=== PATIENT | male | born 1945 | race Caucasian/White ===

== ENCOUNTER 2020-11-24 08:05 | Outpatient (REF) | payer MEDICARE, SELFPAY ==
[2020-11-24 09:01] LABS: MANUAL DIFF FLAG NO
[2020-11-24 09:10] LABS: Basophils Percent Auto 0.7 % (0-2); Eosinophils Absolute Auto 0.1 X10*3/uL (0.0-0.4); Eosinophils Percent Auto 2.6 % (0-4); Hematocrit 44.5 % (42-52); Hemoglobin 14.6 g/dl (14.0-18.0); Imm Gran Abs Auto 0.02 X10*3/uL (0.00-0.03); Imm Gran Pct Auto 0.4 % (0.0-0.4); Lymphocytes Absolute Auto 1.3 X10*3/uL (1.2-4.9); Lymphocytes Percent Auto 23.6 % (20-40); Mean Corpuscular HGB Conc 32.8 g/dl (31.0-36.0); Mean Corpuscular Hemoglobin 29.5 pg (27.0-33.0); Mean Corpuscular Volume 89.9 fL (80-98); Mean Platelet Volume 9.8 fL (9.4-12.4); Monocytes Absolute Auto 0.5 X10*3/uL (0.1-1.2); Monocytes Percent Auto 9.2 % (2-11); Neutrophils Absolute Auto 3.4 X10*3/uL (2.0-8.3); Neutrophils Percent Auto 63.5 % (45-73); Platelet Count 169 X10*3/uL (160-400); Red Blood Count 4.95 X10*6/uL (4.60-5.80); Red Cell Distribution Width 12.5 % (11.0-16.0); White Blood Count 5.4 X10*3/uL (4.8-10.8)
[2020-11-24 09:41] LABS: Alanine Aminotransferase 14 U/L (0-40); Albumin Level 4.2 g/dL (3.5-5.0); Alkaline Phosphatase 84 U/L (39-117); Anion Gap 13 (12-20); Aspartate Amino Transferase 13 U/L (5-37); Bilirubin Total 0.7 mg/dL (0.0-1.0); Blood Urea Nitrogen 18 mg/dL (9-16); Calcium 9.4 mg/dL (8.4-10.2); Carbon Dioxide 27 mmol/L (22-29); Chloride 109 mmol/L (96-108); Cholesterol 159 mg/dL; Estimated Glomerular Filt Rate > 60; Glucose Random 94 mg/dL (60-115); HDL Cholesterol 33 mg/dL; LDL Cholesterol Calculated 94 mg/dl; Potassium 4.1 mmol/L (3.3-5.1); Sodium 145 mmol/L (135-145); Total Protein 7.1 g/dL (6.5-8.0); Triglycerides 160 mg/dL
[2020-11-24 09:42] LABS: Free T4 (Free Thyroxine) 0.97 ng/dL (0.71-1.85); Thyroid Stimulating Hormone 1.87 uIU/mL (0.32-4.0)
[2020-11-24 09:59] LABS: Folate 8.9 ng/mL (> or = 4.0); Vitamin B12 480 pg/mL (200-900)
== END 2020-11-24 08:06 | disposition home or self-care (01) ==
LOC: HO.LAB 08:05
PROVIDERS: PCP Internal Medicine; Visit Provider Internal Medicine
DX: I10 Essential (primary) hypertension (principal); E78.00 Pure hypercholesterolemia, unspecified
CPT/HCPCS: 36415; 80053; 80061; 82607; 82746; 84439; 84443; 85025

== ENCOUNTER 2021-10-03 12:47 | Emergency (ER) | payer OTHER, MEDICARE, SELFPAY ==
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
[2021-10-03 12:57] VITALS: BP 155/76; PULSE 62; RESP 18; TEMP 36; O2SAT 94; BMI 32.8
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
[2021-10-03] MEDS: Cyclobenzaprine HCl 5 MG TABLET PO (13:26)
[2021-10-03 15:39] VITALS: BP 160/80; PULSE 89; RESP 20; TEMP 36.6; O2SAT 98
== END 2021-10-03 15:51 | disposition home or self-care (01) ==
PROVIDERS: Emergency Provider Emergency Medicine Emergency Medical Services; PCP Internal Medicine
DX: S89.92XA Unspecified injury of left lower leg, initial encounter (principal); S49.92XA Unspecified injury of left shoulder and upper arm, initial encounter; S16.1XXA Strain of muscle, fascia and tendon at neck level, initial encounter; M25.512 Pain in left shoulder; M54.2 Cervicalgia; M79.605 Pain in left leg; G44.309 Post-traumatic headache, unspecified, not intractable; Y99.9 Unspecified external cause status; V43.52XA Car driver injured in collision with other type car in traffic accident, initial encounter; Y93.9 Activity, unspecified; Y92.410 Unspecified street and highway as the place of occurrence of the external cause; Z79.899 Other long term (current) drug therapy
CPT/HCPCS: 70450; 72125; 73030; 73552; 99283; 99284

== ENCOUNTER 2022-02-23 12:07 | Emergency (ER) | payer MEDICARE, SELFPAY ==
--- NOTE | ~2022-02-23 | XR_ITS ---
EXAMINATION: XR CHEST CLINICAL INFORMATION: Chest pain COMPARISON: None TECHNIQUE: Frontal view of the chest was obtained. FINDINGS: The lungs are well-expanded and clear of acute pneumonic process. The heart size and pulmonary vascularity is normal. Soft tissue density in the lower mediastinum may represent small hiatal hernia. No gross bony abnormality seen. XR/XR chest 1V IMPRESSION: Unremarkable chest exam.
[2022-02-23 12:15] VITALS: BP 180/70; PULSE 52
[2022-02-23 13:07] VITALS: BP 133/80; PULSE 48; RESP 20; TEMP 36.7; O2SAT 96; BMI 32.1
--- NOTE | 2022-02-23 13:10 | ECG_ITS ---
Test Reason : CP Blood Pressure : / mmHG Vent. Rate : 047 BPM Atrial Rate : 047 BPM P-R Int : 206 ms QRS Dur : 084 ms QT Int : 484 ms P-R-T Axes : -03 013 016 degrees QTc Int : 428 ms Sinus bradycardia Nonspecific ST abnormality Abnormal ECG No previous ECGs available Referred By: Elis Velasquez Electronically Signed By:NICKY GRIGSBY MD
--- NOTE | 2022-02-23 13:11 | ED_ITS ---
HPI - General Adult General Chief complaint: General Medical <Elis Velasquez MD - Last Filed: 02/23/22 13:12> Stated complaint: HIGH BLOOD PRESSURE PER EMS <Elis Velasquez MD - Last Filed: 02/23/22 13:12> Time Seen by Provider: 02/23/22 16:16 <Elis Velasquez MD - Last Filed: 02/23/22 13:12> Source: patient and EMS <NICK Morel - Last Filed: 02/23/22 16:59> Mode of arrival: EMS <NICK Morel - Last Filed: 02/23/22 16:59> Limitations: no limitations <NICK Morel - Last Filed: 02/23/22 16:59> History of Present Illness HPI narrative: 76 yo male history of anxiety, hypertension on lisinopril and atenolol, ventral hernia on a, COPD, PVD, obesity, osteoarthritis, carpal tunnel who presents to the ER for evaluation of elevated blood pressure. He reports taking his blood pressure this morning with his wrist monitor at home and initial reading was 180. He repeated in the other arm and it was 200. He had his brother's home nurse repeat his blood pressure and the readings were similar. She instructed him to come to the ER. At the time he was feeling ?slightly off. ? He had felt short of breath and anxious when EMS arrived. He was given nitro and aspirin by EMS. He reports taking both of his atenolol and lisinopril around 10 30 this morning and he took his blood pressure around noon time. He states his blood pressure is usually in the 130s systolic. He has been compliant. He denies any excessive waking her salt intake. No headache or chest pain at this time. <NICK Morel - Last Filed: 02/23/22 16:59> MD complaint: Elevated blood pressure <NICK Morel - Last Filed: 02/23/22 16:59> Onset (ago): hour(s) <NICK Morel Last Filed: 02/23/22 16:59> Location: head and chest <NICK Morel Last Filed: 02/23/22 16:59> Radiation: non-radiation <NICK Morel - Last Filed: 02/23/22 16:59> Severity: mild <NICK Morel - Last Filed: 02/23/22 16:59> Pain Consistency: now resolved <NICK Morel - Last Filed: 02/23/22 16:59> Relieving factors: none <NICK Morel - Last Filed: 02/23/22 16:59> Exacerbating factors: none <NICK Morel - Last Filed: 02/23/22 16:59> Associated symptoms: denies other symptoms <NICK Morel - Last Filed: 02/23/22 16:59> Treatments prior to arrival: none <NICK Morel - Last Filed: 02/23/22 16:59> Related Data Home medications: Home Medications Medication Instructions Recorded Confirmed cholecalciferol (vitamin D3) 25 25 mcg PO DAILY 02/28/20 12/08/21 mcg (1,000 unit) capsule cyanocobalamin (vitamin B-12) 500 500 mcg PO DAILY 02/28/20 12/08/21 mcg lozenges (Vitamin B-12) Previous Rx's Medication Instructions Recorded fluticasone propionate 50 2 spray intranasal DAILY #16 grams 03/13/21 mcg/actuation nasal spray,suspension (Allergy Relief (fluticasone)) atenolol 100 mg tablet 100 mg PO DAILY #90 tabs 06/04/21 lisinopril 40 mg tablet 40 mg PO DAILY 90 days #90 tabs 06/04/21 sertraline 50 mg tablet 50 mg PO DAILY #90 tabs 06/04/21 celecoxib 100 mg capsule 100 mg PO DAILY #90 caps 09/18/21 cyclobenzaprine 10 mg tablet 5 mg PO TID PRN muscle pain 7 days 10/03/21 #21 tabs nirmatrelvir 300 mg (150 mg See Rx Instructions PO .COMPLEX 01/07/22 x2)-ritonavir 100 mg tablet,dose #30 ea pack(EUA) (Paxlovid) oxycodone-acetaminophen 5 mg-325 1 tab PO Q6H PRN pain #112 tabs 02/12/22 mg tablet (Percocet) <Elis Velasquez MD - Last Filed: 02/23/22 13:12> Allergies/adverse reactions: Allergies Allergy/AdvReac Type Severity Reaction Status Date / Time No Known Allergies Allergy Verified 12/08/21 10:26 <Elis Velasquez MD - Last Filed: 02/23/22 13:12> Review of Systems Review of Systems: Constitutional: No Fever, No Chills ENT/Mouth: No sore throat, No Rhinorrhea Eyes: No Eye Pain, No Swelling, No Redness Cardiovascular: + Chest Pain, + SOB, No Orthopnea, No Edema Respiratory: No Cough, No Sputum, No Wheezing, No dyspnea Gastrointestinal: No Nausea, No Vomiting, No Diarrhea, No abdominal Pain Genitourinary: No Dysuria, No Urinary Frequency, No Hematuria Musculoskeletal: No joint pain, No Myalgias Skin: No Skin Lesions, No rash Neuro: No Weakness, No Numbness, No Dizziness, + Headache Psych: + Anxiety/Panic, No Depression Heme/Lymph: No Bruising, No Lymphadenopathy <NICK Morel - Last Filed: 02/23/22 16:59> [facility] Past Medical History Medical History: Medical History (Updated 02/23/22 @ 16:29 by NICK Morel) Anxiety Carpal tunnel syndrome COPD (chronic obstructive pulmonary disease) COVID-19 virus infection Diverticular disease Erectile dysfunction Fatty liver Hemorrhoids Hepatitis C Hypertension Obesity (BMI 30-39.9) Osteoarthritis Peripheral vascular disease Pernicious anemia <Elis Velasquez MD - Last Filed: 02/23/22 13:12> Surgical History: Surgical History History of arthroscopy of right knee History of carpal tunnel release History of knee replacement procedure of left knee History of knee replacement procedure of right knee History of nasal surgery History of removal of cyst History of tonsillectomy History of umbilical hernia repair <Elis Velasquez MD - Last Filed: 02/23/22 13:12> Family History Family History: Family History Father No problems noted. Mother Colon cancer Hypertension Brother Colon cancer Sister Colon cancer <Elis Velasquez MD - Last Filed: 02/23/22 13:12> Social History Social History: Social History (Updated 12/08/21 @ 10:47 by Janel Pitts MD) Housing: House Alcohol intake: former Patient Tobacco Use Status: Former Tobacco user Years Smoked: quit 1995 e-Cigarette/Vaping Use: Never Used Second Hand Smoke Exposure: No Advance Directives: No Advance Directives Information Provided: No Current occupational status: retired Cognitive needs: No Hearing needs: No Vision needs: Yes <Elis Velasquez MD - Last Filed: 02/23/22 13:12> Physical Exam ED Vital Signs: Vital Signs - 24 hr 02/23/22 13:07 02/23/22 15:25 02/23/22 15:33 Temperature 98.0 F 97.8 F Pulse Rate 48 L 48 L 50 Respiratory Rate 20 15 16 Blood Pressure 133/80 156/75 H 150/77 H Pulse Oximetry 96 98 99 Oxygen Delivery Method Room Air Room Air Room Air 02/23/22 16:40 Temperature 97.6 F Pulse Rate 50 Respiratory Rate 13 Blood Pressure 134/92 H Pulse Oximetry 99 Oxygen Delivery Method Room Air BMI result Body Mass Index 32.1 <Elis Velasquez MD - Last Filed: 02/23/22 13:12> Vital Signs - 24 hr 02/23/22 13:07 02/23/22 15:25 02/23/22 15:33 Temperature 98.0 F 97.8 F Pulse Rate 48 L 48 L 50 Respiratory Rate 20 15 16 Blood Pressure 133/80 156/75 H 150/77 H Pulse Oximetry 96 98 99 Oxygen Delivery Method Room Air Room Air Room Air 02/23/22 16:40 Temperature 97.6 F Pulse Rate 50 Respiratory Rate 13 Blood Pressure 134/92 H Pulse Oximetry 99 Oxygen Delivery Method Room Air BMI result Body Mass Index 32.1 <NICK Morel - Last Filed: 02/23/22 16:59> Appearance: Alert. Oriented X3. No acute distress. Eyes: Pupils equal, round and reactive to light. ENT: Pharynx normal. Neck: Normal inspection. Neck supple. CVS: Normal heart rate and rhythm. Pulses normal. Respiratory: No respiratory distress. Breath sounds normal. Abdomen: Soft and nontender. +BS x4 Skin: Skin warm and dry. Normal skin color. Normal skin turgor. No rashes. Extremities: No lower extremity edema. Neuro: Oriented X 3. No motor deficit. No sensory deficit. <NICK Morel - Last Filed: 02/23/22 16:59> Course Course Course Narrative: 76-year-old male with history of hypertension on lisinopril and atenolol who presents to the ER for evaluation of elevated blood pressure readings at home, reportedly 180-200 systolic. On arrival to the ER his blood pressure is 150 systolic. He was reporting short of breath but no chest pain or headache. No vision changes. Triage initiated lab workup and EKG. Troponin is negative. Labs unremarkable. Chest x-ray is clear. Renal function is normal and only trace protein in his urine. Repeat blood pressure in the 140 systolic. He appears well on exam is unremarkable. At this time no acute intervention to his antihypertensive regimen is required. He will follow-up with Dr. Pitts his outpatient PCP. He was advised to decrease his salt intake and increase his aerobic exercise. Return precautions were discussed. Stable for DC home. Patient agrees with plan. <NICK Morel - Last Filed: 02/23/22 16:59> Reevaluation(s) Reevaluation #1: 76-year-old male with history of hypertension controlled with lisinopril and atenolol, patient is was complaining of slight headache, mild chest pain and difficulty breathing his blood pressure this morning was checked by a nurse systolic was above 200 and was told to come to the hospital for further evaluation, patient in the ED had initial medical screening exam was unremarkable. Labs and EKG was ordered from triage. <Elis Velasquez MD - Last Filed: 02/23/22 13:12> Time: 13:11 <Elis Velasquez MD - Last Filed: 02/23/22 13:12> Medications Administered Discontinued Medications Generic Name Dose Route Start Last Admin Trade Name Freq PRN Reason Stop Dose Admin Sodium Chloride 1,000 mls @ 999 mls/hr 02/23/22 13:10 02/23/22 16:29 Ns IV 02/23/22 14:10 Infused .Q1H1M ONE Infusion <lEis Velasquez MD - Last Filed: 02/23/22 13:12> Medications Administered Discontinued Medications Generic Name Dose Route Start Last Admin Trade Name Freq PRN Reason Stop Dose Admin Sodium Chloride 1,000 mls @ 999 mls/hr 02/23/22 13:10 02/23/22 16:29 Ns IV 02/23/22 14:10 Infused .Q1H1M ONE Infusion <NICK Morel - Last Filed: 02/23/22 16:59> Medical Decision Making Lab Data Result diagrams: : 02/23/22 13:17 02/23/22 13:17 <Elis Velasquez MD - Last Filed: 02/23/22 13:12> Labs: Lab Results 02/23/22 02/23/22 02/23/22 Range/Units 13:17 13:17 13:17 WBC 5.9 (4.8-10.8) X10*3/uL RBC 4.70 (4.60-5.80) X10*6/uL Hgb 13.8 L (14.0-18.0) g/dl Hct 41.4 L (42.0-52.0) % MCV 88.1 (80.0-98.0) fL MCH 29.4 (27.0-33.0) pg MCHC 33.3 (31.0-36.0) g/dl RDW 12.6 (11.0-16.0) % Plt Count 187 (160-400) X10*3/uL MPV 9.4 (9.4-12.4) fL Immature Gran % (Auto) 0.2 (0.0-0.4) % Neut % (Auto) 66.5 (45-73) % Lymph % (Auto) 20.1 (20-40) % [place]on % (Auto) 10.4 (2-11) % Eos % (Auto) 1.9 (0-4) % Baso % (Auto) 0.9 (0-2) % Lymph # (Auto) 1.2 (1.2-4.9) X10*3/uL [place]on # (Auto) 0.6 (0.1-1.2) X10*3/uL Eos # (Auto) 0.1 (0.0-0.4) X10*3/uL Baso # (Auto) 0.1 (0.0-0.2) X10*3/uL Abs Immat Gran (auto) 0.01 (0.00-0.03) X10*3/uL Absolute Neuts (auto) 3.9 (2.0-8.3) x10*3/uL Absolute Nucleated RBC 0.000 (0.0-0.012) X10*3/uL Nucleated RBC % (auto) 0.0 (0.0-0.2) /100WBC Sodium 142 (135-145) mmol/L Potassium 4.5 (3.3-5.1) mmol/L Chloride 108 (96-108) mmol/L Carbon Dioxide 25 (22-29) mmol/L Anion Gap 14 (12-20) BUN 16 (9-16) mg/dL Creatinine 1.06 (0.5-1.4) mg/dL Estim Creat Clear Calc 75.1 Estimated GFR > 60 Random Glucose 77 (60-115) mg/dL Calcium 9.4 (8.4-10.2) mg/dL Total Bilirubin 0.5 (0.0-1.0) mg/dL Direct Bilirubin 0.2 (0.0-0.5) mg/dL AST 15 (5-37) U/L ALT 15 (0-40) U/L Alkaline Phosphatase 76 (39-117) U/L Troponin I High Sens < 3.5 (<3.5-35.0) ng/L Total Protein 7.1 (6.5-8.0) g/dL Albumin 4.2 (3.5-5.0) g/dL Lipase 36 (8-78) U/L Urine Color Urine Appearance Urine pH (5.0-9.0) Ur Specific [place] (1.005-1.025) Urine Protein (Neg-Trace) mg/dL Urine Glucose (UA) (Negative) mg/dL Urine Ketones (Negative) mg/dL Urine Blood (Negative) Urine Nitrite (Negative) Ur Leukocyte Esterase (Negative) 02/23/22 Range/Units 15:46 WBC (4.8-10.8) X10*3/uL RBC (4.60-5.80) X10*6/uL Hgb (14.0-18.0) g/dl Hct (42.0-52.0) % MCV (80.0-98.0) fL MCH (27.0-33.0) pg MCHC (31.0-36.0) g/dl RDW (11.0-16.0) % Plt Count (160-400) X10*3/uL MPV (9.4-12.4) fL Immature Gran % (Auto) (0.0-0.4) % Neut % (Auto) (45-73) % Lymph % (Auto) (20-40) % Weston % (Auto) (2-11) % Eos % (Auto) (0-4) % Baso % (Auto) (0-2) % Lymph # (Auto) (1.2-4.9) X10*3/uL Weston # (Auto) (0.1-1.2) X10*3/uL Eos # (Auto) (0.0-0.4) X10*3/uL Baso # (Auto) (0.0-0.2) X10*3/uL Abs Immat Gran (auto) (0.00-0.03) X10*3/uL Absolute Neuts (auto) (2.0-8.3) x10*3/uL Absolute Nucleated RBC (0.0-0.012) X10*3/uL Nucleated RBC % (auto) (0.0-0.2) /100WBC Sodium (135-145) mmol/L Potassium (3.3-5.1) mmol/L Chloride (96-108) mmol/L Carbon Dioxide (22-29) mmol/L Anion Gap (12-20) BUN (9-16) mg/dL Creatinine (0.5-1.4) mg/dL Estim Creat Clear Calc Estimated GFR Random Glucose (60-115) mg/dL Calcium (8.4-10.2) mg/dL Total Bilirubin (0.0-1.0) mg/dL Direct Bilirubin (0.0-0.5) mg/dL AST (5-37) U/L ALT (0-40) U/L Alkaline Phosphatase (39-117) U/L Troponin I High Sens (<3.5-35.0) ng/L Total Protein (6.5-8.0) g/dL Albumin (3.5-5.0) g/dL Lipase (8-78) U/L Urine Color Yellow Urine Appearance Clear Urine pH 5.5 (5.0-9.0) Ur Specific [place] >= 1.030 H (1.005-1.025) Urine Protein Trace (Neg-Trace) mg/dL Urine Glucose (UA) Negative (Negative) mg/dL Urine Ketones Negative (Negative) mg/dL Urine Blood Negative (Negative) Urine Nitrite Negative (Negative) Ur Leukocyte Esterase Negative (Negative) <Elis Velasquez MD - Last Filed: 02/23/22 13:12> Lab Results 02/23/22 02/23/22 02/23/22 Range/Units 13:17 13:17 13:17 WBC 5.9 (4.8-10.8) X10*3/uL RBC 4.70 (4.60-5.80) X10*6/uL Hgb 13.8 L (14.0-18.0) g/dl Hct 41.4 L (42.0-52.0) % MCV 88.1 (80.0-98.0) fL MCH 29.4 (27.0-33.0) pg MCHC 33.3 (31.0-36.0) g/dl RDW 12.6 (11.0-16.0) % Plt Count 187 (160-400) X10*3/uL MPV 9.4 (9.4-12.4) fL Immature Gran % (Auto) 0.2 (0.0-0.4) % Neut % (Auto) 66.5 (45-73) % Lymph % (Auto) 20.1 (20-40) % Weston % (Auto) 10.4 (2-11) % Eos % (Auto) 1.9 (0-4) % Baso % (Auto) 0.9 (0-2) % Lymph # (Auto) 1.2 (1.2-4.9) X10*3/uL Weston # (Auto) 0.6 (0.1-1.2) X10*3/uL Eos # (Auto) 0.1 (0.0-0.4) X10*3/uL Baso # (Auto) 0.1 (0.0-0.2) X10*3/uL Abs Immat Gran (auto) 0.01 (0.00-0.03) X10*3/uL Absolute Neuts (auto) 3.9 (2.0-8.3) x10*3/uL Absolute Nucleated RBC 0.000 (0.0-0.012) X10*3/uL Nucleated RBC % (auto) 0.0 (0.0-0.2) /100WBC Sodium 142 (135-145) mmol/L Potassium 4.5 (3.3-5.1) mmol/L Chloride 108 (96-108) mmol/L Carbon Dioxide 25 (22-29) mmol/L Anion Gap 14 (12-20) BUN 16 (9-16) mg/dL Creatinine 1.06 (0.5-1.4) mg/dL Estim Creat Clear Calc 75.1 Estimated GFR > 60 Random Glucose 77 (60-115) mg/dL Calcium 9.4 (8.4-10.2) mg/dL Total Bilirubin 0.5 (0.0-1.0) mg/dL Direct Bilirubin 0.2 (0.0-0.5) mg/dL AST 15 (5-37) U/L ALT 15 (0-40) U/L Alkaline Phosphatase 76 (39-117) U/L Troponin I High Sens < 3.5 (<3.5-35.0) ng/L Total Protein 7.1 (6.5-8.0) g/dL Albumin 4.2 (3.5-5.0) g/dL Lipase 36 (8-78) U/L Urine Color Urine Appearance Urine pH (5.0-9.0) Ur Specific [place] (1.005-1.025) Urine Protein (Neg-Trace) mg/dL Urine Glucose (UA) (Negative) mg/dL Urine Ketones (Negative) mg/dL Urine Blood (Negative) Urine Nitrite (Negative) Ur Leukocyte Esterase (Negative) 02/23/22 Range/Units 15:46 WBC (4.8-10.8) X10*3/uL RBC (4.60-5.80) X10*6/uL Hgb (14.0-18.0) g/dl Hct (42.0-52.0) % MCV (80.0-98.0) fL MCH (27.0-33.0) pg MCHC (31.0-36.0) g/dl RDW (11.0-16.0) % Plt Count (160-400) X10*3/uL MPV (9.4-12.4) fL Immature Gran % (Auto) (0.0-0.4) % Neut % (Auto) (45-73) % Lymph % (Auto) (20-40) % Weston % (Auto) (2-11) % Eos % (Auto) (0-4) % Baso % (Auto) (0-2) % Lymph # (Auto) (1.2-4.9) X10*3/uL [place]on # (Auto) (0.1-1.2) X10*3/uL Eos # (Auto) (0.0-0.4) X10*3/uL Baso # (Auto) (0.0-0.2) X10*3/uL Abs Immat Gran (auto) (0.00-0.03) X10*3/uL Absolute Neuts (auto) (2.0-8.3) x10*3/uL Absolute Nucleated RBC (0.0-0.012) X10*3/uL Nucleated RBC % (auto) (0.0-0.2) /100WBC Sodium (135-145) mmol/L Potassium (3.3-5.1) mmol/L Chloride (96-108) mmol/L Carbon Dioxide (22-29) mmol/L Anion Gap (12-20) BUN (9-16) mg/dL Creatinine (0.5-1.4) mg/dL Estim Creat Clear Calc Estimated GFR Random Glucose (60-115) mg/dL Calcium (8.4-10.2) mg/dL Total Bilirubin (0.0-1.0) mg/dL Direct Bilirubin (0.0-0.5) mg/dL AST (5-37) U/L ALT (0-40) U/L Alkaline Phosphatase (39-117) U/L Troponin I High Sens (<3.5-35.0) ng/L Total Protein (6.5-8.0) g/dL Albumin (3.5-5.0) g/dL Lipase (8-78) U/L Urine Color Yellow Urine Appearance Clear Urine pH 5.5 (5.0-9.0) Ur Specific [place] >= 1.030 H (1.005-1.025) Urine Protein Trace (Neg-Trace) mg/dL Urine Glucose (UA) Negative (Negative) mg/dL Urine Ketones Negative (Negative) mg/dL Urine Blood Negative (Negative) Urine Nitrite Negative (Negative) Ur Leukocyte Esterase Negative (Negative) <NICK Morel - Last Filed: 02/23/22 16:59> ECG Data Attestation: I personally reviewed and interpreted this ECG as follows: <NICK Godfrey - Last Filed: 02/23/22 16:59> Prior ECG tracings: not available for review <NICK Morel - Last Filed: 02/23/22 16:59> Interpretation: Sinus bradycardia, heart rate 47 beats per minute, AK interval prolonged slightly 206 MS, normal QTC, no ST segment elevations or depressions. <NICK Morel - Last Filed: 02/23/22 16:59> Critical Care Time Critical Care Time Critical Care Time: No <NICK Morel - Last Filed: 02/23/22 16:59> Discharge Plan Discharge Clinical Impression: Hypertension, Ventral hernia <Elis Velasquez MD - Last Filed: 02/23/22 13:12> Patient Disposition: Home, Self-Care <Elis Velasquez MD - Last Filed: 02/23/22 13:12> Instructions: DASH Eating Plan (ED), Hypertension (ED) <Elis Velasquez MD - Last Filed: 02/23/22 13:12> Additional Instructions: Lab workup today was normal. Chest x-ray was normal. Your heart enzyme was negative. Your blood pressure was 140-150s/70-80's while in the ER Recommend continuing your current BP medications Decrease your salt intake, increase aerobic exercise Follow up with your PCP If you develop new or worsening symptoms call 911 or come back to the ER for further evaluation. <Elis Velasquez MD - Last Filed: 02/23/22 13:12> Prescriptions: No Action atenolol 100 mg tablet 100 mg PO DAILY Qty: 90 3RF lisinopril 40 mg tablet 40 mg PO DAILY 90 Days Qty: 90 2RF sertraline 50 mg tablet 50 mg PO DAILY Qty: 90 3RF celecoxib 100 mg capsule 100 mg PO DAILY Qty: 90 2RF Paxlovid (EUA) 300 mg (150 mg x 2)-100 mg tablets,dose pack See Rx Instructions PO .COMPLEX Qty: 30 0RF Rx Instructions: take TWO 150 mg tablets of nirmatrelvir with ONE 100 mg tablet of ritonavir twice daily for 5 days PO oxycodone-acetaminophen [Percocet] 5-325 mg tablet 1 tab PO Q6H PRN (Reason: pain) Qty: 112 0RF cyclobenzaprine 10 mg tablet 5 mg PO TID PRN (Reason: muscle pain) 7 Days Qty: 21 0RF cholecalciferol (vitamin D3) 25 mcg (1,000 unit) capsule 25 mcg PO DAILY cyanocobalamin (vitamin B-12) [Vitamin B-12] 500 mcg lozenge 500 mcg PO DAILY fluticasone propionate [Allergy Relief (fluticasone)] 50 mcg/actuation spray,suspension 2 spray intranasal DAILY Qty: 16 4RF Rx Instructions: administer into each nostril <Elis Velasquze MD - Last Filed: 02/23/22 13:12>
[2022-02-23 13:22] LABS: MANUAL DIFF FLAG NO
[2022-02-23 13:25] LABS: Basophils Absolute Auto 0.1 X10*3/uL (0.0-0.2); Basophils Percent Auto 0.9 % (0-2); Eosinophils Absolute Auto 0.1 X10*3/uL (0.0-0.4); Eosinophils Percent Auto 1.9 % (0-4); Hematocrit 41.4 % (42.0-52.0); Hemoglobin 13.8 g/dl (14.0-18.0); Imm Gran Abs Auto 0.01 X10*3/uL (0.00-0.03); Imm Gran Pct Auto 0.2 % (0.0-0.4); Lymphocytes Absolute Auto 1.2 X10*3/uL (1.2-4.9); Lymphocytes Percent Auto 20.1 % (20-40); Mean Corpuscular HGB Conc 33.3 g/dl (31.0-36.0); Mean Corpuscular Hemoglobin 29.4 pg (27.0-33.0); Mean Corpuscular Volume 88.1 fL (80.0-98.0); Mean Platelet Volume 9.4 fL (9.4-12.4); Monocytes Absolute Auto 0.6 X10*3/uL (0.1-1.2); Monocytes Percent Auto 10.4 % (2-11); Neutrophils Absolute Auto 3.9 x10*3/uL (2.0-8.3); Neutrophils Percent Auto 66.5 % (45-73); Platelet Count 187 X10*3/uL (160-400); Red Cell Distribution Width 12.6 % (11.0-16.0); White Blood Count 5.9 X10*3/uL (4.8-10.8)
[2022-02-23 13:48] LABS: Troponin-I High Sensitivity < 3.5 ng/L (<3.5-35.0)
[2022-02-23 15:11] LABS: Alanine Aminotransferase 15 U/L (0-40); Albumin Level 4.2 g/dL (3.5-5.0); Alkaline Phosphatase 76 U/L (39-117); Anion Gap 14 (12-20); Aspartate Amino Transferase 15 U/L (5-37); Bilirubin Direct 0.2 mg/dL (0.0-0.5); Bilirubin Total 0.5 mg/dL (0.0-1.0); Blood Urea Nitrogen 16 mg/dL (9-16); Calcium 9.4 mg/dL (8.4-10.2); Carbon Dioxide 25 mmol/L (22-29); Chloride 108 mmol/L (96-108); Creatinine Clr Calc Pharmacy 75.1; Estimated Glomerular Filt Rate > 60; Glucose Random 77 mg/dL (60-115); Lipase 36 U/L (8-78); Potassium 4.5 mmol/L (3.3-5.1); Sodium 142 mmol/L (135-145); Total Protein 7.1 g/dL (6.5-8.0)
[2022-02-23] MEDS: 0.9 % Sodium Chloride 1,000 ML 999 ML IV (15:24)
[2022-02-23 15:25] VITALS: BP 156/75; PULSE 48; RESP 15; O2SAT 98
[2022-02-23 15:33] VITALS: BP 150/77; PULSE 50; RESP 16; TEMP 36.6; O2SAT 99
[2022-02-23 15:57] LABS: Appearance Urine Clear; Color Urine Yellow; Glucose Urine UA Negative (Negative); Leukocyte Esterase Urine Negative (Negative); Nitrite Urine Negative (Negative); PH 5.5 (5.0-9.0); Specific Gravity - Urine >= 1.030 (1.005-1.025); Urine Blood Negative (Negative); Urine Ketones Negative (Negative); Urine Protein Trace mg/dL (Neg-Trace)
[2022-02-23 16:40] VITALS: BP 134/92; PULSE 50; RESP 13; TEMP 36.4; O2SAT 99
== END 2022-02-23 17:06 | disposition home or self-care (01) ==
PROVIDERS: Emergency Medicine; Emergency Provider Internal Medicine
DX: K43.9 Ventral hernia without obstruction or gangrene (principal); R07.89 Other chest pain; I10 Essential (primary) hypertension; Z79.899 Other long term (current) drug therapy; Z87.891 Personal history of nicotine dependence
CPT/HCPCS: 36415; 71045; 80048; 80076; 81003; 83690; 84484; 85025; 93005; 96360; 99284

== ENCOUNTER 2022-03-02 07:12 | Outpatient (REF) | payer MEDICARE, SELFPAY ==
[2022-03-02 11:38] LABS: MANUAL DIFF FLAG NO
[2022-03-02 12:17] LABS: Basophils Percent Auto 0.7 % (0-2); Eosinophils Absolute Auto 0.2 X10*3/uL (0.0-0.4); Eosinophils Percent Auto 2.9 % (0-4); Hematocrit 44.7 % (42.0-52.0); Hemoglobin 14.6 g/dl (14.0-18.0); Imm Gran Abs Auto 0.01 X10*3/uL (0.00-0.03); Imm Gran Pct Auto 0.2 % (0.0-0.4); Lymphocytes Absolute Auto 1.3 X10*3/uL (1.2-4.9); Lymphocytes Percent Auto 22.2 % (20-40); Mean Corpuscular HGB Conc 32.7 g/dl (31.0-36.0); Mean Corpuscular Hemoglobin 29.6 pg (27.0-33.0); Mean Corpuscular Volume 90.5 fL (80.0-98.0); Mean Platelet Volume 9.9 fL (9.4-12.4); Monocytes Absolute Auto 0.6 X10*3/uL (0.1-1.2); Monocytes Percent Auto 9.5 % (2-11); Neutrophils Absolute Auto 3.7 x10*3/uL (2.0-8.3); Neutrophils Percent Auto 64.5 % (45-73); Platelet Count 183 X10*3/uL (160-400); Red Blood Count 4.94 X10*6/uL (4.60-5.80); Red Cell Distribution Width 13.1 % (11.0-16.0); White Blood Count 5.8 X10*3/uL (4.8-10.8)
[2022-03-02 13:01] LABS: Folate 6.3 ng/mL (> or = 4.0); Vitamin B12 522 pg/mL (200-900)
[2022-03-02 13:05] LABS: Alanine Aminotransferase 11 U/L (0-40); Alkaline Phosphatase 74 U/L (39-117); Anion Gap 12 (12-20); Aspartate Amino Transferase 14 U/L (5-37); Bilirubin Total 0.7 mg/dL (0.0-1.0); Blood Urea Nitrogen 21 mg/dL (9-16); Calcium 9.2 mg/dL (8.4-10.2); Carbon Dioxide 27 mmol/L (22-29); Chloride 108 mmol/L (96-108); Cholesterol 151 mg/dL; Estimated Glomerular Filt Rate > 60; Free T4 (Free Thyroxine) 0.83 ng/dL (0.71-1.85); Glucose Random 99 mg/dL (60-115); HDL Cholesterol 37 mg/dL; LDL Cholesterol Calculated 86 mg/dl; Sodium 143 mmol/L (135-145); Thyroid Stimulating Hormone 2.44 uIU/mL (0.32-4.0); Triglycerides 143 mg/dL
== END 2022-03-02 07:13 | disposition home or self-care (01) ==
LOC: HO.HMGCLDS 07:12
PROVIDERS: PCP Internal Medicine; Visit Provider Internal Medicine
DX: I10 Essential (primary) hypertension (principal); E78.00 Pure hypercholesterolemia, unspecified
CPT/HCPCS: 36415; 80053; 80061; 82607; 82746; 84439; 84443; 85025

== ENCOUNTER 2022-12-15 09:55 | Outpatient (AMB) | payer MEDICARE, SELFPAY ==
[2022-12-15 10:04] VITALS: BP 138/70; PULSE 56; O2SAT 97; BMI 31.5
--- NOTE | 2022-12-15 10:04 | A.OFFVIS_ITS ---
Intake Vital Signs 12/15/22 10:04 Height 5 ft 11 in Weight 226 lb BMI 31.5 BP 138/70 Blood Pressure Location Lt brachial Position Sitting Pulse 56 Pulse Source Pulse Oximeter Pulse Oximetry (%) 97 Oxygen Delivery Method Room Air Intake Visit Reasons: SWV G0439 Allergies No Known Allergies Allergy (Verified 12/15/22 10:06) Medication List - Last Reconciled 12/15/22 by Janel Pitts MD atenolol 100 mg PO DAILY celecoxib 100 mg PO DAILY cholecalciferol (vitamin D3) 25 mcg PO DAILY cyanocobalamin (vitamin B-12) (Vitamin B-12) 500 mcg PO DAILY cyclobenzaprine 5 mg (1/2 x 10 mg) PO TID PRN 7 days fluticasone propionate 50 mcg/actuation (Allergy Relief (fluticasone)) 2 sprays intranasal DAILY lisinopril 40 mg PO DAILY 90 days oxycodone-acetaminophen 5-325 mg (Percocet) 1 tab PO Q6H PRN sertraline 100 mg PO DAILY 90 days HPI SWV G0439 HPI Details 77-year-old obese male with hypertension generalized anxiety disorder COPD hypertension and osteoarthritis knee and hip coming in for well visit. Last seen in September 2022. Colonoscopy is up-to-date April 2027 with tubular adenoma 5 years problematic about son PFSH Medical History Anxiety Carpal tunnel syndrome COPD (chronic obstructive pulmonary disease) COVID-19 virus infection Diverticular disease Erectile dysfunction Fatty liver Hemorrhoids Hepatitis C Hypertension Obesity (BMI 30-39.9) Osteoarthritis Peripheral vascular disease Pernicious anemia Surgical History History of arthroscopy of right knee History of carpal tunnel release History of knee replacement procedure of left knee History of knee replacement procedure of right knee History of nasal surgery History of removal of cyst History of tonsillectomy History of umbilical hernia repair Family History (Updated 10/04/22 @ 09:37 by Monica James CMA) Father No problems noted. Mother Colon cancer Hypertension Brother Colon cancer Sister Colon cancer Social History Housing: House Alcohol intake: former Patient Tobacco Use Status: Former Tobacco user Tobacco use type: Cigarette Years Smoked: quit 1995 e-Cigarette/Vaping Use: Never Used Second Hand Smoke Exposure: No Current occupational status: retired Cognitive needs: No Hearing needs: No Vision needs: Yes Questionnaire Medicare Wellness Checkup [age] What gender do you identify with?: male During the past 4 weeks, how much have you been bothered by emotional problems such as feeling anxious, depressed, irritable, sad or downhearted, and blue?: quite a bit During the past 4 weeks, has your physical & emotional health limited your social activities with family, friends, neighbors, or groups?: slightly During the past 4 weeks, how much bodily pain have you generally had?: moderate pain During the past 4 weeks, was someone available to help you if you needed & wanted help?: yes, as much as I wanted During the past 4 weeks, what was the hardest physical activity you could do for at least 2 minutes?: moderate Can you get to places out of walking distance without help? (For eg., can you travel alone on buses, taxis or drive your car?): Yes Can you go shopping for groceries or clothes without someone's help?: Yes Can you prepare your own meals?: Yes Can you do your housework without help?: Yes Because of any health problems, do you need the help of another person with your personal care needs such as eating, bathing, dressing or getting around the house?: No Can you handle your own money without help?: Yes During the past 4 weeks, how would you rate your health in general?: good During the past 4 weeks how have things been going for you?: good & bad parts about equal Are you having difficulties driving your car?: sometimes Do you always fasten your seat belt when you are in a car?: yes, usually During past 4 weeks, have you been bothered by the following: never: Teeth or denture problems? and Problems using the telephone?, seldom: Falling or dizzy when standing up, sometimes: Trouble eating well? and Tiredness or fatigue? and always: Sexual problems? Have you fallen 2 or more times in the past year?: No Are you afraid of falling?: No Are you a smoker?: no During the past 4 weeks, how many drinks of wine, beer, or other alcoholic beverages did you have?: no alcohol at all Do you exercise for about 20 minutes 3 or more times a week?: yes, some of the time Have you been given information to help with the following?: yes: Hazards in your house that might hurt you? and yes: Keeping track of your medications? How often do you have trouble taking medicines the way you have been told to take them?: I always take medicine as prescribed How confident are you that you can control & manage most of your health problems?: somewhat confident What is your race?: White PHQ-9 Over the last 2 weeks, how often have you been bothered by any of the following problems? 1. Little interest or pleasure in doing things: several days 2. Feeling down, depressed, or hopeless: more than half the days 3. Trouble falling or staying asleep, or sleeping too much: more than half the days 4. Feeling tired or having little energy: more than half the days 5. Poor appetite or overeating: not at all 6. Feeling bad about yourself - or that you are a failure or have let yourself or your family down: more than half the days 7. Trouble concentrating on things, such as reading the newspaper or watching television: several days 8. Moving or speaking so slowly that other people could have noticed. Or the opposite - being so fidgety or restless that you have been moving around a lot more than usual: not at all 9. Thoughts that you would be better off or of hurting yourself in some way: not at all Total score: 10 Depression Screening Interpretation: Positive Source: Developed by Drs. Regino Moran, Natacha Vallejo, Ash Wolf and colleagues, with an educational jose luis from [employer]. Thrive Questionnaire Date Thrive assessed: 10/04/22 DEVON-7 AMB Questionnaire DEVON-7 Date DEVON - 7 assessed: 10/04/22 Source: Developed by Drs. Regino Moran, Natacha Vallejo, Ash Wolf and colleagues, with an educational jose luis from [employer]. Review of Systems Const Denies poor appetite and Denies weakness Eyes Denies no additional complaints ENT Reports Normal hearing present, Denies dizziness, Denies nasal congestion, Denies tinnitus and Denies sore throat Card Denies chest pain, Denies syncope, Denies rapid heart rate and Denies dyspnea Resp Denies cough and Denies dyspnea GI Denies change in stool character, Reports constipation, Denies diarrhea, Denies nausea and Denies vomiting Denies dysuria and Denies urinary frequency Neuro Reports Normal hearing present, Denies confusion, Denies dizziness, Denies syncope and Denies weakness Psych Denies confusion Physical Exam Vital Signs: Last Vital Signs Pulse 56 12/15/22 10:04 BP 138/70 12/15/22 10:04 Pulse Ox 97 12/15/22 10:04 Oxygen Delivery Method Room Air 12/15/22 10:04 BMI result Body Mass Index 31.5 Const General: No confusion Orientation/consciousness: No confusion HEENT Head: Yes normocephalic Ears: external ears normal and TM's normal bilaterally Face and sinus: Yes normal facial exam Mouth: moist mucous membranes Throat: Yes tonsils normal Eyes Conjunctivae: conjunctivae normal Pupils: Equal, round and reactive pupils present and Pupil accommodation reflex normal Direct Ophthalmoscopy: normal light reflex Neck Neck: No lymphadenopathy Thyroid: Thyroid normal Chest Chest palpation & inspection: normal inspection of the chest Resp Effort & Inspection: normal respiratory effort and no audible wheezes Auscultation: clear to auscultation bilaterally, no crackles, no wheezes and lung sounds not diminished Cardio Rate: regular rate Rhythm: regular rhythm Peripheral pulses: radial pulses present and dorsalis pedis present GI Other: guaiac negative prostate N Palpation (GI): no masses Auscultation: normal bowel sounds and normoactive bowel sounds Other: diastasis recti Male General Exam: Yes normal external exam Skin General skin exam: no rashes or lesions noted Rashes: no rashes Neuro General: No confusion Cranial nerves: Yes Equal, round and reactive pupils present and Yes Normal hearing present Cognition (Neuro): normal cognition Gait exam (Neuro): Normal gait present Motor exam (neuro): 5/5 motor strength present throughout Deep tendon reflexes (DTR's): Right brachioradialis reflex intensity grade: 2+, Left brachioradialis reflex intensity grade: 2+, Right patellar reflex intensity grade: 2+ and Left patellar reflex intensity grade: 2+ Extrem General: No edema Assessment & Plan Assessment & Plan (1) Encounter for subsequent annual wellness visit (AWV) in Medicare patient: Code(s): Z00.00 - Encounter for general adult medical examination without abnormal findings (2) Hypertension: Code(s): I10 - Essential (primary) hypertension Qualifiers: Hypertension type: essential hypertension Qualified Code(s): I10 - Essential (primary) hypertension Plan: Continue with blood pressure medication. Decrease salt intake and exercise patient is taking atenolol 100 mg once a day (3) Obesity (BMI 30-39.9): Code(s): E66.9 - Obesity, unspecified Plan: Diet and exercise (4) Osteoarthritis: Code(s): M19.90 - Unspecified osteoarthritis, unspecified site Qualifiers: Osteoarthritis location: multiple joints Osteoarthritis type: primary Qualified Code(s): M89.49 - Other hypertrophic osteoarthropathy, multiple sites Plan: Narcotic pain meds: Is being prescribed with the understanding that these m edications are potentially addictive and should be used only when absolutely necessary and must always be secured. Any remaining pills should be safely disposed off appropriately. Patient is advised that narcotics can impaired judgment and one should not drive or operate heavy machinery while taking these medications. Never share these medications with anybody and do not leave them unattended. They will not be replaced under any circumstances. (5) COPD (chronic obstructive pulmonary disease): Code(s): J44.9 - Chronic obstructive pulmonary disease, unspecified Qualifiers: COPD type: emphysema Emphysema type: panlobular Qualified Code(s): J43.1 - Panlobular emphysema Plan: Stable (6) Generalized anxiety disorder: Comment: Decline referral counseling( 11/2021) Code(s): F41.1 - Generalized anxiety disorder Plan: Continue with medication . Orders: Orders Vitamin B12 and Folate Today I10 - Essential (primary) hypertension Comprehensive Met. Panel Today I10 - Essential (primary) hypertension Lipid Panel Today E78.00 - Pure hypercholesterolemia, unspecified, I10 - Essential (primary) hypertension Free T4 (Free Thyroxine) Today I10 - Essential (primary) hypertension Thyroid Stimulating Hormone Today I10 - Essential (primary) hypertension Complete Blood Count Auto Diff Today I10 - Essential (primary) hypertension Quality Reporting (2019) Depression/Bipolar (159/160/161/177) PHQ-9: Total score: 10 Coding Level of Care Code Medicare Subsequent (G0439) Diagnoses Encounter for subsequent annual wellness visit (AWV) in Medicare patient Z00.00 Hypertension I10 Hypertension type: essential hypertension Obesity (BMI 30-39.9) E66.9 Osteoarthritis M89.49 Osteoarthritis location: multiple joints Osteoarthritis type: primary COPD (chronic obstructive pulmonary disease) J43.1 COPD type: emphysema Emphysema type: panlobular Generalized anxiety disorder F41.1
== END 2022-12-15 11:36 | disposition home or self-care (01) ==
PROVIDERS: PCP Internal Medicine; Visit Provider Internal Medicine
DX: Z00.00 Encounter for general adult medical examination without abnormal findings (principal); I10 Essential (primary) hypertension; E66.9 Obesity, unspecified; Z68.31 Body mass index [BMI] 31.0-31.9, adult; J43.1 Panlobular emphysema; M89.49 Other hypertrophic osteoarthropathy, multiple sites; F41.1 Generalized anxiety disorder
CPT/HCPCS: G0439

== ENCOUNTER 2023-03-24 09:17 | Outpatient (REF) | payer MEDICARE, SELFPAY ==
[2023-03-24 12:03] LABS: Basophils Percent Auto 0.1 % (0-2); Hematocrit 45.6 % (42.0-52.0); Hemoglobin 15.3 g/dl (14.0-18.0); Imm Gran Abs Auto 0.05 X10*3/uL (0.00-0.03); Imm Gran Pct Auto 0.4 % (0.0-0.4); Lymphocytes Absolute Auto 0.8 X10*3/uL (1.2-4.9); Lymphocytes Percent Auto 6.5 % (20-40); MANUAL DIFF FLAG SCAN; Mean Corpuscular HGB Conc 33.6 g/dl (31.0-36.0); Mean Corpuscular Hemoglobin 29.9 pg (27.0-33.0); Mean Corpuscular Volume 89.1 fL (80.0-98.0); Mean Platelet Volume 10.2 fL (9.4-12.4); Monocytes Absolute Auto 0.3 X10*3/uL (0.1-1.2); Monocytes Percent Auto 2.3 % (2-11); Neutrophils Absolute Auto 10.5 x10*3/uL (2.0-8.3); Neutrophils Percent Auto 90.7 % (45-73); Platelet Count 216 X10*3/uL (160-400); Red Blood Count 5.12 X10*6/uL (4.60-5.80); Red Cell Distribution Width 12.9 % (11.0-16.0); SCAN SMEAR FLAG 1; White Blood Count 11.5 X10*3/uL (4.8-10.8)
[2023-03-24 12:30] LABS: SLIDE REVIEW VERIFIED
[2023-03-24 12:38] LABS: Alanine Aminotransferase 10 U/L (0-40); Albumin Level 4.3 g/dL (3.5-5.0); Alkaline Phosphatase 77 U/L (39-117); Anion Gap 13 (12-20); Aspartate Amino Transferase 13 U/L (5-37); Bilirubin Total 0.7 mg/dL (0.0-1.0); Blood Urea Nitrogen 17 mg/dL (9-16); Calcium 9.9 mg/dL (8.4-10.2); Carbon Dioxide 27 mmol/L (22-29); Chloride 104 mmol/L (96-108); Cholesterol 183 mg/dL (<200); Estimated Glomerular Filt Rate > 60; Glucose Random 138 mg/dL (60-115); HDL Cholesterol 45 mg/dL (>40); LDL Cholesterol Calculated 122 mg/dL (<100); Potassium 3.9 mmol/L (3.3-5.1); Sodium 140 mmol/L (135-145); Total Protein 7.8 g/dL (6.5-8.0); Triglycerides 84 mg/dL (<150)
[2023-03-24 12:39] LABS: Thyroid Stimulating Hormone 0.94 uIU/mL (0.32-4.0)
[2023-03-24 12:58] LABS: Folate 4.8 ng/mL (> or = 4.0); Vitamin B12 794 pg/mL (200-900)
== END 2023-03-24 09:18 | disposition home or self-care (01) ==
LOC: HO.HMGCLDS 09:17
PROVIDERS: PCP Internal Medicine; Visit Provider Internal Medicine
DX: I10 Essential (primary) hypertension (principal); E78.00 Pure hypercholesterolemia, unspecified
CPT/HCPCS: 36415; 80053; 80061; 82607; 82746; 84439; 84443; 85025

== ENCOUNTER 2023-03-29 10:38 | Outpatient (AMB) | payer MEDICARE, OTHER, SELFPAY ==
[2023-03-29 10:40] VITALS: BP 150/86; PULSE 61; O2SAT 96; BMI 31.6
--- NOTE | 2023-03-29 10:40 | MHC.PC.OV ---
Vital Signs 03/29/23 10:40 03/29/23 11:13 Height 5 ft 11 in Weight 226 lb 6 oz BMI 31.6 BP 150/86 H 120/70 Blood Pressure Location Lt brachial Lt brachial Position Sitting Sitting Pulse 61 Pulse Source Pulse Oximeter Pulse Oximetry (%) 96 Oxygen Delivery Method Room Air Intake Visit Reasons: DEVON Implementation Lead Required: No Accompanied by: Self / Same As Patient Allergies No Known Allergies Allergy (Verified 03/29/23 10:40) Tobacco use date assessed: 07/01/22 Fall risk assessment: No Falls in past year Last assessed Fall Risk: 03/29/23 Dental Screening Dental Screen Date: 03/29/23 Did you have a dental visit in the last 12 months?: Yes Did you have a dental problem in the last 6 months where you did not have access to dental care?: No Was dental information given to patient?: Patient has dentist HPI DEVON HPI Details 77-year-old obese male with hypertension osteoarthritis of the knee and lower back COPD generalized anxiety disorder last seen for an annual wellness in December 2022. Patient's colonoscopy is up-to-date April 2019. last week had a shot on he L shoulder hence the increase the BS. L shoulder pain - seeing ortho. PFS Medical History (Reviewed 07/01/22 @ 10:09 by Adalberto Wilson [facility]) Anxiety Carpal tunnel syndrome COPD (chronic obstructive pulmonary disease) COVID-19 virus infection Diverticular disease Erectile dysfunction Fatty liver Hemorrhoids Hepatitis C Hypertension Obesity (BMI 30-39.9) Osteoarthritis Peripheral vascular disease Pernicious anemia Surgical History History of nasal surgery History of knee replacement procedure of left knee History of knee replacement procedure of right knee History of arthroscopy of right knee History of removal of cyst History of carpal tunnel release History of tonsillectomy History of umbilical hernia repair Family History Father No problems noted. Mother Colon cancer Hypertension Brother Colon cancer Sister Colon cancer Social History Housing: House Alcohol intake: former Patient Tobacco Use Status: Former Tobacco user Tobacco use type: Cigarette Years Smoked: quit 1995 e-Cigarette/Vaping Use: Never Used Second Hand Smoke Exposure: No service: Yes Current occupational status: retired Cognitive needs: No Hearing needs: No Vision needs: Yes Questionnaire Thrive Questionnaire Date Thrive assessed: 10/04/22 DEVON-7 AMB Questionnaire DEVON-7 Date DEVON - 7 assessed: 03/29/23 Feeling nervous, anxious, or on edge: 0 = Not at all Not being able to stop or control worryin = Not at all Worrying too much about different things: 0 = Not at all Trouble relaxin = Not at all Being so restless that it is hard to sit still: 0 = Not at all Becoming easily annoyed or irritable: 0 = Not at all Feeling afraid as if something awful might happen: 0 = Not at all Total DEVON-7 score (0-4 normal; 5-9 mild; 10-14 moderate; 15-21 severe): 0 Source: Developed by Drs. Regino Moran, Natacha Vallejo, Ash Wolf and colleagues, with an educational jose luis from [employer]. DEVON-7 Assessment Billing DEVON-7 Assessment Tool: DEVON-7 Assessment 35126 Physical exam (Primary Care) Vital Signs: Last Vital Signs Pulse 61 03/29/23 10:40 BP 150/86 H 03/29/23 10:40 Pulse Ox 96 03/29/23 10:40 Oxygen Delivery Method Room Air 03/29/23 10:40 BMI result Body Mass Index 31.6 Tobacco/Smoking Status: Tobacco use Status Tobacco use date assessed 07/01/22 03/29/23 10:45 Patient Tobacco Use Status Former Tobacco user 03/29/23 10:45 Tobacco use type Cigarette 03/29/23 10:45 e-Cigarette/Vaping Use Never Used 03/29/23 10:45 Thrive Assessment: Date of Thrive Assessment Date Thrive assessed 10/04/22 03/29/23 10:45 Const General: alert; No acute distress Eyes Conjunctivae: conjunctivae normal Resp Auscultation: clear to auscultation bilaterally Cardio Rate: regular rate Rhythm: regular rhythm GI Inspection: Yes normal to inspection Extrem General: Yes normal to inspection and No edema Results AMB Hemoglobin A1c AMB Hemoglobin A1c 5.8 % Last Edit by PAULA Rock on 03/29/23 11:13 Assessment and Plan Assessment & Plan (1) Elevated blood sugar: Code(s): R73.9 - Hyperglycemia, unspecified Plan: Decrease the amount of carbohydrate intake, pasta, bread, rice and potatoes are all sugar and that is aside from all the sweet stuff, remember that fruits are good but they are Sweet also. (2) COPD (chronic obstructive pulmonary disease): Code(s): J44.9 - Chronic obstructive pulmonary disease, unspecified Qualifiers: COPD type: emphysema Emphysema type: panlobular Qualified Code(s): J43.1 - Panlobular emphysema Plan: Stable (3) Obesity (BMI 30-39.9): Code(s): E66.9 - Obesity, unspecified Plan: Diet and exercise (4) Hypertension: Code(s): I10 - Essential (primary) hypertension Qualifiers: Hypertension type: essential hypertension Qualified Code(s): I10 - Essential (primary) hypertension Plan: Continue with blood pressure medication. Decrease salt intake and exercise presently on lisinopril 40 mg once a day (5) Osteoarthritis: Code(s): M19.90 - Unspecified osteoarthritis, unspecified site Qualifiers: Osteoarthritis location: multiple joints Osteoarthritis type: primary Qualified Code(s): M89.49 - Other hypertrophic osteoarthropathy, multiple sites Plan: Lose the weight keep active. Narcotic plan (6) Impaired fasting blood sugar: Code(s): R73.01 - Impaired fasting glucose Orders: Orders AMB Hemoglobin A1c Today R73.9 - Hyperglycemia, unspecified Coding Level of Care Code Est Pt Level 4 (44351) Diagnoses Elevated blood sugar R73.9 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 type: panlobular Obesity (BMI 30-39.9) E66.9 Essential hypertension I10 Hypertension type: essential hypertension 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 Osteoarthritis location: multiple joints Osteoarthritis type: primary Impaired fasting blood sugar R73.01 Additional Codes DEVON-7 Assessment Billing - DEVON-7 Assessment Tool: DEVON-7 Assessment [id number] ([id number])
[2023-03-29 11:13] VITALS: BP 120/70
== END 2023-03-29 11:25 | disposition home or self-care (01) ==
PROVIDERS: PCP Internal Medicine; Visit Provider Internal Medicine
DX: R73.9 Hyperglycemia, unspecified (principal); J43.1 Panlobular emphysema; E66.9 Obesity, unspecified; Z68.31 Body mass index [BMI] 31.0-31.9, adult; R73.01 Impaired fasting glucose; I10 Essential (primary) hypertension; M89.49 Other hypertrophic osteoarthropathy, multiple sites
CPT/HCPCS: 83036; 99214

== ENCOUNTER 2023-07-08 09:48 | Outpatient (AMB) | payer MEDICARE, SELFPAY ==
[2023-07-08 09:50] VITALS: BP 162/90; PULSE 55; O2SAT 97; BMI 31.2
--- NOTE | 2023-07-08 09:50 | A.OFFPC_ITS ---
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 Captain Required: No Allergies No Known Allergies Allergy (Verified 07/08/23 09:50) Medication List - Last Reconciled 07/08/23 by Janel Pitts MD atenolol 100 mg PO DAILY celecoxib 100 mg PO DAILY cholecalciferol (vitamin D3) 25 mcg PO DAILY cyanocobalamin (vitamin B-12) (Vitamin B-12) 500 mcg PO DAILY fluticasone propionate 50 mcg/actuation (Allergy Relief (fluticasone)) 2 sprays intranasal DAILY lisinopril 40 mg PO DAILY 90 days oxycodone-acetaminophen 5-325 mg (Percocet) 1 tab PO Q6H PRN sertraline 100 mg PO DAILY 90 days Tobacco use date assessed: 07/08/23 Fall risk assessment: No Falls in past year Last assessed Fall Risk: 07/08/23 Dental Screening Dental Screen Date: 07/08/23 Did you have a dental visit in the last 12 months?: Yes Did you have a dental problem in the last 6 months where you did not have access to dental care?: No Was dental information given to patient?: Patient has dentist HPI IGT, osteoarthritis HPI Details 77-year-old obese male with a history of COPD hypertension impaired glucose tolerance last seen in March 2023. Patient's colonoscopy is up-to-date April 2019. Last blood work was March 2023. L primo injection done DELMI. BP high here but does check at home [facility] Medical History (Updated 07/08/23 @ 10:03 by Janel Pitts MD) Elevated blood sugar COVID-19 virus infection Fatty liver Hemorrhoids Diverticular disease Hepatitis C COPD (chronic obstructive pulmonary disease) Peripheral vascular disease Obesity (BMI 30-39.9) Osteoarthritis Pernicious anemia Anxiety Erectile dysfunction Carpal tunnel syndrome Hypertension Surgical History History of nasal surgery History of knee replacement procedure of left knee History of knee replacement procedure of right knee History of arthroscopy of right knee History of removal of cyst History of carpal tunnel release History of tonsillectomy History of umbilical hernia repair Family History Father No problems noted. Mother Colon cancer Hypertension Brother Colon cancer Sister Colon cancer Social History Housing: House Alcohol intake: former Patient Tobacco Use Status: Former Tobacco user Tobacco use type: Cigarette Years Smoked: quit 1995 e-Cigarette/Vaping Use: Never Used Second Hand Smoke Exposure: No service: Yes Current occupational status: retired Cognitive needs: No Hearing needs: No Vision needs: Yes Questionnaire PHQ-9 Over the last 2 weeks, how often have you been bothered by any of the following problems? 1. Little interest or pleasure in doing things: not at all 2. Feeling down, depressed, or hopeless: not at all 3. Trouble falling or staying asleep, or sleeping too much: not at all 4. Feeling tired or having little energy: not at all 5. Poor appetite or overeating: not at all 6. Feeling bad about yourself - or that you are a failure or have let yourself or your family down: not at all 7. Trouble concentrating on things, such as reading the newspaper or watching television: not at all 8. Moving or speaking so slowly that other people could have noticed. Or the opposite - being so fidgety or restless that you have been moving around a lot more than usual: not at all 9. Thoughts that you would be better off or of hurting yourself in some way: not at all Total score: 0 Depression Screening Interpretation: Negative Depression Screening Done: Yes 10778 - PHQ-9 Billing: Yes Source: Developed by Drs. Regino Moran, Natacha Vallejo, Ash oWlf and colleagues, with an educational jose luis from [employer]. Thrive Questionnaire Date Thrive assessed: 07/08/23 I am a: Patient What is your living situation today?: I have a steady place to live Within the past 12 months, did the food you bought not last and you didn't have the money to get more?: Never true Within the past 12 months, did you worry whether your food would run out before you got money to buy more?: Never true Do you have trouble paying for medicines?: No Do you have trouble getting transportation to medical appointments?: No Do you have trouble paying your heating and electricity bill?: No Do you have trouble taking care of your child, family member or friend?: No Do you have trouble with day-to-day activities such as bathing, preparing meals, shopping, managing finances, etc.?: No Are you currently unemployed and looking for a job?: No Are you interested in more education?: No Please select the resources that you would like help with: None Currently or been in a relationship where the following occur: no concerns reported THRIVE Score: 0 AUDIT C Alcohol Use Questionnaire (AUDIT-C) 1. How often do you have a drink containing alcohol?: Never 2. How many drinks containing alcohol do you have on a typical day when you are drinking?: 1 or 2 (0) 3. How often do you have six or more drinks on one occasion?: Never Total Score: 0 DEVON-7 AMB Questionnaire DEVON-7 Date DEVON - 7 assessed: 07/08/23 Feeling nervous, anxious, or on edge: 0 = Not at all Not being able to stop or control worryin = Not at all Worrying too much about different things: 0 = Not at all Trouble relaxin = Not at all Being so restless that it is hard to sit still: 0 = Not at all Becoming easily annoyed or irritable: 0 = Not at all Feeling afraid as if something awful might happen: 0 = Not at all Total DEVON-7 score (0-4 normal; 5-9 mild; 10-14 moderate; 15-21 severe): 0 Source: Developed by Drs. Regino Moran, Natacha Vallejo, Ash Wolf and colleagues, with an educational jose luis from [employer]. DEVON-7 Assessment Billing DEVON-7 Assessment Tool: DEVON-7 Assessment 97604 Physical exam (Primary Care) Vital Signs: Oxygen Delivery Method Room Air 07/08/23 09:50 Tobacco/Smoking Status: Tobacco use Status Tobacco use date assessed 07/01/22 03/29/23 10:45 Patient Tobacco Use Status Former Tobacco user 03/29/23 10:45 Tobacco use type Cigarette 03/29/23 10:45 e-Cigarette/Vaping Use Never Used 03/29/23 10:45 Depression Screening Interpretation: Negative Thrive Assessment: Date of Thrive Assessment Date Thrive assessed 10/04/22 03/29/23 10:45 Currently or been in a relationship where the following occur: no concerns reported Const General: alert; No acute distress Eyes Conjunctivae: conjunctivae normal Resp Auscultation: clear to auscultation bilaterally Cardio Rate: regular rate Rhythm: regular rhythm GI Inspection: Yes normal to inspection Extrem General: Yes normal to inspection and No edema Assessment and Plan Assessment & Plan (1) Obesity (BMI 30-39.9): Code(s): E66.9 - Obesity, unspecified Plan: Diet and exercise (2) Hypertension: Code(s): I10 - Essential (primary) hypertension Qualifiers: Hypertension type: essential hypertension Qualified Code(s): I10 - Essential (primary) hypertension Plan: Continue with blood pressure medication. Decrease salt intake and exercise patient takes atenolol 100 mg once a day and lisinopril 40 mg once a day (3) COPD (chronic obstructive pulmonary disease): Code(s): J44.9 - Chronic obstructive pulmonary disease, unspecified Qualifiers: COPD type: emphysema Emphysema type: panlobular Qualified Code(s): J43.1 - Panlobular emphysema Plan: Stable and declined any prescription for inhalers (4) Generalized anxiety disorder: Comment: Decline referral counseling( 11/2021) Code(s): F41.1 - Generalized anxiety disorder Plan: Continue with sertraline. (5) Impaired fasting blood sugar: Code(s): R73.01 - Impaired fasting glucose Plan: Decrease the amount of carbohydrate intake, pasta, bread, rice and potatoes are all sugar and that is aside from all the sweet stuff, remember that fruits are good but they are Sweet also. (6) Osteoarthritis: Comment: Knees and back Code(s): M19.90 - Unspecified osteoarthritis, unspecified site Qualifiers: Osteoarthritis location: multiple joints Osteoarthritis type: primary Qualified Code(s): M89.49 - Other hypertrophic osteoarthropathy, multiple sites Plan: Narcotic pain meds: Is being prescribed with the understanding that these medications are potentially addictive and should be used only when absolutely necessary and must always be secured. Any remaining pills should be safely disposed off appropriately. Patient is advised that narcotics can impaired judgment and one should not drive or operate heavy machinery while taking these medications. Never share these medications with anybody and do not leave them unattended. They will not be replaced under any circumstances. 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
== END 2023-07-08 10:07 | disposition home or self-care (01) ==
PROVIDERS: PCP Internal Medicine; Visit Provider Internal Medicine
DX: I10 Essential (primary) hypertension (principal); J43.1 Panlobular emphysema; E66.9 Obesity, unspecified; Z68.31 Body mass index [BMI] 31.0-31.9, adult; F41.1 Generalized anxiety disorder; R73.01 Impaired fasting glucose; M89.49 Other hypertrophic osteoarthropathy, multiple sites; M25.511 Pain in right shoulder
CPT/HCPCS: 99214

== ENCOUNTER 2023-10-17 09:40 | Outpatient (AMB) | payer MEDICARE, SELFPAY ==
[2023-10-17 10:06] VITALS: BP 128/70; PULSE 81; O2SAT 98; BMI 31.2
--- NOTE | 2023-10-17 10:06 | A.OFFPC_ITS ---
Vital Signs 10/17/23 10:06 Height 5 ft 11 in Weight 224 lb BMI 31.2 BP 128/70 Blood Pressure Location Lt brachial Position Sitting Pulse 81 Pulse Source Pulse Oximeter Pulse Oximetry (%) 98 Oxygen Delivery Method Room Air Intake Visit Reasons: 3 MONTH FOLLOW UP Allergies No Known Allergies Allergy (Verified 10/17/23 10:06) Tobacco use date assessed: 07/08/23 Fall risk assessment: No Falls in past year Last assessed Fall Risk: 10/17/23 Dental Screening Dental Screen Date: 07/08/23 HPI 3 MONTH FOLLOW UP HPI Details 78-year-old obese male with hypertension COPD generalized anxiety disorder impaired glucose tolerance osteoarthritis of the knees coming in for follow-up. Patient is seen every 3 months on narcotic pain medication. Patient's last colonoscopy was done in 04/30/2019. Had tubular adenoma. 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 hx of drinking problem and suicidal ideation. presently no S I - does have flashback [facility] Medical History (Updated 10/17/23 @ 10:38 by Janel Pitts MD) Elevated blood sugar COVID-19 virus infection Fatty liver Hemorrhoids Diverticular disease Hepatitis C COPD (chronic obstructive pulmonary disease) Peripheral vascular disease Obesity (BMI 30-39.9) Osteoarthritis Pernicious anemia Anxiety Erectile dysfunction Carpal tunnel syndrome Hypertension Surgical History History of nasal surgery History of knee replacement procedure of left knee History of knee replacement procedure of right knee History of arthroscopy of right knee History of removal of cyst History of carpal tunnel release History of tonsillectomy History of umbilical hernia repair Family History Father No problems noted. Mother Colon cancer Hypertension Brother Colon cancer Sister Colon cancer Social History Housing: House Alcohol intake: former Patient Tobacco Use Status: Former Tobacco user Tobacco use type: Cigarette Years Smoked: quit 1995 e-Cigarette/Vaping Use: Never Used Second Hand Smoke Exposure: No service: Yes Current occupational status: retired Cognitive needs: No Hearing needs: No Vision needs: Yes Questionnaire PHQ-9 Over the last 2 weeks, how often have you been bothered by any of the following problems? 1. Little interest or pleasure in doing things: not at all 2. Feeling down, depressed, or hopeless: not at all 3. Trouble falling or staying asleep, or sleeping too much: not at all 4. Feeling tired or having little energy: not at all 5. Poor appetite or overeating: not at all 6. Feeling bad about yourself - or that you are a failure or have let yourself or your family down: not at all 7. Trouble concentrating on things, such as reading the newspaper or watching television: not at all 8. Moving or speaking so slowly that other people could have noticed. Or the opposite - being so fidgety or restless that you have been moving around a lot more than usual: not at all 9. Thoughts that you would be better off or of hurting yourself in some way: not at all Total score: 0 Depression Screening Interpretation: Negative Depression Screening Done: Yes 06501 - PHQ-9 Billing: Yes Source: Developed by Drs. Regino Moran, Natacha Vallejo, Ash Wolf and colleagues, with an educational jose luis from [employer]. Thrive Questionnaire Date Thrive assessed: 07/08/23 AUDIT C Alcohol Use Questionnaire (AUDIT-C) 1. How often do you have a drink containing alcohol?: Never 2. How many drinks containing alcohol do you have on a typical day when you are drinking?: 1 or 2 (0) 3. How often do you have six or more drinks on one occasion?: Never Total Score: 0 DEVON-7 AMB Questionnaire DEVON-7 Date DEVON - 7 assessed: 07/08/23 Source: Developed by Drs. Regino Moran, Natacha Vallejo, Ash Wolf and colleagues, with an educational jose luis from [employer]. Physical exam (Primary Care) Vital Signs: Last Vital Signs Pulse 81 10/17/23 10:06 BP 128/70 10/17/23 10:06 Pulse Ox 98 10/17/23 10:06 Oxygen Delivery Method Room Air 10/17/23 10:06 BMI result Body Mass Index 31.2 Tobacco/Smoking Status: Tobacco use Status Tobacco use date assessed 07/08/23 10/17/23 10:10 Patient Tobacco Use Status Former Tobacco user 10/17/23 10:10 Tobacco use type Cigarette 10/17/23 10:10 e-Cigarette/Vaping Use Never Used 10/17/23 10:10 PHQ-9: PHQ-9 Score PHQ-9: Total score 0 10/17/23 10:10 Depression Screening Interpretation: Negative Thrive Assessment: Date of Thrive Assessment Date Thrive assessed 07/08/23 10/17/23 10:10 Const General: alert; No acute distress Eyes Conjunctivae: conjunctivae normal Resp Auscultation: clear to auscultation bilaterally Cardio Rate: regular rate Rhythm: regular rhythm GI Inspection: Yes normal to inspection Extrem General: Yes normal to inspection and No edema Assessment and Plan Assessment & Plan (1) Impaired fasting blood sugar: Code(s): R73.01 - Impaired fasting glucose Plan: Decrease the amount of carbohydrate intake, pasta, bread, rice and potatoes are all sugar and that is aside from all the sweet stuff, remember that fruits are good but they are Sweet also. (2) Hypertension: Code(s): I10 - Essential (primary) hypertension Qualifiers: Hypertension type: essential hypertension Qualified Code(s): I10 - Essential (primary) hypertension Plan: Continue with blood pressure medication. Decrease salt intake and exercise on lisinopril 40 mg once a day and atenolol 100 mg once a day (3) Obesity (BMI 30-39.9): Code(s): E66.9 - Obesity, unspecified Plan: Diet and exercise (4) Peripheral vascular disease: Comment: October 2023 pedal pulses normal Code(s): I73.9 - Peripheral vascular disease, unspecified Plan: When sitting down elevate the legs, exercise, and support stockings (5) Osteoarthritis: Comment: Knees and back Code(s): M19.90 - Unspecified osteoarthritis, unspecified site Qualifiers: Osteoarthritis location: multiple joints Osteoarthritis type: primary Qualified Code(s): M89.49 - Other hypertrophic osteoarthropathy, multiple sites Plan: Narcotic pain meds: Is being prescribed with the understanding that these medications are potentially addictive and should be used only when absolutely necessary and must always be secured. Any remaining pills should be safely disposed off appropriately. Patient is advised that narcotics can impaired judgment and one should not drive or operate heavy machinery while taking these medications. Never share these medications with anybody and do not leave them unattended. They will not be replaced under any circumstances. (6) COPD (chronic obstructive pulmonary disease): Code(s): J44.9 - Chronic obstructive pulmonary disease, unspecified Qualifiers: COPD type: emphysema Emphysema type: panlobular Qualified Code(s): J43.1 - Panlobular emphysema Plan: Stable (7) Generalized anxiety disorder: Comment: Decline referral counseling( 11/2021) Code(s): F41.1 - Generalized anxiety disorder Plan: Continue with present therapy. PAtient was advised to get counselling. and will reach out to his list. 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
== END 2023-10-17 10:43 | disposition home or self-care (01) ==
PROVIDERS: PCP Internal Medicine; Visit Provider Internal Medicine
DX: R73.01 Impaired fasting glucose (principal); I10 Essential (primary) hypertension; I73.9 Peripheral vascular disease, unspecified; M89.49 Other hypertrophic osteoarthropathy, multiple sites; F41.1 Generalized anxiety disorder
CPT/HCPCS: 99214

== ENCOUNTER 2023-12-20 10:09 | Outpatient (AMB) | payer MEDICARE, SELFPAY ==
[2023-12-20 10:11] VITALS: BP 132/72; PULSE 71; O2SAT 98; BMI 31.4
--- NOTE | 2023-12-20 10:11 | A.OFFPC_ITS ---
Vital Signs 12/20/23 10:11 Height 5 ft 11 in Weight 225 lb BMI 31.4 BP 132/72 Blood Pressure Location Lt brachial Position Sitting Pulse 71 Pulse Source Pulse Oximeter Pulse Oximetry (%) 98 Oxygen Delivery Method Room Air Intake Visit Reasons: Annual Exam Allergies No Known Allergies Allergy (Verified 12/20/23 10:12) Medication List - Last Reconciled 12/20/23 by Janel Pitts MD atenolol 100 mg PO DAILY celecoxib 100 mg PO DAILY cholecalciferol (vitamin D3) 25 mcg PO DAILY cyanocobalamin (vitamin B-12) (Vitamin B-12) 500 mcg PO DAILY fluticasone propionate 50 mcg/actuation (Allergy Relief (fluticasone)) 2 sprays intranasal DAILY lisinopril 40 mg PO DAILY 90 days oxycodone-acetaminophen 5-325 mg (Percocet) 1 tab PO Q6H PRN sertraline 100 mg PO DAILY 90 days Tobacco use date assessed: 07/08/23 Fall risk assessment: No Falls in past year Last assessed Fall Risk: 12/20/23 Dental Screening Dental Screen Date: 07/08/23 HPI Annual Exam HPI Details 78-year-old obese male with impaired glu cose tolerance COPD hypertension peripheral vascular disease , osteoarthritis on narcotic pain medication and generalized anxiety disorder coming in for physical exam last seen in October 2023. Patient's colonoscopy is up-to-date had it done in April 2019 having tubular adenoma.. decrease in urinary caliber. [facility] Medical History (Updated 12/20/23 @ 10:33 by Janel Pitts MD) Elevated blood sugar COVID-19 virus infection Fatty liver Hemorrhoids Diverticular disease Hepatitis C COPD (chronic obstructive pulmonary disease) Peripheral vascular disease Obesity (BMI 30-39.9) Osteoarthritis Pernicious anemia Anxiety Erectile dysfunction Carpal tunnel syndrome Hypertension Surgical History History of nasal surgery History of knee replacement procedure of left knee History of knee replacement procedure of right knee History of arthroscopy of right knee History of removal of cyst History of carpal tunnel release History of tonsillectomy History of umbilical hernia repair Family History Father No problems noted. Mother Colon cancer Hypertension Brother Colon cancer Sister Colon cancer Social History Housing: House Alcohol intake: former Patient Tobacco Use Status: Former Tobacco user Tobacco use type: Cigarette Years Smoked: quit 1995 e-Cigarette/Vaping Use: Never Used Second Hand Smoke Exposure: No service: Yes Current occupational status: retired Cognitive needs: No Hearing needs: No Vision needs: Yes Questionnaire PHQ-9 Over the last 2 weeks, how often have you been bothered by any of the following problems? 1. Little interest or pleasure in doing things: several days 2. Feeling down, depressed, or hopeless: not at all 3. Trouble falling or staying asleep, or sleeping too much: not at all 4. Feeling tired or having little energy: not at all 5. Poor appetite or overeating: not at all 6. Feeling bad about yourself - or that you are a failure or have let yourself or your family down: not at all 7. Trouble concentrating on things, such as reading the newspaper or watching television: not at all 8. Moving or speaking so slowly that other people could have noticed. Or the opposite - being so fidgety or restless that you have been moving around a lot more than usual: not at all 9. Thoughts that you would be better off or of hurting yourself in some way: not at all Total score: 1 Depression Screening Interpretation: Negative Depression Screening Done: Yes 54284 - PHQ-9 Billing: Yes Source: Developed by Drs. Regino Moran, Ash Monteiro and colleagues, with an educational jose luis from [email or web address]. Thrive Questionnaire Date Thrive assessed: 07/08/23 AUDIT C Alcohol Use Questionnaire (AUDIT-C) 1. How often do you have a drink containing alcohol?: Never 2. How many drinks containing alcohol do you have on a typical day when you are drinking?: 1 or 2 (0) 3. How often do you have six or more drinks on one occasion?: Never Total Score: 0 DEOVN-7 AMB Questionnaire DEVON-7 Date DEVON - 7 assessed: 07/08/23 Source: Developed by Drs. Regino Moran, Ash Monteiro and colleagues, with an educational jose luis from [email or web address]. Review of Systems Const Denies poor appetite and Denies weakness Eyes Denies no additional complaints ENT Reports Normal hearing present, Denies dizziness, Denies nasal congestion, Denies tinnitus and Denies sore throat Card Denies chest pain, Denies syncope, Denies rapid heart rate and Denies dyspnea Resp Denies cough and Denies dyspnea GI Denies change in stool character, Reports constipation, Denies diarrhea, Denies nausea and Denies vomiting Denies dysuria and Denies urinary frequency Neuro Reports Normal hearing present, Denies confusion, Denies dizziness, Denies syncope and Denies weakness Psych Denies confusion Physical exam (Primary Care) Vital Signs: Last Vital Signs Pulse 71 12/20/23 10:11 BP 132/72 12/20/23 10:11 Pulse Ox 98 12/20/23 10:11 Oxygen Delivery Method Room Air 12/20/23 10:11 BMI result Body Mass Index 31.4 Tobacco/Smoking Status: Tobacco use Status Tobacco use date assessed 07/08/23 12/20/23 10:15 Patient Tobacco Use Status Former Tobacco user 12/20/23 10:15 Tobacco use type Cigarette 12/20/23 10:15 e-Cigarette/Vaping Use Never Used 12/20/23 10:15 PHQ-9: PHQ-9 Score PHQ-9: Total score 1 12/20/23 10:18 Depression Screening Interpretation: Negative Thrive Assessment: Date of Thrive Assessment Date Thrive assessed 07/08/23 12/20/23 10:15 Const General: No confusion Orientation/consciousness: No confusion HENMT Other: impacted cerumen bilateral Head: Yes normocephalic Ears: external ears normal Face and sinus: Yes normal facial exam Mouth: moist mucous membranes Throat: Yes tonsils normal Eyes Conjunctivae: conjunctivae normal Pupils: Equal, round and reactive pupils present and Pupil accommodation reflex normal Direct Ophthalmoscopy: normal light reflex Neck Neck: No lymphadenopathy Thyroid: Thyroid normal Chest Chest palpation & inspection: normal inspection of the chest Resp Effort & Inspection: normal respiratory effort and no audible wheezes Auscultation: clear to auscultation bilaterally, no crackles, no wheezes and lung sounds not diminished Cardio Rate: regular rate Rhythm: regular rhythm Peripheral pulses: radial pulses present and dorsalis pedis present GI Other: guiaic negative prostate mild enlarged Palpation (GI): no masses Auscultation: normal bowel sounds and normoactive bowel sounds Male General Exam: Yes normal external exam Skin General skin exam: no rashes or lesions noted Rashes: no rashes Neuro General: No confusion Cranial nerves: Yes Equal, round and reactive pupils present and Yes Normal hearing present Cognition (Neuro): normal cognition Gait exam (Neuro): Normal gait present Motor exam (neuro): 5/5 motor strength present throughout Deep tendon reflexes (DTR's): Right brachioradialis reflex intensity grade: 2+, Left brachioradialis reflex intensity grade: 2+, Right patellar reflex intensity grade: 2+ and Left patellar reflex intensity grade: 2+ Extrem General: No edema Assessment and Plan Assessment & Plan (1) Annual physical exam: Code(s): Z00.00 - Encounter for general adult medical examination without abnormal findings Plan: Patient is advised to eat healthy, keep well hydrated, keep active and have adequate sleep. (2) Impaired fasting blood sugar: Code(s): R73.01 - Impaired fasting glucose Plan: Decrease the amount of carbohydrate intake, pasta, bread, rice and potatoes are all sugar and that is aside from all the sweet stuff, remember that fruits are good but they are Sweet also. (3) Osteoarthritis: Comment: Knees and back Code(s): M19.90 - Unspecified osteoarthritis, unspecified site Qualifiers: Osteoarthritis location: multiple joints Osteoarthritis type: primary Qualified Code(s): M89.49 - Other hypertrophic osteoarthropathy, multiple sites Plan: Narcotic pain meds: Is being prescribed with the understanding that these medications are potentially addictive and should be used only when absolutely necessary and must always be secured. Any remaining pills should be safely disposed off appropriately. Patient is advised that narcotics can impaired judgment and one should not drive or operate heavy machinery while taking these medications. Never share these medications with anybody and do not leave them unattended. They will not be replaced under any circumstances. And on Celebrex (4) Hypertension: Code(s): I10 - Essential (primary) hypertension Qualifiers: Hypertension type: essential hypertension Qualified Code(s): I10 - Essential (primary) hypertension Plan: Continue with blood pressure medication. Decrease salt intake and exercise takes lisinopril 40 mg once a day and atenolol 100 mg once a day (5) Obesity (BMI 30-39.9): Code(s): E66.9 - Obesity, unspecified Plan: Diet and exercise (6) COPD (chronic obstructive pulmonary disease): Code(s): J44.9 - Chronic obstructive pulmonary disease, unspecified Qualifiers: COPD type: emphysema Emphysema type: panlobular Qualified Code(s): J43.1 - Panlobular emphysema Plan: Stable (7) Generalized anxiety disorder: Comment: Decline referral counseling( 11/2021) Code(s): F41.1 - Generalized anxiety disorder Plan: Continue with present medication. Declined counseling. (8) Impacted cerumen of both ears: Code(s): H61.23 - Impacted cerumen, bilateral Plan: ear flushing prn Orders: Orders Complete Blood Count Auto Diff Today I10 - Essential (primary) hypertension Free T4 (Free Thyroxine) Today I10 - Essential (primary) hypertension Vitamin B12 and Folate Today I10 - Essential (primary) hypertension Hemoglobin A1c Today I10 - Essential (primary) hypertension Comprehensive Met. 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
== END 2023-12-20 10:56 | disposition home or self-care (01) ==
PROVIDERS: PCP Internal Medicine; Visit Provider Internal Medicine
DX: Z00.00 Encounter for general adult medical examination without abnormal findings (principal); R73.01 Impaired fasting glucose; M89.49 Other hypertrophic osteoarthropathy, multiple sites; I10 Essential (primary) hypertension; E66.9 Obesity, unspecified; F41.1 Generalized anxiety disorder; H61.23 Impacted cerumen, bilateral
CPT/HCPCS: 99397

== ENCOUNTER 2024-03-07 08:36 | Outpatient (REF) | payer MEDICARE, SELFPAY ==
[2024-03-07 10:09] LABS: MANUAL DIFF FLAG NO
[2024-03-07 10:11] LABS: Basophils Absolute Auto 0.1 X10*3/uL (0.0-0.2); Basophils Percent Auto 0.8 % (0-2); Eosinophils Absolute Auto 0.1 X10*3/uL (0.0-0.4); Hematocrit 44.9 % (42.0-52.0); Hemoglobin 15.3 g/dl (14.0-18.0); Imm Gran Abs Auto 0.02 X10*3/uL (0.00-0.03); Imm Gran Pct Auto 0.3 % (0.0-0.4); Lymphocytes Absolute Auto 1.3 X10*3/uL (1.2-4.9); Lymphocytes Percent Auto 21.4 % (20-40); Mean Corpuscular HGB Conc 34.1 g/dl (31.0-36.0); Mean Corpuscular Hemoglobin 29.9 pg (27.0-33.0); Mean Corpuscular Volume 87.7 fL (80.0-98.0); Mean Platelet Volume 9.6 fL (9.4-12.4); Monocytes Absolute Auto 0.5 X10*3/uL (0.1-1.2); Monocytes Percent Auto 8.1 % (2-11); Neutrophils Absolute Auto 4.1 x10*3/uL (2.0-8.3); Neutrophils Percent Auto 67.4 % (45-73); Platelet Count 191 X10*3/uL (160-400); Red Blood Count 5.12 X10*6/uL (4.60-5.80); Red Cell Distribution Width 12.9 % (11.0-16.0); White Blood Count 6.1 X10*3/uL (4.8-10.8)
[2024-03-07 10:12] LABS: Estimated Average Glucose 111 mg/dL; Hemoglobin A1C 136.4721 umol/L; Hemoglobin A1c % 5.5 % (<6.0)
[2024-03-07 10:37] LABS: Alanine Aminotransferase 18 U/L (0-40); Albumin Level 4.2 g/dL (3.5-5.0); Anion Gap 14 (12-20); Aspartate Amino Transferase 30 U/L (5-37); Bilirubin Total 0.9 mg/dL (0.0-1.0); Blood Urea Nitrogen 17 mg/dL (9-16); Calcium 9.5 mg/dL (8.4-10.2); Carbon Dioxide 28 mmol/L (22-29); Chloride 108 mmol/L (96-108); Cholesterol 165 mg/dL (<200); Estimated Glomerular Filt Rate > 60; Glucose Random 101 mg/dL (60-115); HDL Cholesterol 38 mg/dL (>40); LDL Cholesterol Calculated 93 mg/dL (<100); Potassium 4.3 mmol/L (3.3-5.1); Sodium 146 mmol/L (135-145); Total Protein 7.4 g/dL (6.5-8.0); Triglycerides 172 mg/dL (<150)
[2024-03-07 10:51] LABS: Free T4 (Free Thyroxine) 0.92 ng/dL (0.71-1.85); Thyroid Stimulating Hormone 1.66 uIU/mL (0.32-4.0)
[2024-03-07 10:52] LABS: Folate 12.7 ng/mL (> or = 4.0); Vitamin B12 720 pg/mL (200-900)
[2024-03-07 10:57] LABS: Alkaline Phosphatase 85 U/L (39-117)
== END 2024-03-07 08:37 | disposition home or self-care (01) ==
LOC: HO.HMGCLDS 08:36
PROVIDERS: PCP Internal Medicine; Visit Provider Internal Medicine
DX: I10 Essential (primary) hypertension (principal); Z13.1 Encounter for screening for diabetes mellitus; E78.00 Pure hypercholesterolemia, unspecified
CPT/HCPCS: 36415; 80053; 80061; 82607; 82746; 83036; 84439; 84443; 85025

== ENCOUNTER 2024-03-12 09:45 | Outpatient (AMB) | payer MEDICARE, SELFPAY ==
[2024-03-12 09:49] VITALS: BP 156/84; PULSE 52; O2SAT 96; BMI 31.8
--- NOTE | 2024-03-12 09:49 | A.OFFPC_ITS ---
Vital Signs 03/12/24 09:49 03/12/24 10:00 Height 5 ft 11 in Weight 228 lb BMI 31.8 BP 156/84 H 150/80 H Blood Pressure Location Lt brachial Lt brachial Position Sitting Sitting Pulse 52 Pulse Source Pulse Oximeter Pulse Oximetry (%) 96 Oxygen Delivery Method Room Air Intake Visit Reasons: 3 Month F/U Intake Note: Patient here for a 3 month follow up [employer] Required: No Accompanied by: Self / Same As Patient Allergies No Known Allergies Allergy (Verified 03/12/24 09:55) Tobacco use date assessed: 07/08/23 Fall risk assessment: No Falls in past year Last assessed Fall Risk: 03/12/24 Dental Screening Dental Screen Date: 03/12/24 Did you have a dental visit in the last 12 months?: No Did you have a dental problem in the last 6 months where you did not have access to dental care?: No Was dental information given to patient?: Patient has dentist HPI 3 Month F/U HPI Details 78-year-old obese male with impaired glu cose tolerance hypertension COPD generalized anxiety disorder and osteoarthritis of lumbar and knee area. Patient is here for follow-up last seen in 12/30/2023. BP at home and is good and kn ows gained weight [facility] Medical History (Updated 12/20/23 @ 10:33 by Janel Pitts MD) Elevated blood sugar COVID-19 virus infection Fatty liver Hemorrhoids Diverticular disease Hepatitis C COPD (chronic obstructive pulmonary disease) Peripheral vascular disease Obesity (BMI 30-39.9) Osteoarthritis Pernicious anemia Anxiety Erectile dysfunction Carpal tunnel syndrome Hypertension Surgical History History of nasal surgery History of knee replacement procedure of left knee History of knee replacement procedure of right knee History of arthroscopy of right knee History of removal of cyst History of carpal tunnel release History of tonsillectomy History of umbilical hernia repair Family History Father No problems noted. Mother Colon cancer Hypertension Brother Colon cancer Sister Colon cancer Social History Housing: House Alcohol intake: former Patient Tobacco Use Status: Former Tobacco user Tobacco use type: Cigarette Years Smoked: quit 1995 e-Cigarette/Vaping Use: Never Used Second Hand Smoke Exposure: No service: Yes Current occupational status: retired Cognitive needs: No Hearing needs: No Vision needs: Yes Questionnaire PHQ-9 Over the last 2 weeks, how often have you been bothered by any of the following problems? 1. Little interest or pleasure in doing things: several days 2. Feeling down, depressed, or hopeless: not at all 3. Trouble falling or staying asleep, or sleeping too much: not at all 4. Feeling tired or having little energy: not at all 5. Poor appetite or overeating: not at all 6. Feeling bad about yourself - or that you are a failure or have let yourself or your family down: not at all 7. Trouble concentrating on things, such as reading the newspaper or watching television: not at all 8. Moving or speaking so slowly that other people could have noticed. Or the opposite - being so fidgety or restless that you have been moving around a lot more than usual: not at all 9. Thoughts that you would be better off or of hurting yourself in some way: not at all Total score: 1 Depression Screening Interpretation: Negative Depression Screening Done: Yes 79070 - PHQ-9 Billing: Yes Source: Developed by Drs. Regino Moran, Ash Monteiro and colleagues, with an educational jose luis from [employer]. Thrive Questionnaire Date Thrive assessed: 07/08/23 DEVON-7 AMB Questionnaire DEVON-7 Date DEVON - 7 assessed: 07/08/23 Source: Developed by Natacha Smith Kurt Kroenke and colleagues, with an educational jose luis from [employer]. Physical exam (Primary Care) Vital Signs: Last Vital Signs Pulse 52 03/12/24 09:49 BP 156/84 H 03/12/24 09:49 Pulse Ox 96 03/12/24 09:49 Oxygen Delivery Method Room Air 03/12/24 09:49 BMI result Body Mass Index 31.8 Tobacco/Smoking Status: Tobacco use Status Tobacco use date assessed 07/08/23 03/12/24 09:56 Patient Tobacco Use Status Former Tobacco user 03/12/24 09:56 Tobacco use type Cigarette 03/12/24 09:56 e-Cigarette/Vaping Use Never Used 03/12/24 09:56 PHQ-9: PHQ-9 Score PHQ-9: Total score 1 03/12/24 09:56 Depression Screening Interpretation: Negative Thrive Assessment: Date of Thrive Assessment Date Thrive assessed 07/08/23 03/12/24 09:56 Const General: alert; No acute distress Eyes Conjunctivae: conjunctivae normal Resp Auscultation: clear to auscultation bilaterally Cardio Rate: regular rate Rhythm: regular rhythm GI Inspection: Yes normal to inspection Extrem General: Yes normal to inspection and No edema Coding Level of Care Code Est Pt Level 4 (97519) Complex EM visit Add On G2211 Diagnoses Impaired fasting blood sugar R73.01 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 type: panlobular Obesity (BMI 30-39.9) E66.9 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 Osteoarthritis location: multiple joints Osteoarthritis type: primary Essential hypertension I10 Hypertension type: essential hypertension Generalized anxiety disorder F41.1 Additional Codes PHQ-9 - 99324 - PHQ-9 Billing: Yes ([id number]) Assessment & Plan Assessment & Plan (1) Impaired fasting blood sugar: Code(s): R73.01 - Impaired fasting glucose Category: Medical Plan: Decrease the amount of carbohydrate intake, pasta, bread, rice and potatoes are all sugar and that is aside from all the sweet stuff, remember that fruits are good but they are Sweet also. Continuing to monitor (2) COPD (chronic obstructive pulmonary disease): Code(s): J44.9 - Chronic obstructive pulmonary disease, unspecified Category: Medical Qualifiers: COPD type: emphysema Emphysema type: panlobular Qualified Code(s): J43.1 - Panlobular emphysema Plan: Stable no problems of shortness of breath (3) Obesity (BMI 30-39.9): Code(s): E66.9 - Obesity, unspecified Category: Medical Plan: Diet and exercise (4) Osteoarthritis: Comment: Knees and back Code(s): M19.90 - Unspecified osteoarthritis, unspecified site Category: Medical Qualifiers: Osteoarthritis location: multiple joints Osteoarthritis type: primary Qualified Code(s): M89.49 - Other hypertrophic osteoarthropathy, multiple sites Plan: Narcotic pain meds: Is being prescribed with the understanding that these medications are potentially addictive and should be used only when absolutely necessary and must always be secured. Any remaining pills should be safely disposed off appropriately. Patient is advised that narcotics can impaired judgment and one should not drive or operate heavy machinery while taking these medications. Never share these medications with anybody and do not leave them unattended. They will not be replaced under any circumstances. (5) Hypertension: Code(s): I10 - Essential (primary) hypertension Category: Medical Qualifiers: Hypertension type: essential hypertension Qualified Code(s): I10 - Essential (primary) hypertension Plan: Continue with blood pressure medication. Decrease salt intake and exercise presently on lisinopril 40 mg once a day atenolol 100 mg once a day (6) Generalized anxiety disorder: Comment: Decline referral counseling( 11/2021) Code(s): F41.1 - Generalized anxiety disorder Category: Medical Plan: Continue with sertraline 100 mg once a day Medications: Refilled oxycodone-acetaminophen 5-325 mg (Percocet) 1 tab PO Q6H PRN 112 tabs 0RF pain
[2024-03-12 10:00] VITALS: BP 150/80
== END 2024-03-12 10:08 | disposition home or self-care (01) ==
PROVIDERS: PCP Internal Medicine; Visit Provider Internal Medicine
DX: R73.01 Impaired fasting glucose (principal); J43.1 Panlobular emphysema; Z68.31 Body mass index [BMI] 31.0-31.9, adult; E66.9 Obesity, unspecified; M89.49 Other hypertrophic osteoarthropathy, multiple sites; I10 Essential (primary) hypertension; F41.1 Generalized anxiety disorder

== ENCOUNTER → 2024-03-12 09:45 | Outpatient (BNVA) | payer MEDICARE, SELFPAY | PROVIDERS: PCP Internal Medicine; Visit Provider Internal Medicine | DX: R73.01 Impaired fasting glucose (principal); J43.1 Panlobular emphysema; E66.9 Obesity, unspecified; M89.49 Other hypertrophic osteoarthropathy, multiple sites; I10 Essential (primary) hypertension; F41.1 Generalized anxiety disorder | CPT/HCPCS: 96127; 99212 ==

== ENCOUNTER 2024-06-28 10:50 | Outpatient (AMB) | payer MEDICARE, SELFPAY ==
[2024-06-28 11:08] VITALS: BP 138/68; PULSE 56; O2SAT 96; BMI 31.8
--- NOTE | 2024-06-28 11:08 | MHC.PC.OV ---
Vital Signs 06/28/24 11:08 Height 5 ft 11 in Weight 228 lb BMI 31.8 BP 138/68 Blood Pressure Location Lt brachial Position Sitting Pulse 56 Pulse Source Pulse Oximeter Pulse Oximetry (%) 96 Oxygen Delivery Method Room Air Intake Visit Reasons: 3 MONTH F/U Allergies No Known Allergies Allergy (Verified 06/28/24 11:09) Tobacco use date assessed: 06/28/24 Fall risk assessment: No Falls in past year Last assessed Fall Risk: 06/28/24 Dental Screening Dental Screen Date: 06/28/24 Did you have a dental visit in the last 12 months?: Yes Did you have a dental problem in the last 6 months where you did not have access to dental care?: No Was dental information given to patient?: Patient has dentist [facility] Medical History (Updated 06/28/24 @ 11:40 by Janel Pitts MD) Elevated blood sugar COVID-19 virus infection Fatty liver Hemorrhoids Diverticular disease Hepatitis C COPD (chronic obstructive pulmonary disease) Peripheral vascular disease Obesity (BMI 30-39.9) Osteoarthritis Pernicious anemia Anxiety Erectile dysfunction Carpal tunnel syndrome Hypertension Surgical History History of nasal surgery History of knee replacement procedure of left knee History of knee replacement procedure of right knee History of arthroscopy of right knee History of removal of cyst History of carpal tunnel release History of tonsillectomy History of umbilical hernia repair Family History Father No problems noted. Mother Colon cancer Hypertension Brother Colon cancer Sister Colon cancer Social History Housing: House Alcohol intake: former Patient Tobacco Use Status: Former Tobacco user Tobacco use type: Cigarette Years Smoked: quit 1995 e-Cigarette/Vaping Use: Never Used Second Hand Smoke Exposure: No service: Yes Current occupational status: retired Cognitive needs: No Hearing needs: No Vision needs: Yes Questionnaire PHQ-9 Over the last 2 weeks, how often have you been bothered by any of the following problems? 1. Little interest or pleasure in doing things: several days 2. Feeling down, depressed, or hopeless: not at all 3. Trouble falling or staying asleep, or sleeping too much: not at all 4. Feeling tired or having little energy: not at all 5. Poor appetite or overeating: not at all 6. Feeling bad about yourself - or that you are a failure or have let yourself or your family down: not at all 7. Trouble concentrating on things, such as reading the newspaper or watching television: not at all 8. Moving or speaking so slowly that other people could have noticed. Or the opposite - being so fidgety or restless that you have been moving around a lot more than usual: not at all 9. Thoughts that you would be better off or of hurting yourself in some way: not at all Total score: 1 Depression Screening Interpretation: Negative Depression Screening Done: Yes 62112 - PHQ-9 Billing: Yes Source: Developed by Drs. Regino Moran, Natacha Vallejo, Ash Wolf and colleagues, with an educational jose luis from [employer]. Thrive Questionnaire Date Thrive assessed: 06/28/24 I am a: Patient What is your living situation today?: I have a steady place to live Within the past 12 months, did the food you bought not last and you didn't have the money to get more?: Never true Within the past 12 months, did you worry whether your food would run out before you got money to buy more?: Never true Do you have trouble paying for medicines?: No Do you have trouble getting transportation to medical appointments?: No Do you have trouble paying your heating and electricity bill?: No Do you have trouble taking care of your child, family member or friend?: No Do you have trouble with day-to-day activities such as bathing, preparing meals, shopping, managing finances, etc.?: No Are you currently unemployed and looking for a job?: No Are you interested in more education?: No Currently or been in a relationship where the following occur: No concerns reported THRIVE Score: 0 AUDIT C Alcohol Use Questionnaire (AUDIT-C) 1. How often do you have a drink containing alcohol?: Never 2. How many drinks containing alcohol do you have on a typical day when you are drinking?: 1 or 2 (0) 3. How often do you have six or more drinks on one occasion?: Never Total Score: 0 DEVON-7 AMB Questionnaire DEVON-7 Date DEVON - 7 assessed: 06/28/24 Feeling nervous, anxious, or on edge: 0 = Not at all Not being able to stop or control worryin = Not at all Worrying too much about different things: 0 = Not at all Trouble relaxin = Not at all Being so restless that it is hard to sit still: 0 = Not at all Becoming easily annoyed or irritable: 0 = Not at all Feeling afraid as if something awful might happen: 0 = Not at all Total DEVON-7 score (0-4 normal; 5-9 mild; 10-14 moderate; 15-21 severe): 0 Source: Developed by Drs. Regino Moran, Natacha Vallejo, Ash Wolf and colleagues, with an educational jose luis from [employer]. Physical exam (Primary Care) Vital Signs: Last Vital Signs Pulse 56 06/28/24 11:08 BP 138/68 06/28/24 11:08 Pulse Ox 96 06/28/24 11:08 Oxygen Delivery Method Room Air 06/28/24 11:08 BMI result Body Mass Index 31.8 Tobacco/Smoking Status: Tobacco use Status Tobacco use date assessed 06/28/24 06/28/24 11:12 Patient Tobacco Use Status Former Tobacco user 06/28/24 11:12 Tobacco use type Cigarette 06/28/24 11:12 e-Cigarette/Vaping Use Never Used 06/28/24 11:12 PHQ-9: PHQ-9 Score PHQ-9: Total score 1 06/28/24 11:39 Depression Screening Interpretation: Negative Thrive Assessment: Date of Thrive Assessment Date Thrive assessed 06/28/24 06/28/24 11:12 Currently or been in a relationship where the following occur: No concerns reported Const General: alert; No acute distress Eyes Conjunctivae: conjunctivae normal Resp Auscultation: clear to auscultation bilaterally Cardio Rate: regular rate Rhythm: regular rhythm GI Inspection: Yes normal to inspection Extrem General: Yes normal to inspection and No edema Coding Level of Care Code Est Pt Level 4 (62743) Complex EM visit Add On G2211 Diagnoses Impaired fasting blood sugar R73.01 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 type: panlobular Obesity (BMI 30-39.9) E66.9 Essential hypertension I10 Hypertension type: essential hypertension Generalized anxiety disorder F41.1 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 Osteoarthritis location: multiple joints Osteoarthritis type: primary Tubular adenoma of colon D12.6 Impacted cerumen of both ears H61.23 Additional Codes PHQ-9 - 75900 - PHQ-9 Billing: Yes ([id number]) Assessment & Plan Assessment & Plan (1) Impaired fasting blood sugar: Code(s): R73.01 - Impaired fasting glucose Category: Medical Plan: Decrease the amount of carbohydrate intake, pasta, bread, rice and potatoes are all sugar and that is aside from all the sweet stuff, remember that fruits are good but they are Sweet also. Hemoglobin A1c in February is better at 5.5 (2) COPD (chronic obstructive pulmonary disease): Code(s): J44.9 - Chronic obstructive pulmonary disease, unspecified Category: Medical Qualifiers: COPD type: emphysema Emphysema type: panlobular Qualified Code(s): J43.1 - Panlobular emphysema Plan: Stable has not been using any inhaler (3) Obesity (BMI 30-39.9): Code(s): E66.9 - Obesity, unspecified Category: Medical Plan: Diet and exercise (4) Hypertension: Code(s): I10 - Essential (primary) hypertension Category: Medical Qualifiers: Hypertension type: essential hypertension Qualified Code(s): I10 - Essential (primary) hypertension Plan: Continue with blood pressure medication. Decrease salt intake and exercise on lisinopril 40 mg once a day atenolol 100 mg once a day continue (5) Generalized anxiety disorder: Comment: Decline referral counseling( 11/2021) Code(s): F41.1 - Generalized anxiety disorder Category: Medical Plan: With present medication continue (6) Osteoarthritis: Comment: Knees and back Code(s): M19.90 - Unspecified osteoarthritis, unspecified site Category: Medical Qualifiers: Osteoarthritis location: multiple joints Osteoarthritis type: primary Qualified Code(s): M89.49 - Other hypertrophic osteoarthropathy, multiple sites Plan: Narcotic pain meds: Is being prescribed with the understanding that these medications are potentially addictive and should be used only when absolutely necessary and must always be secured. Any remaining pills should be safely disposed off appropriately. Patient is advised that narcotics can impaired judgment and one should not drive or operate heavy machinery while taking these medications. Never share these medications with anybody and do not leave them unattended. They will not be replaced under any circumstances. (7) Tubular adenoma of colon: Code(s): D12.6 - Benign neoplasm of colon, unspecified Category: Medical (8) Impacted cerumen of both ears: Code(s): H61.23 - Impacted cerumen, bilateral Category: Medical Plan: will try to do cleaning by himself but if not better- will schedule for cleaning. Plan History of Present Illness The patient is a 78-year-old male presenting with a follow-up for chronic conditions. During the visit, he discussed ongoing knee osteoarthritis resulting in chronic pain, currently being managed with prescribed narcotic pain medications. His recent physical activity level has been low due to the winter season, although it is expected to improve with outdoor activities as the weather changes. The patient occasionally consumes chocolate raisins against prior dietary recommendations and has elevated weight levels with no active weight management measures currently in place. Additionally, the patient has been experiencing hearing difficulties related to significant earwax buildup that affects communication. In previous consultations, the patient was noted to have hypertension, managed with lisinopril and atenolol, and COPD, which no longer necessitates regular inhaler use. His blood work, completed in February 2024, is largely normal, with a hemoglobin A1c at 5.5%, reflecting improved diabetes management compared to past levels. The patient previously underwent a colonoscopy in 2019, reports stable eye conditions, with current issues in night driving but no existing cataracts as per recent examinations in a [place] [facility] facility. Health Maintenance - Blood work performed in February 2024 showed normal results with a hemoglobin A1c of 5.5%, indicating stable diabetes management. - Colonoscopy last performed in 2019. - Weight remains elevated; discussion on the importance of diet and exercise for weight management. - Eye examination discussed, with noted difficulty in night driving but no reported cataracts. Social History - Exercises primarily through outdoor activities, which increase in frequency with warmer seasons. - Reports occasional consumption of chocolate raisins as part of diet. - Stability in weight, no current structured weight management efforts. - Issues with night driving have been identified regarding vision. Review of Systems - Ears: Reports significant earwax buildup affecting hearing. - Eyes: Reports difficulty in night driving. - Musculoskeletal: Reports chronic knee pain due to osteoarthritis. Physical Exam - Ears- Noted significant earwax accumulation obstructing hearing. Results - Labs (February 2024): Hemoglobin A1c 5.5%, better controlled than previously recorded at 5.8%; normal blood count; hypernatremia; normal renal and liver function; LDL at 93; normal B12, folic acid, and thyroid function. Plan 1. 5%. The patient will continue with current pain management for knee osteoarthritis and be encouraged to increase physical activity smartly. Earwax accumulation will be addressed with home cleaning; professional intervention is available if necessary. Vision concerns regarding night driving will warrant further evaluation from an eye care provider. Lifestyle modifications for weight and dietary choices, specifically chocolate raisin consumption, were discussed.: Patient was informed and verbally consented to the use of an ambient scribe for clinic note documentation during this visit. Discussion Notes During the visit, I explained the importance of maintaining current management for hypertension and diabetes given the recent normal results. I discussed potential interventions for knee osteoarthritis, emphasizing moderation in physical activity alongside continued pain medication. The patient was advised on techniques for addressing earwax obstruction at home, with further intervention if needed. We discussed vision difficulties related to night driving, reiterating the need for follow-up with the eye aged or disabled care worker. I shared lifestyle recommendations, especially around weight management and dietary choices, underlining their impact on overall health outcomes. The patient expressed understanding and agreement with the outlined management plan, and I advised follow-up appointments as necessary to monitor these conditions. Patient Instructions - Continue taking lisinopril and atenolol as prescribed for high blood pressure. - Maintain regular physical activity to aid in the management of knee osteoarthritis and weight control. - Use ear cleaning solutions at home to manage earwax buildup. - Schedule an appointment with an eye aged or disabled care worker for vision concerns, especially night driving difficulties. - Moderate consumption of chocolate raisins and work on improved dietary habits for weight management. - Follow up as instructed if any changes in symptoms occur or if pain management needs adjustment. Orders: Referrals Gastroenterology Referral D12.6 - Benign neoplasm of colon, unspecified
== END 2024-06-28 11:51 | disposition home or self-care (01) ==
LOC: HO.HMCH 10:51
PROVIDERS: PCP Internal Medicine; Visit Provider Internal Medicine
DX: J43.1 Panlobular emphysema (principal); R73.01 Impaired fasting glucose; E66.9 Obesity, unspecified; Z68.31 Body mass index [BMI] 31.0-31.9, adult; I10 Essential (primary) hypertension; H61.23 Impacted cerumen, bilateral; F41.1 Generalized anxiety disorder; M89.49 Other hypertrophic osteoarthropathy, multiple sites; D12.6 Benign neoplasm of colon, unspecified

== ENCOUNTER → 2024-06-28 10:50 | Outpatient (BNVA) | payer MEDICARE, SELFPAY | PROVIDERS: PCP Internal Medicine; Visit Provider Internal Medicine | DX: R73.01 Impaired fasting glucose (principal); J43.1 Panlobular emphysema; E66.9 Obesity, unspecified; I10 Essential (primary) hypertension; F41.1 Generalized anxiety disorder; M89.49 Other hypertrophic osteoarthropathy, multiple sites; D12.6 Benign neoplasm of colon, unspecified; H61.23 Impacted cerumen, bilateral | CPT/HCPCS: 96127; 99212 ==

== ENCOUNTER 2024-09-27 10:23 | Outpatient (REF) | payer MEDICARE, SELFPAY ==
--- NOTE | ~2024-09-27 | US_ITS ---
EXAMINATION: US COMPLETE ABDOMEN WITH LIVER ELASTOGRAPHY CLINICAL INFORMATION: History of hepatitis C. COMPARISON: 02/14/2019. No prior elastography. TECHNIQUE: Real-time imaging of the abdominal viscera. Noninvasive ultrasound liver fibrosis assessment is performed using Raymond ElastPQ point quantification shear wave elastography (pSWE) with a C5-2 MHz transducer. Multiple elastography samples are obtained. FINDINGS: PANCREAS: The visualized pancreatic head and body are normal in appearance. The remainder of the pancreas is obscured from visualization by the overlying bowel gas. ABDOMINAL AORTA: No aortic aneurysm is seen. Distal aspect is obscured by gas. INFERIOR VENA CAVA: Visualized portions are normal. LIVER: Liver is mildly enlarged, and demonstrates diffusely increased echogenicity. Focal fatty sparing abutting the gallbladder fossa. Normal contour. There is an echogenic oval lesion in the right hepatic lobe measuring 5.3 x 4.9 x 4.4 cm, not previously seen nor described. No additional lesions. No intra or extrahepatic biliary dilatation. The right lobe measures 19.6 cm in length. The left lobe measures 7.9 cm in length. Portal flow is towards the liver (hepatopetal). Shear wave liver elastography median stiffness is 1.66 m/s (reference: normal median stiffness is 1.3 m/s or less). IQR/median stiffness to assess sampling precision is 0.08 (reference: good quality data set is IQR/median stiffness of 0.15 or less). GALLBLADDER: The gallbladder is physiologically distended without evidence of stones, sludge, polyps, wall thickening or pericholecystic fluid. COMMON BILE DUCT: Normal in caliber measuring 0.6 cm in diameter. RIGHT KIDNEY: No hydronephrosis. No renal calculi or focal parenchymal lesions. The kidney measures 13.2 cm in maximum dimension. LEFT KIDNEY: No hydronephrosis. No renal calculi or focal parenchymal lesions. The kidney measures 13.1 cm in maximum dimension. SPLEEN: Unremarkable. The spleen measures 12.2 cm in maximum dimension. There are calcified granulomata. FREE FLUID: None seen. US/US abdomen comp w elastography IMPRESSION: 1. Mild hepatomegaly with diffusely increased hepatic echogenicity, likely steatosis. Focal fatty sparing abutting the gallbladder fossa. There is an oval echogenic right hepatic lobe lesion measuring 5.3 x 4.9 x 4.4 cm, indeterminate, but suggestive of a hemangioma. This was not previously seen or described. Liver protocol MRI recommended for further evaluation. 2. Liver elastography: In the absence of other known clinical signs, measurements rule out compensated advanced chronic liver disease. If there are known clinical signs, further testing may be needed for confirmation. 3. Normal gallbladder and bile ducts. 4. Remainder of the exam is normal. REFERENCE: Society of Radiologists in Ultrasound Liver Stiffness Thresholds (2019): LIVER STIFFNESS THRESHOLDS: *Liver Stiffness equal or less than 1.3 m/s: High probability of being normal. *Liver Stiffness less than 1.7 m/s: In the absence of other known clinical signs, rules out compensated advanced chronic liver disease. *Liver Stiffness 1.7-2.1 m/s: Suggestive of compensated advanced chronic liver disease but need further test for confirmation. *Liver Stiffness over 2.1 m/s: Rules in compensated advanced chronic liver disease. *Liver Stiffness over 2.4 m/s: Suggestive of clinically significant portal hypertension. QUALITY OF DATA SET: *IQR/Median value equal or less than 0.15 implies a quality data set. *IQR/Median value over 0.15 implies a poor quality data set. SIGNIFICANT CHANGE FROM PRIOR EXAM: Significant change if liver stiffness measurement is 10% or greater from prior exam. OTHER CONSIDERATIONS: The stage of liver fibrosis may be overestimated in the setting of acute hepatitis, liver inflammation, elevated liver function tests, hepatic vascular congestion, obstructive cholestasis, non-fasting state, and infiltrative diseases such as amyloidosis and lymphoma. In some patients with NAFLD, the liver stiffness thresholds for compensated advanced chronic liver disease may be lower. In causes other than viral hepatitis and NAFLD, liver stiffness thresholds are not well established. Electronically signed by: Fabian Fry MD 09/27/2024 11:38 AM EDT
[2024-09-27 11:37] LABS: MANUAL DIFF FLAG NO
--- OUTSIDE RECORDS SUMMARY | 2024-09-27 11:45 | XMS_ITS | Data Portability ---
Author Organization [facility], [facility] Address [address] [place] [address] Care Team Providers Care Neighborhood Aide Name Role Phone CEPATTI Primary Care Provider Assessment Encounter Date Assessment Date Assessment LastModified by Organization Details LastModified Time 06/27/2023 06/27/2023 ASSESSMENT Chronic rotator cuff distribution pain in a 77-year-old male. Rotator cuff tear left shoulder. PLAN The patient has done well with conservative management in regards to the shoulder. Continued conservative management recommended. Moderating activities with the upper extremity recommended also. Ater meticulous sterile preparation a total of 40mg of Kenalog and 4 cc of 1/4% Marcaine was injected into the subacromial space of the left shoulder. Patient tolerated the injection well. Moderating activities with the upper extremity recommended. The patient will follow up as symptoms require going forward. brianne Not available 06/27/2023 11:03:07 Plan of Treatment Reminders Order Date Submit Date Provider Last Modified By Organization Details Last Modified Time Details Appointments None record ed. Lab None record ed. Referral None record ed. Procedures None record ed. Surgeries None record ed. Imaging None record ed. Medication Orders None record ed. Patient TargetsNo targets recorded. Patient InstructionsNo instructions recorded. Reason for Referral None Reported. Problems Name Problem SNOMED Code Status Onset Date Resolution Date Notes Provider Name and Address Organization Details Recorded Time Nontrauma tic complete rupture of rotator cuff of left shoulder [id number] 9102 Active 2024 Lai Frias PA-C [address], [place], [address] , [facility] 07:41:48 Idiopathi c osteoarth ritis [id number] Active 2015 Problem Code: M17.12; Problem Code Type: ICD-10; Status: 'A'; Not Available [facility] 11:43:45 Problem Notes None recorded. Procedures Surgical History Date Name Laterality Status Provider Name and Address Organization Details Recorded Time 5 Sports Shoulder completed Lai Frias PA-C [address], [place], [address], [facility] 09/06/2024 07:41:22 4 Sports Shoulder completed Lai Frias PA-C [address], [place], [address], [facility] 06/27/2023 11:04:48 Imaging Results None recorded. Procedure Notes None recorded. Medical Equipment None Reported. Allergies No known drug allergies Medications Name Sig Start Date Stop Date Status Note LastModified by Organization Details LastModified Time atenolol 100 mg tablet TAKE 1 TABLET DAILY active Not Available Not Available No t Available sertraline 100 mg tablet TAKE 1 TABLET BY MOUTH EVERY DAY active Not Available Not Available No t Available oxycodone-a cetaminophe n 5 mg-325 mg tablet TAKE 1 TABLET BY MOUTH EVERY 6 HOURS NEEDED FOR PAIN active Not Available Not Available No t Available pseudoephed rine-guaife nesin ER 80-700 mg tablet,exte nded release Percocet 5-325MG Tablet 1 every 4 - 6 hours as needed 12/22 completed Statu s: 'Disc ontin ued'; Not Available Not Available Not Available celecoxib 100 mg capsule TAKE 1 CAPSULE DAILY active Not Available Not Available No t Available lisinopril 40 mg tablet TAKE 1 TABLET DAILY active Not Available Not Available No t Available fluticasone propionate 50 mcg/actuati on nasal spray,suspe nsion SPRAY 2 SPRAYS INTO EACH NOSTRIL EVERY DAY active Not Available Not Available No t Available oxycodone HCl-oxycodo ne-ASA as directed 1 TABLET Q 4 HOURS PRN PAIN DO NOT DIRVE WHILE ON THIS MED 12/22 completed Statu s: 'Disc ontin ued'; Not Available Not Available Not Available Vitals Date Recorded Body height Body mass index (BMI) Body weight Provider Name and Address Organization Details Last Updated DateTime 06/27/2023 180.34 cm 31.8 kg/m2 382465.06 g RAZIA ROMANO [facility] 06/27/2023 10:41:11 Date Recorded Body height Body mass index (BMI) Body weight Provider Name and Address Organization Details Last Updated DateTime 09/05/2024 180.34 cm 31.8 kg/m2 891037.06 g Florence Macias [facility] 09/05/2024 14:08:21 Social History None recorded. Functional Status None recorded. Mental Status None recorded. Family History Nothing Reported. Medical History No medical history recorded. Past Encounters Encounter ID Performer Location Encounter Start Date Encounter Closed Date Diagnosis/Indication Diagnosis SNOMED-CT Code Diagnosis ICD10 Code Diagnosis Note [id number] [facility]RA[facility] [address] [place] [address] 06/27/2023 10:16:04 06/27/2023 11:29:42 Full thickness rotator cuff tear [id number] M75.078 [id number] Lai Frias PA-C [facility] [address] [place] [address] 09/05/2024 13:50:47 09/14/2024 13:36:17 Nontraumatic complete rupture of rotator cuff of left shoulder [id number] 011389 M75.122 Health Concerns Section Related Observation LastModified by Organization Detai ls LastModified Time None Recorded Concern Status LastModified by Organization Details LastModified Time None Recorded Advance Directives Directive None Recorded Payers Insurance Date Sequence Insurance Name Policy Number Policy Hart Covered Member ID Hart Member ID Guarantor Name 09/14/2024 1 [facility] [id number] Regino Noel [id number] Regino Noel Notes Date Note Type Note Provider Name and Address Organization Details Recorded Time 06/27/2023 text/html I am seeing the patient today under the supervision of Dr. Rodriguez who was available but who did not see the patient.REASON FOR VISITPatient comes to the office with known history of rotator cuff disease left shoulder. Was doing very well after previous injection until he did some yard work and lifted a heavy bag of fertilizer and felt sharp pain. Here today requesting a repeat injection. The patient has done well with conservative management for their shoulder pain. Recently reports increasing discomfort over the past several weeks without injury. Pain is generalized about the shoulder and discomfort is noted at night.PAST MEDICAL/SURGICAL HISTORYCurrent medications and surgeries were reviewed per intake sheet. Lai Frias PA-C [address], [place], [address], [facility] 06/27/2023 11:05:43 09/05/2024 text/html I am seeing the patient today under the supervision of Dr. Cui who was available but who did not see the patient. REASON FOR VISIT Patient comes to the office with known left shoulder rotator cuff tear. Patient previously seen over a year ago in June 2023. At that visit left shoulder injection provided excellent long-lasting relief of symptoms. Patient reaggravated the shoulder several months ago when he was reaching behind his head and trying to pull a pillow out from behind himself and felt sharp pain and tearing sensation. The patient has done well with conservative management for their shoulder pain. Recently reports increasing discomfort over the past several weeks without injury. Pain is generalized about the shoulder and discomfort is noted at night. PAST MEDICAL/SURGICAL HISTORY Current medications and surgeries were reviewed per intake sheet. PHYSICAL FINDINGS The patient is well appearing, in no apparent distress, alert and oriented to person, place and time. Gait is symmetric. No significant swelling, warmth or erythema about either shoulder. Left shoulder exam : ROM near normal active and passive range of motion, there is mild tenderness to palpation about the shoulder, moderate pain through mid range manipulations. 3+/5 strength of the shoulder with resisted external rotation and elevation. Well-preserved internal rotation strength. Overall good stability of the shoulder. Peripheral, vascular, lymphatic examination, skin, neurologic coordination, reflexes, sensation are within normal limits. ASSESSMENT Left shoulder rotator cuff tear. PLAN The patient has done well with conservative management with regards to the shoulder. Continued conservative management recommended. Moderating activities with the upper extremity recommended also. Patient consents to repeating corticosteroid injection which was performed. Patient tolerated the injection well. Moderating activities with the upper extremity Next 48 hours recommended. The patient will follow up as symptoms require going forward. Lai Frias PA-C [address], [place], [address], [facility] 09/06/2024 07:42:38
[2024-09-27 11:49] LABS: Basophils Percent Auto 0.6 % (0-2); Eosinophils Absolute Auto 0.1 X10*3/uL (0.0-0.4); Eosinophils Percent Auto 1.4 % (0-4); Hematocrit 46.8 % (42.0-52.0); Hemoglobin 15.3 g/dl (14.0-18.0); Imm Gran Abs Auto 0.02 X10*3/uL (0.00-0.03); Imm Gran Pct Auto 0.3 % (0.0-0.4); Lymphocytes Absolute Auto 0.9 X10*3/uL (1.2-4.9); Mean Corpuscular HGB Conc 32.7 g/dl (31.0-36.0); Mean Corpuscular Hemoglobin 29.4 pg (27.0-33.0); Mean Platelet Volume 9.9 fL (9.4-12.4); Monocytes Absolute Auto 0.5 X10*3/uL (0.1-1.2); Monocytes Percent Auto 7.9 % (2-11); Neutrophils Absolute Auto 4.9 x10*3/uL (2.0-8.3); Neutrophils Percent Auto 75.8 % (45-73); Platelet Count 165 X10*3/uL (160-400); White Blood Count 6.4 X10*3/uL (4.8-10.8)
[2024-09-27 11:51] LABS: Prothrombin Time 11.5 SEC (10.9-12.4)
[2024-09-27 12:08] LABS: Alanine Aminotransferase 23 U/L (0-40); Albumin Level 4.4 g/dL (3.5-5.0); Alkaline Phosphatase 88 U/L (39-117); Aspartate Amino Transferase 23 U/L (5-37); Bilirubin Direct 0.3 mg/dL (0.0-0.5); Bilirubin Total 0.9 mg/dL (0.0-1.0); Total Protein 7.4 g/dL (6.5-8.0)
[2024-10-01 13:18] LABS: Alpha Fetoprotein 1.6 ng/mL (<6.1)
[2024-10-09 01:23] LABS: FIB-ALT 16 U/L (9-46); FIB-Alpha-2-Macroglobulin 288 mg/dL (106-279); FIB-Apolipoprotein A1 149 mg/dL (94-176); FIB-GGT 52 U/L (3-70); FIB-Haptoglobin 83 mg/dL (43-212); FIB-Total Bilirubin 0.6 mg/dL (0.2-1.2); Liver Fibrosis Stage F3; Nec Inflam Act Grade A0
== END 2024-09-27 10:24 | disposition home or self-care (01) ==
LOC: HO.US 10:23
PROVIDERS: PCP Internal Medicine; Visit Provider Internal Medicine
DX: Z86.19 Personal history of other infectious and parasitic diseases (principal)
CPT/HCPCS: 36415; 76700; 76981; 80076; 81596; 82105; 85025; 85610

== ENCOUNTER → 2024-09-27 10:39 | Outpatient (BNV) | payer MEDICARE, SELFPAY | PROVIDERS: PCP Internal Medicine; Visit Provider Radiology Diagnostic Radiology | DX: R93.2 Abnormal findings on diagnostic imaging of liver and biliary tract (principal) | CPT/HCPCS: 76700 ==

== ENCOUNTER 2024-10-03 10:06 | Outpatient (AMB) | payer MEDICARE, SELFPAY ==
[2024-10-03 10:07] VITALS: BP 126/84; PULSE 57; O2SAT 96; BMI 31.1
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
--- OUTSIDE RECORDS SUMMARY | 2024-10-03 11:37 | XMS_ITS | Data Portability ---
Author Organization [facility], [facility] Address [address] [place] [address] Care Team Providers Care Cooker Syrup Name Role Phone CEPATTI Primary Care Provider [...] rupture of rotator cuff of left shoulder [id number] Active 2024 Lai Frias PA-C [address], [facility] [place], [address] , [facility] 07:41:48 Idiopathi c osteoarth ritis [id number] Active 2015 Problem Code: M17.12; Problem Code Type: ICD-10; Status: 'A'; Not Available [facility] 4 11:43:45 Problem Notes None recorded. Procedures Surgical History Date Name Laterality Status Provider Name and Address Organization Details Recorded Time 5 Sports Shoulder completed Lai Frias PA-C [address], [place], [address], [facility] 09/06/2024 07:41:22 4 Sports Shoulder completed Lai Frias PA-C [address], [place], [address], [facility] 06/27/2023 11:04:48 Imaging Results None recorded. Procedure [...] Updated DateTime 06/27/2023 180.34 cm 31.8 kg/m2 680232.06 g RAZIA ROMANO [facility] 06/27/2023 10:41:11 Date Recorded Body height Body mass index (BMI) Body weight Provider Name and Address Organization Details Last Updated DateTime 09/05/2024 180.34 cm 31.8 kg/m2 584663.06 g Florence Macias [facility] 09/05/2024 14:08:21 Social History None recorded. Functional Status None recorded. Mental Status None recorded. Family History Nothing Reported. Medical History No medical history recorded. Past Encounters Encounter ID Performer Location Encounter Start Date Encounter Closed Date Diagnosis/Indication Diagnosis SNOMED-CT Code Diagnosis ICD10 Code Diagnosis Note [id number] ABRAHAM Acevedo [address] [place] [address] 06/27/2023 10:16:04 06/27/2023 11:29:42 Full thickness rotator cuff tear [id number] M75.265 [id number] Lai Frias PA-C [facility] [address] [place] [address] 09/05/2024 13:50:47 09/14/2024 13:36:17 Nontraumatic complete rupture of rotator cuff of left shoulder [id number] M75.122 Health Concerns Section Related Observation LastModified by Organization Detai ls LastModified Time None Recorded Concern Status LastModified by Organization Details LastModified Time None Recorded Advance Directives Directive None Recorded Payers Insurance Date Sequence Insurance Name Policy Number Policy Hart Covered Member ID Hart Member ID Guarantor Name 09/14/2024 1 [facility] [id number] Regino Noel [id number] Regino Noel Notes Date Note Type [...] and surgeries were reviewed per intake sheet. ABRAHAM Acevedo [address] [address], [place], [address], [facility] [place] 06/27/2023 11:05:43 09/05/2024 text/html I am seeing [...] follow up as symptoms require going forward. ABRAHAM Acevedo [address], [place], [address], [facility] [place] [facility] 09/06/2024 07:42:38
== END 2024-10-03 10:43 | disposition home or self-care (01) ==
LOC: HO.HMCH 10:06
PROVIDERS: PCP Internal Medicine; Visit Provider Internal Medicine
DX: R73.01 Impaired fasting glucose (principal); E66.9 Obesity, unspecified; Z68.31 Body mass index [BMI] 31.0-31.9, adult; M89.49 Other hypertrophic osteoarthropathy, multiple sites; I10 Essential (primary) hypertension; D12.6 Benign neoplasm of colon, unspecified; F41.1 Generalized anxiety disorder; R39.198 Other difficulties with micturition; N52.9 Male erectile dysfunction, unspecified

== ENCOUNTER → 2024-10-03 10:06 | Outpatient (BNVA) | payer MEDICARE, SELFPAY | PROVIDERS: PCP Internal Medicine; Visit Provider Internal Medicine | DX: I10 Essential (primary) hypertension (principal); M89.49 Other hypertrophic osteoarthropathy, multiple sites; D12.6 Benign neoplasm of colon, unspecified; R73.01 Impaired fasting glucose; E66.9 Obesity, unspecified; F41.1 Generalized anxiety disorder; R39.198 Other difficulties with micturition; N52.9 Male erectile dysfunction, unspecified; J44.9 Chronic obstructive pulmonary disease, unspecified; E78.5 Hyperlipidemia, unspecified; Z68.31 Body mass index [BMI] 31.0-31.9, adult; Z79.899 Other long term (current) drug therapy | CPT/HCPCS: 96127; 99212 ==

== ENCOUNTER 2024-10-19 11:34 | Outpatient (AMB) | payer MEDICARE, SELFPAY ==
[2024-10-19 11:36] VITALS: BP 142/94; PULSE 72; RESP 18; TEMP 36.1; O2SAT 96; BMI 30.8
--- NOTE | 2024-10-19 11:36 | A.OFFPC_ITS ---
Vital Signs 10/19/24 11:36 10/19/24 11:51 Height 5 ft 11 in Weight 221 lb 2 oz BMI 30.8 BP 142/94 H 124/70 Blood Pressure Location Lt brachial Lt brachial Position Sitting Sitting Respiration 18 Pulse 72 Pulse Source Pulse Oximeter Temp 97.0 F Temp Source Temporal Artery Scan Pulse Oximetry (%) 96 Oxygen Delivery Method Room Air Intake Visit Reasons: Dr Georges 10/30 rt eye cataract Allergies No Known Allergies Allergy (Verified 10/19/24 11:39) Medication List - Last Reconciled 10/19/24 by Janel Pitts MD atenolol 100 mg PO DAILY celecoxib 100 mg PO DAILY cholecalciferol (vitamin D3) 25 mcg PO DAILY cyanocobalamin (vitamin B-12) (Vitamin B-12) 500 mcg PO DAILY fluticasone propionate 50 mcg/actuation (Allergy Relief (fluticasone)) 2 sprays intranasal DAILY lisinopril 40 mg PO DAILY 90 days oxycodone-acetaminophen 5-325 mg (Percocet) 1 tab PO Q6H PRN sertraline 100 mg PO DAILY 90 days Tobacco use date assessed: 10/19/24 Fall risk assessment: No Falls in past year Last assessed Fall Risk: 10/19/24 Dental Screening Dental Screen Date: 10/03/24 Did you have a dental visit in the last 12 months?: Yes Did you have a dental problem in the last 6 months where you did not have access to dental care?: No Was dental information given to patient?: Patient has dentist [facility] Medical History Elevated blood sugar COVID-19 virus infection Fatty liver Hemorrhoids Diverticular disease Hepatitis C COPD (chronic obstructive pulmonary disease) Peripheral vascular disease Obesity (BMI 30-39.9) Osteoarthritis Pernicious anemia Anxiety Erectile dysfunction Carpal tunnel syndrome Hypertension Surgical History History of nasal surgery History of knee replacement procedure of left knee History of knee replacement procedure of right knee History of arthroscopy of right knee History of removal of cyst History of carpal tunnel release History of tonsillectomy History of umbilical hernia repair Family History Father No problems noted. Mother Colon cancer Hypertension Brother Colon cancer Sister Colon cancer Social History Housing: House Alcohol intake: former Patient Tobacco Use Status: Former Tobacco user Tobacco use type: Cigarette Years Smoked: quit 1995 e-Cigarette/Vaping Use: Never Used Second Hand Smoke Exposure: No service: Yes Current occupational status: retired Cognitive needs: No Hearing needs: No Vision needs: Yes Questionnaire PHQ-9 Over the last 2 weeks, how often have you been bothered by any of the following problems? 1. Little interest or pleasure in doing things: nearly every day 2. Feeling down, depressed, or hopeless: more than half the days 3. Trouble falling or staying asleep, or sleeping too much: not at all 4. Feeling tired or having little energy: not at all 5. Poor appetite or overeating: not at all 6. Feeling bad about yourself - or that you are a failure or have let yourself or your family down: not at all 7. Trouble concentrating on things, such as reading the newspaper or watching television: not at all 8. Moving or speaking so slowly that other people could have noticed. Or the opposite - being so fidgety or restless that you have been moving around a lot more than usual: nearly every day 9. Thoughts that you would be better off or of hurting yourself in some way: more than half the days Total score: 10 Source: Developed by Drs. Regino Moran, Natacha Vallejo, Ash Wolf and colleagues, with an educational jose luis from [employer]. Thrive Questionnaire Date Thrive assessed: 10/03/24 I am a: Patient What is your living situation today?: I have a steady place to live Within the past 12 months, did the food you bought not last and you didn't have the money to get more?: Never true Within the past 12 months, did you worry whether your food would run out before you got money to buy more?: Never true Do you have trouble paying for medicines?: No Do you have trouble getting transportation to medical appointments?: No Do you have trouble paying your heating and electricity bill?: No Do you have trouble taking care of your child, family member or friend?: No Do you have trouble with day-to-day activities such as bathing, preparing meals, shopping, managing finances, etc.?: No Are you currently unemployed and looking for a job?: No Are you interested in more education?: No Please select the resources that you would like help with: None Currently or been in a relationship where the following occur: No concerns rep orted THRIVE Score: 0 AUDIT C Alcohol Use Questionnaire (AUDIT-C) 1. How often do you have a drink containing alcohol?: Never 3. How often do you have six or more drinks on one occasion?: Never Total Score: 0 DEVON-7 AMB Questionnaire DEVON-7 Date DEVON - 7 assessed: 10/03/24 Feeling nervous, anxious, or on edge: 0 = Not at all Not being able to stop or control worryin = Not at all Worrying too much about different things: 0 = Not at all Trouble relaxin = Not at all Being so restless that it is hard to sit still: 0 = Not at all Becoming easily annoyed or irritable: 0 = Not at all Feeling afraid as if something awful might happen: 0 = Not at all Total DEVON-7 score (0-4 normal; 5-9 mild; 10-14 moderate; 15-21 severe): 0 Source: Developed by Drs. Regino Moran, Natacha Vallejo, Ash Wolf and colleagues, with an educational jose luis from [employer]. Review of Systems Const Denies poor appetite and Denies weakness Eyes Denies no additional complaints ENT Reports Normal hearing present, Denies dizziness, Denies nasal congestion, Denies tinnitus and Denies sore throat Card Denies chest pain, Denies syncope, Denies rapid heart rate and Denies dyspnea Resp Denies cough and Denies dyspnea GI Denies change in stool character, Reports constipation, Denies diarrhea, Denies nausea and Denies vomiting Denies dysuria and Denies urinary frequency Neuro Reports Normal hearing present, Denies confusion, Denies dizziness, Denies syncope and Denies weakness Psych Denies confusion Physical exam (Primary Care) Vital Signs: Last Vital Signs Temp 97.0 F 10/19/24 11:36 Pulse 72 10/19/24 11:36 Resp 18 10/19/24 11:36 BP 142/94 H 10/19/24 11:36 Pulse Ox 96 10/19/24 11:36 Oxygen Delivery Method Room Air 10/19/24 11:36 BMI result Body Mass Index 30.8 Tobacco/Smoking Status: Tobacco use Status Tobacco use date assessed 10/19/24 10/19/24 11:40 Patient Tobacco Use Status Former Tobacco user 10/19/24 11:40 Tobacco use type Cigarette 10/19/24 11:40 e-Cigarette/Vaping Use Never Used 10/19/24 11:40 PHQ-9: PHQ-9 Score PHQ-9: Total score 10 10/19/24 11:40 Thrive Assessment: Date of Thrive Assessment Date Thrive assessed 10/03/24 10/19/24 11:40 Currently or been in a relationship where the following occur: No concerns reported Const General: No confusion Orientation/consciousness: No confusion HENMT Head: Yes normocephalic Ears: external ears normal and TM's normal bilaterally Face and sinus: Yes normal facial exam Mouth: moist mucous membranes Throat: Yes tonsils normal Eyes Conjunctivae: conjunctivae normal Pupils: Equal, round and reactive pupils present and Pupil accommodation reflex normal Direct Ophthalmoscopy: normal light reflex Neck Neck: No lymphadenopathy Thyroid: Thyroid normal Chest Chest palpation & inspection: normal inspection of the chest Resp Effort & Inspection: normal respiratory effort and no audible wheezes Auscultation: clear to auscultation bilaterally, no crackles, no wheezes and lung sounds not diminished Cardio Rate: regular rate Rhythm: regular rhythm Peripheral pulses: radial pulses present and dorsalis pedis present GI Palpation (GI): no masses Auscultation: normal bowel sounds and normoactive bowel sounds Rectal Exam - Male: Yes deferred Skin General skin exam: no rashes or lesions noted Rashes: no rashes Neuro General: No confusion Cranial nerves: Yes Equal, round and reactive pupils present and Yes Normal hearing present Cognition (Neuro): normal cognition Gait exam (Neuro): Normal gait present Motor exam (neuro): 5/5 motor strength present throughout Deep tendon reflexes (DTR's): Right brachioradialis reflex intensity grade: 2+, Left brachioradialis reflex intensity grade: 2+, Right patellar reflex intensity grade: 2+ and Left patellar reflex intensity grade: 2+ Extrem General: No edema Coding Level of Care Code Est Pt Level 4 (68619) Diagnoses Preop exam for internal medicine Z01.818 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 type: panlobular Cataract H26.9 Obesity (BMI 30-39.9) E66.9 Impaired fasting blood sugar R73.01 Essential hypertension I10 Hypertension type: essential hypertension Generalized anxiety disorder F41.1 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 Patient belongs to the intermediate risk due to age. Will await for the results. (2) COPD (chronic obstructive pulmonary disease): Code(s): J44.9 - Chronic obstructive pulmonary disease, unspecified Category: Medical Qualifiers: COPD type: emphysema Emphysema type: panlobular Qualified Code(s): J43.1 - Panlobular emphysema Plan: Patient has a stable COPD and has not been using any inhalers (3) Cataract: Code(s): H26.9 - Unspecified cataract Category: Medical (4) Obesity (BMI 30-39.9): Code(s): E66.9 - Obesity, unspecified Category: Medical Plan: Diet and exercise (5) Impaired fasting blood sugar: Code(s): R73.01 - Impaired fasting glucose Category: Medical Plan: Decrease the amount of carbohydrate intake, pasta, bread, rice and potatoes are all sugar and that is aside from all the sweet stuff, remember that fruits are good but they are Sweet also. (6) Hypertension: Code(s): I10 - Essential (primary) hypertension Category: Medical Qualifiers: Hypertension type: essential hypertension Qualified Code(s): I10 - Essential (primary) hypertension Plan: Continue with blood pressure medication. Decrease salt intake and exercise on lisinopril 40 mg once a day atenolol 100 mg once a day (7) Generalized anxiety disorder: Comment: Decline referral counseling( 11/2021) Code(s): F41.1 - Generalized anxiety disorder Category: Medical Plan: On sertraline 100 mg once a day (8) Osteoarthritis: Comment: Knees and back Code(s): M19.90 - Unspecified osteoarthritis, unspecified site Category: Medical Qualifiers: Osteoarthritis location: multiple joints Osteoarthritis type: primary Qualified Code(s): M89.49 - Other hypertrophic osteoarthropathy, multiple sites Plan: Narcotic pain meds: Is being prescribed with the understanding that these medications are potentially addictive and should be used only when absolutely necessary and must always be secured. Any remaining pills should be safely disposed off appropriately. Patient is advised that narcotics can impaired judgment and one should not drive or operate heavy machinery while taking these medications. Never share these medications with anybody and do not leave them unattended. They will not be replaced under any circumstances. Patient also on celecoxib 100 mg once a day Plan History of Present Illness The patient is a 79-year-old male presenting for a preoperative evaluation for cataract surgery. He has a history of severe hypertension, chronic obstructive pulmonary disease (COPD), generalized anxiety disorder, peripheral vascular disease, and osteoarthritis of the knee. The patient was last seen on October 03, 2024, The patient is scheduled for right eye cataract surgery on October 30. He reports stable COPD and has not been using any inhalers. His current medications include lisinopril 40 mg once daily, atenolol 100 mg once daily, sertraline 100 mg once daily, and celecoxib 100 mg once daily. The patient denies alcohol and cigarette use and reports no nausea, vomiting, fevers, or chest pain. He does not experience dyspnea on exertion and can manage stairs without difficulty. Health Maintenance Social History - Substance Use: Denies alcohol and cigarette use Review of Systems - General: Denies nausea, vomiting, fevers - Cardiovascular: Denies chest pain - Respiratory: Denies dyspnea on exertion Physical Exam - Cardiovascular: Regular heart rate and rhythm - Respiratory: Regular breathing pattern Results - Labs: Normal blood count, mildly elevated sodium at 146, stable renal function, mildly elevated blood sugar with normal hemoglobin A1c Plan The patient is scheduled for cataract surgery on October 30, and a preoperative evaluation is necessary to assess his risk for heart and lung complications during the procedure. Given his age and medical history, he is considered at intermediate risk, but the cataract procedure itself is low risk. An EKG and blood work, including kidney function and electrolytes, are required to ensure he is fit for surgery. The patient is advised to adhere to his medication regimen, including lisinopril, atenolol, sertraline, and celecoxib, and to avoid missing doses, especially on the day of surgery. He is reminded to avoid excessive use of Flonase due to potential effects on cataracts. Patient was informed and verbally consented to the use of an ambient scribe for clinic note documentation during this visit. Discussion Notes I discussed with the patient the risks and benefits of the upcoming cataract surgery, emphasizing that while the procedure is low risk, his age places him at intermediate risk for complications. We agreed on the need for an EKG and blood work to ensure surgical fitness, and I advised him to maintain his medication regimen and avoid excessive use of Flonase. Patient Instructions - Continue taking all prescribed medications as directed. - Do not miss any doses, especially on the day of surgery. - Avoid excessive use of Flonase to prevent potential effects on cataracts. - Complete the EKG and blood work as soon as possible. Orders: Orders ECG 12 lead EKG Today Z01.818 - Encounter for other preprocedural examination Complete Blood Count Auto Diff Today Z01.818 - Encounter for other preprocedural examination Basic Metabolic Panel Today Z01.818 - Encounter for other preprocedural examination
[2024-10-19 11:51] VITALS: BP 124/70
--- OUTSIDE RECORDS SUMMARY | 2024-10-19 12:04 | XMS_ITS | Data Portability ---
Author Organization [facility], [facility] Address [address] [place] [address] Care Team Providers Care Cna Gna Name Role Phone CEPATTI Primary Care Provider [phone] Assessment Encounter Date Assessment Date Assessment LastModified [...] rupture of rotator cuff of left shoulder [id number] 9102 Active 2024 Lai Frias PA-C [address], [facility] [place], [address] , [facility] 07:41:48 Idiopathi c osteoarth ritis [id number] Active 2015 Problem Code: M17.12; Problem Code Type: ICD-10; Status: 'A'; Not Available [facility] 4 11:43:45 Problem Notes None recorded. Procedures Surgical History Date Name Laterality Status Provider Name and Address Organization Details Recorded Time 5 Sports Shoulder completed Lai Frias PA-C [address], [place], [address], [facility] 09/06/2024 07:41:22 4 Sports Shoulder completed Lai Frias PA-C [address], [place], [address], [facility] 06/27/2023 11:04:48 Imaging Results None recorded. Procedure [...] Updated DateTime 06/27/2023 180.34 cm 31.8 kg/m2 744680.06 g RAZIA ROMANO [facility] 06/27/2023 10:41:11 Date Recorded Body height Body mass index (BMI) Body weight Provider Name and Address Organization Details Last Updated DateTime 09/05/2024 180.34 cm 31.8 kg/m2 421810.06 g Florence Macias [facility] 09/05/2024 14:08:21 Social History None recorded. Functional Status None recorded. Mental Status None recorded. Family History Nothing Reported. Medical History No medical history recorded. Past Encounters Encounter ID Performer Location Encounter Start Date Encounter Closed Date Diagnosis/Indication Diagnosis SNOMED-CT Code Diagnosis ICD10 Code Diagnosis Note [id number] ABRAHAM Acevedo [address] [place] [address] 06/27/2023 10:16:04 06/27/2023 11:29:42 Full thickness rotator cuff tear [id number] M75.766 [id number] Lai Frias PA-C [facility] [address] [place] [address] 09/05/2024 13:50:47 09/14/2024 13:36:17 Nontraumatic complete rupture of rotator cuff of left shoulder [id number] M75.122 Health Concerns Section Related Observation LastModified by Organization Detai ls LastModified Time None Recorded Concern Status LastModified by Organization Details LastModified Time None Recorded Advance Directives Directive None Recorded Payers Insurance Date Sequence Insurance Name Policy Number Policy Hart Covered Member ID Hart Member ID Guarantor Name 09/14/2024 1 [facility] [id number] Regino Noel [id number] Regino Noel Notes Date Note Type [...] were reviewed per intake sheet. ABRAHAM Acevedo [address] [address], [place], [address], [facility] [place] [facility] 06/27/2023 11:05:43 09/05/2024 text/html I am seeing [...] require going forward. ABRAHAM Acevedo [address], [place], [address], [facility] [place] [facility] 09/06/2024 07:42:38
--- OUTSIDE RECORDS SUMMARY | 2024-10-19 12:04 | XMS_ITS | Patient Health Record ---
Author Organization [facility] Address [address] [place] [address] Care Team Providers Care Director Safety Council Name Role Phone Janel Pitts MD Primary Care Provider Guanaco Bansal Unavailable [phone] Allergies No Known Allergies Results Component Value Reference Range Notes Complete Blood Count Auto Di ff Reviewed date:09/27/2024 11:18:00 PM Interpretation: Performing Lab:[facility], [address] [place] [phone] Notes/Report: White Blood Count 6.4 4.8-10.8 X10*3/uL Red Blood Count 5.20 4.60-5.80 X10*6/uL Hemoglobin 15.3 14.0-18.0 g/dl Hematocrit 46.8 42.0-52.0 % Mean Corpuscular Volume 90.0 80.0-98.0 fL Mean Corpuscular Hemoglobin 29.4 27.0-33.0 pg Mean Corpuscular HGB Conc 32.7 31.0-36.0 g/dl Red Cell Distribution Width 13.0 11.0-16.0 % Platelet Count 165 160-400 X10*3/uL Mean Platelet Volume 9.9 9.4-12.4 fL Neutrophils Percent Auto 75.8 45-73 % Imm Gran Pct Auto 0.3 0.0-0.4 % Lymphocytes Percent Auto 14.0 20-40 % Monocytes Percent Auto 7.9 2-11 % Eosinophils Percent Auto 1.4 0-4 % Basophils Percent Auto 0.6 0-2 % NRBC Pct Auto 0.0 0.0-0.2 /100WBC Neutrophils Absolute Auto 4.9 2.0-8.3 x10*3/u L Imm Gran Abs Auto 0.02 0.00-0.03 X10*3/uL Lymphocytes Absolute Auto 0.9 1.2-4.9 X10*3/u L Monocytes Absolute Auto 0.5 0.1-1.2 X10*3/uL Eosinophils Absolute Auto 0.1 0.0-0.4 X10*3/u L Basophils Absolute Auto 0.0 0.0-0.2 X10*3/uL NRBC Abs Auto 0.000 0.0-0.012 X10*3/uL Prothrombin Time INR Reviewed date:09/27/2024 11:17:44 PM Interpretation: Performing Lab:[address] [id number] Notes/Report: Prothrombin Time 11.5 10.9-12.4 SEC INTERNATIONAL NORM RATIO 1.0 0.9-1.1 INTERNATIONAL NORMALIZED RATIO (INR) REFERENCE RANGES Reference Range For patients not on anticoagulant therapy: 0.9 - 1.1 INR ranges for oral anticoagulant therapy: For prevention and treatment of venous thrombosis and pulmonary embolism: 2.0 - 3.0 For acute myocardial infarction with aspirin therapy: 2.0 - 3.0 For acute myocardial infarction without aspirin therapy: 3.0 - 4.0 For patients with mechanical prosthetic heart valves: 2.5 - 3.5 Liver Panel Reviewed date:09/27/2024 11:17:35 PM Interpretation: Performing Lab:[address] [phone] Notes/Report: Bilirubin Total 0.9 0.0-1.0 mg/dL Bilirubin Direct 0.3 0.0-0.5 mg/dL Aspartate Amino Transferase 23 5-37 U/L Alanine Aminotransferase 23 0-40 U/L Total Protein 7.4 6.5-8.0 g/dL Albumin Level 4.4 3.5-5.0 g/dL Alkaline Phosphatase 88 39-117 U/L Alpha Fetoprotein Reviewed date:10/09/2024 09:14:03 AM Interpretation: Performing Lab:[address] [address] Notes/Report: Alpha Fetoprotein 1.6 <6.1 ng/mL This test was performed using the Artur Burrton chemiluminescent method. Values obtained from different assay methods cannot be used interchangeably. AFP levels, regardless of value, should not be interpreted as absolute evidence of the presence or absence of disease. THIS TEST WAS PERFORMED AT: [facility] [address] [place] [phone] VIKAS CONRAD MD Liver Fibrosis Pnl Reviewed date:10/09/2024 09:14:14 AM Interpretation: Performing Lab:[facility], [address] [place] [phone] Notes/Report: Liver Fibrosis Score 0.70 Liver Fibrosis Stage F3 Liver Fibrosis Interpretation SEE NOTE advanced fibrosis Fibro Test Score (f) Metavir Score f>=0 and f<=0.21 : F0 (no fibrosis) f>0.21 and f<=0.27 : F0-F1 (no fibrosis) f>0.27 and f<=0.31 : F1 (minimal fibrosis) f>0.31 and f<=0.48 : F1-F2 (minimal fibrosis) f>0.48 and f<=0.58 : F2 (moderate fibrosis) f>0.58 and f<=0.72 : F3 (advanced fibrosis) f>0.72 and f<=0.74 : F3-F4 (advanced fibrosis) f>0.74 and f<=1.00 : F4 (severe fibrosis) Nec Inflam Act Score 0.10 Nec Inflam Act Grade A0 Nec Inflam Act Interpretation SEE NOTE no activity ActiTest Score (a) Metavir Score a>=0 and a<=0.17 : A0 (no activity) a>0.17 and a<=0.29 : A0-A1 (no activity) a>0.29 and a<=0.36 : A1 (minimal activity) a>0.36 and a<=0.52 : A1-A2 (minimal activity) a>0.52 and a<=0.60 : A2 (significant activity) a>0.60 and a<=0.62 : A2-A3 (significant activity) a>0.62 and a<=1.00 : A3 (severe activity) KYP-Kolmx-5-Macroglobulin 288 106-279 mg/dL FIB-Haptoglobin 83 43-212 mg/dL FIB-Apolipoprotein A1 149 94-176 mg/dL FIB-Total Bilirubin 0.6 0.2-1.2 mg/dL FIB-GGT 52 3-70 U/L FIB-ALT 16 9-46 U/L Reference ID [id number] Footnote SEE NOTE The reliability of results is dependent on compliance with the preanalytical and analytical conditions recommended by [employer]. The tests have to be deferred for: acute hemolysis, acute hepatitis, acute inflammation, extra hepatic cholestasis. The advice of a specialist should be sought for interpretation in chronic hemolysis and Gilbert's syndrome. The test interpretation is not validated in liver transplant patients. Isolated extreme values of one of the components should lead to caution in interpreting the results. In case of discordance between a biopsy result and a test, it is recommended to seek the advice of a specialist. The causes of these discordances could be due to a flaw of the test or to a flaw in the biopsy: i.e. a liver biopsy has a 33% variability rate for one fibrosis stage. FibroTest is interpretable for chronic hepatitis B and C, alcoholic and non alcoholic steatosis. ActiTest is interpretable for chronic hepatitis B and C. The performance characteristics have been determined by [facility]. It has not been cleared or approved by the U.S. Food and Drug Administration. Performance characteristics refer to the analytical performance of the test. Scurri, the associated logo, [employer] and all associated [employer] [place] huizar are the registered trademarks of [employer] [place]. All third constitution party huizar - (R) and (TM) - are the property of their respective owners. (C) [id number] [employer] [place] [employer]. All rights reserved. THIS TEST WAS PERFORMED AT: [employer] [facility] [address] [place] [address] ANAY NUNEZ MD,PHD,DIOR US abdomen comp w elastograp hy (Not yet reviewed by provider) Interpretation: Performing Lab: Notes/Report: [address] [address] Ultrasound Report Signed Patient: Guanaco Cheema MR#: [id number] [birth year] : 1945 Acct:[id number] Age/Sex: 79 / M ADM Date: 09/27/24 Loc: HO.US Attending Dr: Guanaco Mills MD Ordering Physician: Guanaco Mills MD Date of Service: 09/27/24 Procedure(s): US abdomen comp w elastography Accession Number(s): [id number] cc: Janel Pitts MD; Guanaco Mills MD EXAMINATION: US COMPLETE ABDOMEN WITH LIVER ELASTOGRAPHY CLINICAL INFORMATION: History of hepatitis C. COMPARISON: 02/14/2019. No prior elastography. TECHNIQUE: Real-time imaging of the abdominal viscera. Noninvasive ultrasound liver fibrosis assessment is performed using Teikon ElastPQ point quantification shear wave elastography (pSWE) with a C5-2 MHz transducer. Multiple elastography samples are obtained. FINDINGS: PANCREAS: The visualized pancreatic head and body are normal in appearance. The remainder of the pancreas is obscured from visualization by the overlying bowel gas. ABDOMINAL AORTA: No aortic aneurysm is seen. Distal aspect is obscured by gas. INFERIOR VENA CAVA: Visualized portions are normal. LIVER: Liver is mildly enlarged, and demonstrates diffusely increased echogenicity. Focal fatty sparing abutting the gallbladder fossa. Normal contour. There is an echogenic oval lesion in the right hepatic lobe measuring 5.3 x 4.9 x 4.4 cm, not previously seen nor described. No additional lesions. No intra or extrahepatic biliary dilatation. The right lobe measures 19.6 cm in length. The left lobe measures 7.9 cm in length. Portal flow is towards the liver (hepatopetal). Shear wave liver elastography median stiffness is 1.66 m/s (reference: normal median stiffness is 1.3 m/s or less). IQR/median stiffness to assess sampling precision is 0.08 (reference: good quality data set is IQR/median stiffness of 0.15 or less). GALLBLADDER: The gallbladder is physiologically distended without evidence of stones, sludge, polyps, wall thickening or pericholecystic fluid. COMMON BILE DUCT: Normal in caliber measuring 0.6 cm in diameter. RIGHT KIDNEY: No hydronephrosis. No renal calculi or focal parenchymal lesions. The kidney measures 13.2 cm in maximum dimension. LEFT KIDNEY: No hydronephrosis. No renal calculi or focal parenchymal lesions. The kidney measures 13.1 cm in maximum dimension. SPLEEN: Unremarkable. The spleen measures 12.2 cm in maximum dimension. There are calcified granulomata. FREE FLUID: None seen. US/US abdomen comp w elastography IMPRESSION: 1. Mild hepatomegaly with diffusely increased hepatic echogenicity, likely steatosis. Focal fatty sparing abutting the gallbladder fossa. There is an oval echogenic right hepatic lobe lesion measuring 5.3 x 4.9 x 4.4 cm, indeterminate, but suggestive of a hemangioma. This was not previously seen or described. Liver protocol MRI recommended for further evaluation. 2. Liver elastography: In the absence of other known clinical signs, measurements rule out compensated advanced chronic liver disease. If there are known clinical signs, further testing may be needed for confirmation. 3. Normal gallbladder and bile ducts. 4. Remainder of the exam is normal. REFERENCE: Society of Radiologists in Ultrasound Liver Stiffness Thresholds (2019): LIVER STIFFNESS THRESHOLDS: *Liver Stiffness equal or less than 1.3 m/s: High probability of being normal. *Liver Stiffness less than 1.7 m/s: In the absence of other known clinical signs, rules out compensated advanced chronic liver disease. *Liver Stiffness 1.7-2.1 m/s: Suggestive of compensated advanced chronic liver disease but need further test for confirmation. *Liver Stiffness over 2.1 m/s: Rules in compensated advanced chronic liver disease. *Liver Stiffness over 2.4 m/s: Suggestive of clinically significant portal hypertension. QUALITY OF DATA SET: *IQR/Median value equal or less than 0.15 implies a quality data set. *IQR/Median value over 0.15 implies a poor quality data set. SIGNIFICANT CHANGE FROM PRIOR EXAM: Significant change if liver stiffness measurement is 10% or greater from prior exam. OTHER CONSIDERATIONS: The stage of liver fibrosis may be overestimated in the setting of acute hepatitis, liver inflammation, elevated liver function tests, hepatic vascular congestion, obstructive cholestasis, non-fasting state, and infiltrative diseases such as amyloidosis and lymphoma. In some patients with NAFLD, the liver stiffness thresholds for compensated advanced chronic liver disease may be lower. In causes other than viral hepatitis and NAFLD, liver stiffness thresholds are not well established. Electronically signed by: Fabian Fry MD 09/27/2024 11:38 AM EDT Dictated By: Fabian Fry MD Signed By: <Electronically signed by Fabian Fry MD in OV> 09/27/24 1138 DD/ 1039 TD/TT: 09/27/24 1107 Transportation Aid: Reason For Referral No Information Medications Medication SIG (Take, Route, Frequency, Duration) Notes Start Date End Date Status Vitamin D 25 MCG (1000 UT) 1 tablet Oral ly Once a day for 30 day(s) Active Percocet 5-325 MG 1 tablet as needed O rally every 6 hrs Active Vitamin B12 100 MCG as directed Orally Active Sertraline HCl 50 MG 1 tablet Orally Once a day Active CeleBREX 100 MG 1 capsule with food Orally Once a day for 30 day(s) Active Atenolol 100 MG 1 tablet Orally Once a day 014 Active Lisinopril 40 MG 1 tablet Orally Once a day 2013 Active Immunizations Vaccine Route Administration Date Status Comme nts Influenza Unknown 02/05/2019 Administered Problems Problem Type SNOMED Code ICD Code Onset Dates Problem Status W/U Status Risk Notes Problem 482058618 Encounter for screening for malignant neoplasm of colon (Z12.11) Active confirmed Problem 296973314 Family history of colon cancer (Z80.0) Active confirmed Problem Abnormal liver ultrasound (R93.2) Active confirmed Problem 234377081142446 Pre-procedural examination (Z01.818) Active confirmed Problem 96951203570466 History of hepatitis C (Z86.19) Active confirmed Problem History of adenomatous polyp of colon (247855858) History of adenomatous polyp of colon (Z86.0101) Active confirmed Vital Signs Blood pressure diastolic 77 mm Hg 08/14/2024 Height 70 in 08/14/2024 Blood pressure systolic 111 mm Hg 08/14/2024 Weight 229 lbs 08/14/2024 BMI 32.85 kg/m2 08/14/2024 Procedures Procedure Date Ordered Date Performed Result Body Sit e COLONOSCOPY 08/14/2024 N/A Encounters Encounter Location Date Provider Diagnosis [facility] [address] [place] [address] 08/14/2024 Guanaco Mills Family history of colon cancer Z80.0 ; Pre-procedural examination Z01.818 ; Encounter for screening for malignant neoplasm of colon Z12.11 ; History of hepatitis C Z86.19 and History of adenomatous polyp of colon Z86.0101 [facility] [address] [place] [address] 09/27/2024 Guanaco Mills Abnormal liver ultrasound R93.2 and History of hepatitis C Z86.19 Assessments Encounter Date Diagnosis (ICD Code) Assessment Notes Treatment Notes Treatment Clinical Notes Section Notes 08/14/2024 Family history of colon cancer (ICD-10 - Z80.0) Overall, Nilay appears well. I did recommend a follow-up colonoscopy for further screening purposes given his history of tubular adenomas, his family history of 2 siblings with colon cancer, and his last colonoscopy being over 5 years ago. We did review the rationale for this in regard to colon cancer prevention. Full consent has been attained from him for this, including risks of bleeding and perforation. The procedure will be done with monitored anesthesia care. He appears well in regard to his previous history of hepatitis C. He certainly does not show any signs nor have any symptoms of liver disease at this time. However, I will have him undergo a follow-up abdominal ultrasound that as it has been over 5 years since his last study. I will also have him do the below laboratories including an alpha-fetoprotei n level as well. I do not think he needs another hepatitis C viral load given his negative level in 2019 and the fact that he was treated for the infection way back in 2003. Nilay was comfortable with this plan. Thank you again for allowing me to participate in Nilay's care. I shall continue to keep you advised of his progress. 08/14/2024 Pre-procedural examination (ICD-10 - Z01.818) Overall, Nilay appears well. I did recommend a follow-up colonoscopy for further screening purposes given his history of tubular adenomas, his family history of 2 siblings with colon cancer, and his last colonoscopy being over 5 years ago. We did review the rationale for this in regard to colon cancer prevention. Full consent has been attained from him for this, including risks of bleeding and perforation. The procedure will be done with monitored anesthesia care. He appears well in regard to his previous history of hepatitis C. He certainly does not show any signs nor have any symptoms of liver disease at this time. However, I will have him undergo a follow-up abdominal ultrasound that as it has been over 5 years since his last study. I will also have him do the below laboratories including an alpha-fetoprotei n level as well. I do not think he needs another hepatitis C viral load given his negative level in 2019 and the fact that he was treated for the infection way back in 2003. Nilay was comfortable with this plan. Thank you again for allowing me to participate in Nilay's care. I shall continue to keep you advised of his progress. 09/27/2024 Abnormal liver ultrasound (ICD-10 - R93.2) 09/27/2024 History of hepatitis C (ICD-10 - Z86.19) 08/14/2024 Encounter for screening for malignant neoplasm of colon (ICD-10 - Z12.11) Overall, Nilay appears well. I did recommend a follow-up colonoscopy for further screening purposes given his history of tubular adenomas, his family history of 2 siblings with colon cancer, and his last colonoscopy being over 5 years ago. We did review the rationale for this in regard to colon cancer prevention. Full consent has been attained from him for this, including risks of bleeding and perforation. The procedure will be done with monitored anesthesia care. He appears well in regard to his previous history of hepatitis C. He certainly does not show any signs nor have any symptoms of liver disease at this time. However, I will have him undergo a follow-up abdominal ultrasound that as it has been over 5 years since his last study. I will also have him do the below laboratories including an alpha-fetoprotei n level as well. I do not think he needs another hepatitis C viral load given his negative level in 2019 and the fact that he was treated for the infection way back in 2003. Nilay was comfortable with this plan. Thank you again for allowing me to participate in Nilay's care. I shall continue to keep you advised of his progress. 08/14/2024 History of hepatitis C (ICD-10 - Z86.19) Overall, Nilay appears well. I did recommend a follow-up colonoscopy for further screening purposes given his history of tubular adenomas, his family history of 2 siblings with colon cancer, and his last colonoscopy being over 5 years ago. We did review the rationale for this in regard to colon cancer prevention. Full consent has been attained from him for this, including risks of bleeding and perforation. The procedure will be done with monitored anesthesia care. He appears well in regard to his previous history of hepatitis C. He certainly does not show any signs nor have any symptoms of liver disease at this time. However, I will have him undergo a follow-up abdominal ultrasound that as it has been over 5 years since his last study. I will also have him do the below laboratories including an alpha-fetoprotei n level as well. I do not think he needs another hepatitis C viral load given his negative level in 2019 and the fact that he was treated for the infection way back in 2003. Nilay was comfortable with this plan. Thank you again for allowing me to participate in Nilay's care. I shall continue to keep you advised of his progress. 08/14/2024 History of adenomatous polyp of colon (ICD-10 - Z86.0101) Overall, Nilay appears well. I did recommend a follow-up colonoscopy for further screening purposes given his history of tubular adenomas, his family history of 2 siblings with colon cancer, and his last colonoscopy being over 5 years ago. We did review the rationale for this in regard to colon cancer prevention. Full consent has been attained from him for this, including risks of bleeding and perforation. The procedure will be done with monitored anesthesia care. He appears well in regard to his previous history of hepatitis C. He certainly does not show any signs nor have any symptoms of liver disease at this time. However, I will have him undergo a follow-up abdominal ultrasound that as it has been over 5 years since his last study. I will also have him do the below laboratories including an alpha-fetoprotei n level as well. I do not think he needs another hepatitis C viral load given his negative level in 2019 and the fact that he was treated for the infection way back in 2003. Nilay was comfortable with this plan. Thank you again for allowing me to participate in Nilay's care. I shall continue to keep you advised of his progress. Plan Of Treatment Pending Test Test Name Order Date COLONOSCOPY 08/14/2024 BUN 09/27/2024 LIVER PROFILE 08/14/2013 LIVER PROFILE 08/14/2024 CBC w DIFF 08/14/2024 ALPHA-FETOPROTEIN,TUMOR MARKER 4 ALPHA-FETOPROTEIN,TUMOR MARKER 9 ALPHA-FETOPROTEIN,TUMOR MARKER 5 HEPATITIS C VIRAL LOAD 02/06/2019 MRI ABD W&WO CONTRAST 09/27/2024 Prothrombin Time INR 08/14/2024 Creatinine 09/27/2024 Liver Fibrosis Pnl 08/14/2024 US abdomen comp w elastography 5 US abdomen comp w elastography 5 Future Test Test Name Order Date COLONOSCOPY 08/14/2013 COLONOSCOPY 02/06/2019 Next Appt Details Provider Name:Guanaco Mills , 11/12/2024 07:30:00 AM, [address] [place] [address] , [place], [place], [phone], Insurance Providers Payer Name Payer Address Payer Phone Subscriber Number Group Number Insured Name Patient Relationship to Insured Coverage Start Date Coverage End Date [facility] [address] [place], [place] [id number] GUANACO CHEEMA Self - patient is the insured Medical (General) History Medical History History ICD Code Colonoscopy in 1998, 2003, 10/2008, 4--all neg for adenomas Diverticulosis Hepatitis C--treated success fully in 2003 with 1 year of pegylaed IF and Ribavirin--liver bx in 1994 with some inflammation, but no sig fibrosis--- his hepatitis C viral load was negative in 2006 and 2018 Hypertension Denies [place],DM,CVA,Lung disease,renal dise ase Arthritis Colonoscopy 04/2019 2 tubular adenomas re moved Surgical History Surgery Date(Month/Year) knee replacements bilateral approx 2015 carpal tunnel on right wrist elbow finger surgery carpal tunnel left wrist surgery for an umbilical hernia
== END 2024-10-19 12:59 | disposition home or self-care (01) ==
LOC: HO.HMCH 11:35
PROVIDERS: PCP Internal Medicine; Visit Provider Internal Medicine
DX: J43.1 Panlobular emphysema (principal); Z01.818 Encounter for other preprocedural examination; E66.9 Obesity, unspecified; Z68.30 Body mass index [BMI] 30.0-30.9, adult; H26.9 Unspecified cataract; R73.01 Impaired fasting glucose; I10 Essential (primary) hypertension; F41.1 Generalized anxiety disorder; M89.49 Other hypertrophic osteoarthropathy, multiple sites

== ENCOUNTER → 2024-10-19 11:34 | Outpatient (BNVA) | payer MEDICARE, SELFPAY | PROVIDERS: PCP Internal Medicine; Visit Provider Internal Medicine | DX: Z01.818 Encounter for other preprocedural examination (principal); J43.1 Panlobular emphysema; H26.9 Unspecified cataract; E66.9 Obesity, unspecified; R73.01 Impaired fasting glucose; I10 Essential (primary) hypertension; F41.1 Generalized anxiety disorder; M89.49 Other hypertrophic osteoarthropathy, multiple sites; I73.9 Peripheral vascular disease, unspecified; M17.9 Osteoarthritis of knee, unspecified | CPT/HCPCS: 96127; 99212 ==

== ENCOUNTER 2024-10-20 09:15 | Outpatient (REF) | payer MEDICARE, SELFPAY ==
[2024-10-20 09:37] LABS: MANUAL DIFF FLAG NO
[2024-10-20 10:17] LABS: Hematocrit 43.9 % (42.0-52.0); Hemoglobin 14.3 g/dl (14.0-18.0); Imm Gran Abs Auto 0.02 X10*3/uL (0.00-0.03); Imm Gran Pct Auto 0.4 % (0.0-0.4); Lymphocytes Absolute Auto 1.1 X10*3/uL (1.2-4.9); Mean Corpuscular HGB Conc 32.6 g/dl (31.0-36.0); Mean Corpuscular Hemoglobin 28.9 pg (27.0-33.0); Mean Corpuscular Volume 88.9 fL (80.0-98.0); NRBC Abs Auto 0.000 X10*3/uL (0.0-0.012); NRBC Pct Auto 0.0 /100WBC (0.0-0.2); Platelet Count 157 X10*3/uL (160-400); Red Blood Count 4.94 X10*6/uL (4.60-5.80); White Blood Count 5.2 X10*3/uL (4.8-10.8)
[2024-10-20 11:34] LABS: Anion Gap 13 (12-20); Blood Urea Nitrogen 20 mg/dL (9-16); Calcium 9.0 mg/dL (8.4-10.2); Carbon Dioxide 23 mmol/L (22-29); Chloride 110 mmol/L (96-108); Estimated Glomerular Filt Rate > 60; Potassium 3.8 mmol/L (3.3-5.1); Sodium 142 mmol/L (135-145)
== END 2024-10-20 09:16 | disposition home or self-care (01) ==
LOC: HO.LAB 09:15
PROVIDERS: PCP Internal Medicine; Visit Provider Internal Medicine
DX: Z01.818 Encounter for other preprocedural examination (principal)
CPT/HCPCS: 36415; 80048; 85025

== ENCOUNTER → 2024-10-25 10:08 | Outpatient (REF) | payer MEDICARE, SELFPAY ==
--- NOTE | 2024-10-25 10:12 | ECG_ITS ---
Test Reason : pre-op Blood Pressure : */* mmHG Vent. Rate : 52 BPM Atrial Rate : 52 BPM P-R Int : 226 ms QRS Dur : 84 ms QT Int : 426 ms P-R-T Axes : -27 9 3 degrees QTcB Int : 396 ms Sinus bradycardia with 1st degree A-V block Otherwise normal ECG When compared with ECG of 23-Feb-2022 15:40, No significant change was found Referred By: Janel Pitts Electronically Signed By: NIRAV SPANGLER
--- OUTSIDE RECORDS SUMMARY | 2024-10-25 10:35 | XMS_ITS | Patient Health Record ---
Author Organization [facility] Address [address] [place] [address] Care Team Providers Care Director Of Technology Name Role Phone Janel Pitts MD Primary Care Provider Guanaco Bansal Unavailable [phone] Allergies No Known Allergies Results Component Value Reference Range Notes Complete Blood Count Auto Di ff Reviewed date:09/27/2024 11:18:00 PM Interpretation: Performing Lab:[facility], [address] [place] [phone] Notes/Report: White Blood Count 6.4 4.8-10.8 X10*3/uL [...] INR Reviewed date:09/27/2024 11:17:44 PM Interpretation: Performing Lab:[address] [address] Notes/Report: Prothrombin Time 11.5 10.9-12.4 SEC [employer] [...] Panel Reviewed date:09/27/2024 11:17:35 PM Interpretation: Performing Lab:[address] [address] Notes/Report: Bilirubin Total 0.9 0.0-1.0 mg/dL Bilirubin Direct 0.3 0.0-0.5 mg/dL Aspartate Amino Transferase 23 5-37 U/L Alanine Aminotransferase 23 0-40 U/L Total Protein 7.4 6.5-8.0 g/dL Albumin Level 4.4 3.5-5.0 g/dL Alkaline Phosphatase 88 39-117 U/L Alpha Fetoprotein Reviewed date:10/09/2024 09:14:03 AM Interpretation: Performing Lab:[address] [address] Notes/Report: Alpha Fetoprotein 1.6 <6.1 ng/mL This test was performed using the Artur Assumption chemiluminescent method. Values obtained from different assay methods cannot be used interchangeably. AFP levels, regardless of value, should not be interpreted as absolute evidence of the presence or absence of disease. THIS TEST WAS PERFORMED AT: [facility] [address] [place] [id number] VIKAS CONRAD MD Liver Fibrosis Pnl Reviewed date:10/09/2024 09:14:14 AM Interpretation: Performing Lab:[facility], [address] [place] [phone] Notes/Report: Liver Fibrosis Score 0.70 Liver Fibrosis [...] a>0.62 and a<=1.00 : A3 (severe activity) RID-Utnta-2-Macroglobulin 288 106-279 mg/dL FIB-Haptoglobin 83 43-212 mg/dL FIB-Apolipoprotein A1 149 94-176 mg/dL FIB-Total Bilirubin 0.6 0.2-1.2 mg/dL FIB-GGT 52 3-70 U/L FIB-ALT 16 9-46 U/L Reference ID [id number] Footnote SEE NOTE The reliability of results [...] The performance characteristics have been determined by [facility]. It has not been cleared or approved by the U.S. Food and Drug Administration. Performance characteristics refer to the analytical performance of the test. [employer], the associated logo, GTI and all associated [employer] huizar are the registered trademarks of [employer]. All third constitution party huizar - (R) and (TM) - are the property of their respective owners. (C) 1733-7584 [employer]. All rights reserved. THIS TEST WAS PERFORMED AT: [employer] [facility] [address] [place] [address] ANAY NUNEZ MD,PHD,DIOR US abdomen comp w elastograp hy (Not yet reviewed by provider) Interpretation: Performing Lab: Notes/Report: [address] [address] Ultrasound Report Signed Patient: Guanaco Cheema MR#: [id number] : 1945 Acct:[id number] Age/Sex: 79 / M ADM Date: 09/27/24 Loc: HO.US Attending Dr: Guanaco Mills MD Ordering Physician: Guanaco Mills MD Date of Service: 09/27/24 Procedure(s): US abdomen comp w elastography Accession Number(s): [id number] cc: Janel Pitts MD; Guanaco Mills MD EXAMINATION: US COMPLETE ABDOMEN WITH LIVER ELASTOGRAPHY CLINICAL INFORMATION: History of hepatitis C. COMPARISON: 02/14/2019. No prior elastography. TECHNIQUE: Real-time imaging of the abdominal viscera. Noninvasive ultrasound liver fibrosis assessment is performed using [employer] ElastPQ point quantification shear wave elastography (pSWE) [...] 09/27/24 1138 DD/ 1039 TD/TT: 09/27/24 1107 Metallurgical Engineer: Reason For Referral No Information Medications Medication [...] Problem Status W/U Status Risk Notes Problem 068882398 Encounter for screening for malignant neoplasm of colon (Z12.11) Active confirmed Problem 292912467 Family history of colon cancer (Z80.0) Active confirmed Problem Abnormal liver ultrasound (R93.2) Active confirmed Problem 854849772647961 Pre-procedural examination (Z01.818) Active confirmed Problem 34814925001276 History of hepatitis C (Z86.19) Active confirmed Problem History of adenomatous polyp of colon (461584999) History of adenomatous polyp of colon (Z86.0101) Active confirmed Vital Signs Blood pressure diastolic 77 mm Hg 08/14/2024 Height 70 in 08/14/2024 Blood pressure systolic 111 mm Hg 08/14/2024 Weight 229 lbs 08/14/2024 BMI 32.85 kg/m2 08/14/2024 Procedures Procedure Date Ordered Date Performed Result Body Sit e COLONOSCOPY 08/14/2024 N/A Encounters Encounter Location Date Provider Diagnosis [facility] [address] [place] [address] 08/14/2024 Guanaco Mills Family history of colon cancer Z80.0 ; Pre-procedural examination Z01.818 ; Encounter for screening for malignant neoplasm of colon Z12.11 ; History of hepatitis C Z86.19 and History of adenomatous polyp of colon Z86.0101 [facility] [address] [place] [address] 09/27/2024 Guanaco Mills Abnormal liver ultrasound R93.2 [...] Provider Name:Guanaco Mills , 11/12/2024 07:30:00 AM, [address] [place] [address] , [place], [place], [phone], Insurance Providers Payer Name Payer Address Payer Phone Subscriber Number Group Number Insured Name Patient Relationship to Insured Coverage Start Date Coverage End Date [facility] [address] [place], [place] [id number] GUANACO CHEEMA Self - patient is the insured Medical (General) History Medical History History ICD Code Colonoscopy in 1998, 2003, 10/2008, 4--all neg for adenomas Diverticulosis Hepatitis C--treated success fully in 2003 with 1 year of pegylaed IF and Ribavirin--liver bx in 1994 with some inflammation, but no sig fibrosis--- his hepatitis C viral load was negative in 2006 and 2018 Hypertension Denies NM,DM,CVA,Lung disease,renal dise ase Arthritis Colonoscopy 04/2019 2 tubular adenomas re moved Surgical History Surgery Date(Month/Year) knee replacements bilateral approx 2015 carpal tunnel on right wrist elbow finger surgery carpal tunnel left wrist surgery for an umbilical hernia
--- OUTSIDE RECORDS SUMMARY | 2024-10-25 10:35 | XMS_ITS | Data Portability ---
Author Organization [facility] Dilan Arredondo Mdvera [facility] Address [address] [place] [address] Care Team Providers Care Geologist Petroleum Name Role Phone CEPATTI Primary Care Provider [phone] Assessment Encounter Date Assessment Date Assessment LastModified [...] Name and Address Organization Details Recorded Time Idiopathi c osteoarth ritis 762878448 Active 2015 Problem Code: M17.12; Problem Code Type: ICD-10; Status: 'A'; Not Available [facility] 11:43:45 Nontrauma tic complete rupture of rotator cuff of left shoulder 524015395444 9102 Active 2024 Lai Frias PA-C [address], [place], [address] , [facility] 5 07:41:48 Problem Notes None recorded. Procedures Surgical History Date Name Laterality Status Provider Name and Address Organization Details Recorded Time 5 Sports Shoulder completed Lai Frias PA-C [address], [place], [address], [facility] 09/06/2024 07:41:22 4 Sports Shoulder completed Lai Frias PA-C [address], [place], [address], [facility] 06/27/2023 11:04:48 Imaging Results [...] Updated DateTime 06/27/2023 180.34 cm 31.8 kg/m2 168827.06 g RAZIA ROMANO [facility] 06/27/2023 10:41:11 Date Recorded Body height Body mass index (BMI) Body weight Provider Name and Address Organization Details Last Updated DateTime 09/05/2024 180.34 cm 31.8 kg/m2 218559.06 g Florence Macias [facility] 09/05/2024 14:08:21 Social History None recorded. Functional Status None recorded. Mental Status None recorded. Family History Nothing Reported. Medical History No medical history recorded. Past Encounters Encounter ID Performer Location Encounter Start Date Encounter Closed Date Diagnosis/Indication Diagnosis SNOMED-CT Code Diagnosis ICD10 Code Diagnosis Note [id number] ABRAHAM Acevedo [address] [place] [address] 06/27/2023 10:16:04 06/27/2023 11:29:42 Full thickness rotator cuff tear 872151486 M75.258 [id number] Lai Frias PA-C [facility] [address] [place] [address] 09/05/2024 13:50:47 09/14/2024 13:36:17 Nontraumatic complete rupture of rotator cuff of left shoulder 2562990737 324524 M75.122 Health Concerns Section Related Observation LastModified by Organization Detai ls LastModified Time None Recorded Concern Status LastModified by Organization Details LastModified Time None Recorded Advance Directives Directive None Recorded Payers Insurance Date Sequence Insurance Name Policy Number Policy Hart Covered Member ID Hart Member ID Guarantor Name 09/14/2024 1 [facility] [id number] Regino Noel [id number] Regino Noel Notes Date Note Type [...] were reviewed per intake sheet. ABRAHAM Acevedo [address] [address], [place], [address], [facility] 06/27/2023 11:05:43 09/05/2024 text/html [...] require going forward. ABRAHAM Acevedo [address], [place], [address], [facility] 09/06/2024 07:42:38
== END ==
LOC: HO.CARD 10:08
PROVIDERS: PCP Internal Medicine; Visit Provider Internal Medicine
DX: Z01.818 Encounter for other preprocedural examination (principal)
CPT/HCPCS: 93005

== ENCOUNTER → 2024-10-25 10:12 | Outpatient (BNV) | payer MEDICARE, SELFPAY | PROVIDERS: PCP Internal Medicine; Visit Provider Internal Medicine | DX: I44.0 Atrioventricular block, first degree (principal) | CPT/HCPCS: 93010 ==

== ENCOUNTER 2024-10-28 12:50 | Outpatient (REF) | payer MEDICARE, SELFPAY ==
--- NOTE | ~2024-10-28 | MR_ITS ---
EXAMINATION: MR ABDOMEN WITHOUT THEN WITH IV CONTRAST HISTORY: ABNORMAL LIVER US H/O HEP C COMPARISON: Correlation is made with an abdominal ultrasound dated 09/27/2024. TECHNIQUE: Axial in and out of phase T1-weighted gradient echo, axial diffusion weighted, and axial and coronal HASTE T2 with fat saturation images were obtained through the abdomen. Subsequently, fat suppressed axial and coronal T1-weighted images were obtained after the intravenous administration of 10 mL Gadavist. FINDINGS: Liver: There is no loss of signal intensity in the liver on opposed phase imaging to suggest steatosis. A lesion is noted corresponding to the abnormality seen on ultrasound which is described below: Lesion #: 1 Location: segment VIII Size: 5.3 x 5.4 x 5.3 cm T2 signal intensity: Heterogeneous with multiple hyper and hypointense areas noted. Arterial Phase Hyperenhancement (APHE): yes Additional Major Features Enhancing Capsule: yes Nonperipheral washout: no Threshold Growth: yes, new lesion LI-RADS Category: LR-5 Definitely HCC The hepatic and portal veins are patent. There is arterial hyperenhancement distal to the lesion which likely represents a transient hepatic intensity difference (THID) secondary to the mass. There is no intrahepatic biliary dilatation. Gallbladder/biliary tree: No gallstones are identified. The common bile duct is normal in caliber. No intraluminal filling defects are identified to suggest choledocholithiasis. Spleen: The spleen is unremarkable. Pancreas: The pancreas is unremarkable. There is no enhancing pancreatic mass. The pancreatic duct is normal in caliber. Adrenals: The adrenal glands are unremarkable. Kidneys: The right kidney is unremarkable. There are tiny cysts in the left kidney. There is no hydronephrosis. Lymph nodes: There is no retroperitoneal lymphadenopathy in the upper abdomen. Fluid: There is no ascites in the upper abdomen. Visualized bowel: There is a large hiatal hernia. The visualized small and large bowel loops are unremarkable in appearance. Visualized bones: The visualized bones demonstrate normal marrow signal intensity. MR/MR abdomen wo/w con IMPRESSION: 5.3 x 5.4 x 5.3 cm mass in segment VIII of the liver corresponding to the abnormality seen on ultrasound. This demonstrates a LI-RADS 5 lesion, compatible with hepatocellular carcinoma. Findings were communicated to Dr. Regino Mills by secure text message on 10/29/2024 at 8:12 AM. Electronically signed by: Regino Storm MD 10/29/2024 08:13 AM EDT
== END 2024-10-28 12:51 | disposition home or self-care (01) ==
LOC: HO.MRI 12:50
PROVIDERS: PCP Internal Medicine; Visit Provider Internal Medicine
DX: R93.2 Abnormal findings on diagnostic imaging of liver and biliary tract (principal); Z86.19 Personal history of other infectious and parasitic diseases
CPT/HCPCS: 74183; A9585

== ENCOUNTER → 2024-10-28 12:55 | Outpatient (BNV) | payer MEDICARE, SELFPAY | PROVIDERS: PCP Internal Medicine; Visit Provider Radiology Diagnostic Radiology | DX: R93.2 Abnormal findings on diagnostic imaging of liver and biliary tract (principal) | CPT/HCPCS: 74183 ==

== ENCOUNTER 2024-11-12 06:36 | Day surgery (SDC) | payer MEDICARE, SELFPAY ==
[2024-11-08 14:39] VITALS: BMI 32.9
--- NOTE | 2024-11-09 08:18 | HO.ANESPROP2 ---
Documented by User: Nilsa Maier NP 11/09/24 08:20 HPI - Anesthesia Eval Consult details Narrative: 79yo M for Colonoscopy PMFSH Active Problems Active Problems: All Active Problems Cataract (Acute) Preop exam for internal medicine (Acute) Decreased urine stream (Acute) Tubular adenoma of colon (Acute) Annual physical exam (Acute) Right shoulder pain (Acute) Impaired fasting blood sugar (Acute) Hamstring tendinitis (Acute) COVID-19 virus infection (Acute) Impacted cerumen of both ears (Acute) Encounter for subsequent annual wellness visit (AWV) in Medicare patient (Acute) Generalized anxiety disorder (Acute) Erectile dysfunction (Acute) COPD (chronic obstructive pulmonary disease) (Acute) Peripheral vascular disease (Acute) Obesity (BMI 30-39.9) (Acute) Osteoarthritis (Acute) Carpal tunnel syndrome (Acute) Hypertension (Acute) Past Medical History Medical History Elevated blood sugar Fatty liver Hemorrhoids Diverticular disease Hepatitis C COPD (chronic obstructive pulmonary disease) Peripheral vascular disease Obesity (BMI 30-39.9) Osteoarthritis Pernicious anemia Anxiety Erectile dysfunction Carpal tunnel syndrome Hypertension Family History Family History Father No problems noted. Mother Colon cancer Hypertension Brother Colon cancer Sister Colon cancer Surgical History Surgical History History of surgery H/O colonoscopy History of nasal surgery History of knee replacement procedure of left knee History of knee replacement procedure of right knee History of arthroscopy of right knee History of removal of cyst History of carpal tunnel release History of tonsillectomy History of umbilical hernia repair Social History Social History Housing: House Alcohol intake: former Patient Tobacco Use Status: Former Tobacco user Tobacco use type: Cigarette Years Smoked: quit 1995 e-Cigarette/Vaping Use: Never Used Second Hand Smoke Exposure: No Use of substances other than those prescribed or required for medical reasons: No Are you DNR?: No Advance Directives: No Advance Directives Information Provided: Yes Poor oral hygiene: No service: Yes Current occupational status: retired Cognitive needs: No Hearing needs: No Vision needs: Yes Meds Allergies Allergy/AdvReac Type Severity Reaction Status Date / Time No Known Allergies Allergy Verified 10/19/24 11:39 Home Medications ?Medication ?Instructions ?Recorded ?Confirmed ?Last Taken ?Type cholecalciferol (vitamin D3) 25 25 mcg PO DAILY 02/28/20 11/08/24 Unknown History mcg (1,000 unit) capsule cyanocobalamin (vitamin B-12) 500 500 mcg PO DAILY 02/28/20 11/08/24 Unknown History mcg lozenges (Vitamin B-12) Exam Height,Weight and Vital Signs: Height 5 ft 10 in Weight 103.873 kg Pertinent Lab Results Pertinent Lab Results: Laboratory Tests 10/20/24 09:36 WBC 5.2 Hgb 14.3 Hct 43.9 Plt Count 157 L Sodium 142 Potassium 3.8 Chloride 110 H Carbon Dioxide 23 BUN 20 H Creatinine 1.09 Narrative Narrative: EKG 10/2024 Vent. Rate : 52 BPM Atrial Rate : 52 BPM P-R Int : 226 ms QRS Dur : 84 ms QT Int : 426 ms P-R-T Axes : -27 9 3 degrees QTcB Int : 396 ms Sinus bradycardia with 1st degree A-V block Otherwise normal ECG When compared with ECG of 23-Feb-2022 15:40, No significant change was found Assessment and Plan Assessment Anesthesia Assessment: Chart Reviewed Documented by User: Dwayne Kwan MD 11/12/24 07:19 [facility] Past Medical History Medical History Elevated blood sugar Fatty liver Hemorrhoids Diverticular disease Hepatitis C COPD (chronic obstructive pulmonary disease) Peripheral vascular disease Obesity (BMI 30-39.9) Osteoarthritis Pernicious anemia Anxiety Erectile dysfunction Carpal tunnel syndrome Hypertension Cognitive capacity: good Family History Family History Father No problems noted. Mother Colon cancer Hypertension Brother Colon cancer Sister Colon cancer Family history of problems with anesthesia: No Surgical History Surgical History History of surgery H/O colonoscopy History of nasal surgery History of knee replacement procedure of left knee History of knee replacement procedure of right knee History of arthroscopy of right knee History of removal of cyst History of carpal tunnel release History of tonsillectomy History of umbilical hernia repair History of Problems with Anesthesia: No Social History Social History Housing: House Alcohol intake: former Patient Tobacco Use Status: Former Tobacco user Tobacco use type: Cigarette Years Smoked: quit 1995 e-Cigarette/Vaping Use: Never Used Second Hand Smoke Exposure: No Use of substances other than those prescribed or required for medical reasons: No Are you DNR?: No Advance Directives: No Advance Directives Information Provided: Yes Poor oral hygiene: No service: Yes Current occupational status: retired Cognitive needs: No Hearing needs: No Vision needs: Yes Meds Allergies Allergy/AdvReac Type Severity Reaction Status Date / Time No Known Allergies Allergy Verified 10/19/24 11:39 Home Medications ?Medication ?Instructions ?Recorded ?Confirmed ?Last Taken ?Type cholecalciferol (vitamin D3) 25 25 mcg PO DAILY 02/28/20 11/08/24 Unknown History mcg (1,000 unit) capsule cyanocobalamin (vitamin B-12) 500 500 mcg PO DAILY 02/28/20 11/08/24 Unknown History mcg lozenges (Vitamin B-12) Exam Exam Date and Time: 11/15/2024 Airway Mallampati Class: II TM Dist: >3cm Neck ROM: Full Loose/Missing/Broken Teeth: Yes (not loose) Heart: rrr Lungs: cta Other: normal Assessment and Plan Assessment Anesthesia Assessment: Anesthesia Plan Discussed Final Anesthetic Review Family History of Problems with Anesthesia: No History of Problems with Anesthesia: No NPO: Yes ASA Class: II Final Preanesthetic Review: No Changes in Pt Med Stat, Meds/Allgs Chart Reviewed, Consent Obtained/Reviewed and Anes Risks/Benef Reviewed Patient Risk: Low Procedure Risk: Low Anesthetic Plan Anesthetic Plan: MAC: Disposition: Standard PACU
[2024-11-12 06:46] VITALS: BMI 31.6
[2024-11-12 07:05] VITALS: BP 94/71; PULSE 61; RESP 16; TEMP 36.4; O2SAT 98
[2024-11-12] MEDS: Lactated Ringers 1,000 ML 100 ML IVCONT (07:13)
[2024-11-12 08:26] VITALS: BP 146/75; PULSE 56; RESP 12; TEMP 36.4; O2SAT 95
--- NOTE | 2024-11-12 08:32 | PM.OP ---
Brief Operative Note Date of Service: 11/12/24 Pre-op diagnosis: Screening Post-op diagnosis: other (Polyp) Procedure: Colonoscopy to the cecum with hot snare polypectomy Surgeon: Regino Mills MD Anesthesia: MAC Was an Purchase Order Checker used for this Procedure?: No Estimated blood loss (mL): 0 Pathology: other (A. Polyp at 60cm) Condition: stable Disposition: PACU
[2024-11-12 08:43] VITALS: BP 152/78; PULSE 58; RESP 16; TEMP 36.5; O2SAT 95
--- NOTE | 2024-11-12 09:43 | OP_ITS ---
DATE OF SERVICE: 11/12/2024 SURGEON: Regino Mills MD INDICATIONS: Patient presents for evaluation of personal history of tubular adenoma of the colon, family history of colon cancer, colorectal cancer screening. Full consent was obtained from him for this, including risks of bleeding and perforation. PREOPERATIVE DIAGNOSIS: Colorectal cancer screening, personal history of tubular adenomas, family history of colon cancer. POSTOPERATIVE DIAGNOSIS: Colorectal cancer screening, personal history of tubular adenomas, family history of colon cancer, colon polyp, diverticulosis, internal and external hemorrhoids. PROCEDURE PERFORMED: Colonoscopy to the cecum with hot snare polypectomy. ESTIMATED BLOOD LOSS: COMPLICATIONS: ANESTHESIA: Monitored anesthesia care. ASSISTANTS: SPECIMENS: DESCRIPTION OF PROCEDURE: Patient was placed in the left lateral decubitus position. The digital rectal exam revealed external hemorrhoids. The Olympus video pediatric colonoscope was entered into the rectum and advanced easily to the cecum. Once in the cecum, I did identify normal-appearing cecal pouch with appendiceal orifice and normal-appearing ileocecal valve. The entire cecum and ileocecal valve appeared normal. The scope was slowly withdrawn, assessing all mucosal surfaces carefully. Preparation was excellent. At 60 cm, was what appeared to be an inflammatory polyp measuring approximately 8 to 10 mm. This was removed by hot snare polypectomy and recovered by suction. The polypectomy site appeared clean, without any sign of residual polyp nor bleeding. I did not visualize any other polyps, colitis, nor angiodysplasia. There was a mild to moderate amount of sigmoid diverticulosis. In the rectum, scope was retroflexed, visualizing internal hemorrhoids, but no other pathology. The rectal mucosa appeared normal. The scope was straightened and withdrawn from the patient. He tolerated the procedure well and was returned to recovery area in stable condition. IMPRESSION: 1. Colon polyp. 2. Diverticulosis. 3. Internal and external hemorrhoids. PLAN: The results of the pathology will be checked. Given his age and these findings, I do not think he needs any further screening colonoscopies. He was advised not to use any aspirin or NSAIDs for 1 week. He will be seen at [facility] in regard to a suspicion of a hepatoma seen on recent imaging studies. He will be seen in followup by me either later in the year or early next year as well. MD ETHAN Graham/SLOAN / [id number] MTDD
== END 2024-11-12 09:33 | disposition home or self-care (01) ==
PROVIDERS: PCP Internal Medicine; Visit Provider Internal Medicine
PROC: 0DJD8ZZ Inspection of Lower Intestinal Tract, Via Natural or Artificial Opening Endoscopic (ICD-10-PCS; CPT 45378; principal; 2024-11-12 07:30)
DX: Z12.11 Encounter for screening for malignant neoplasm of colon (principal); K51.418 Inflammatory polyps of colon with other complication; K57.30 Diverticulosis of large intestine without perforation or abscess without bleeding; K64.8 Other hemorrhoids; K64.4 Residual hemorrhoidal skin tags; Z80.0 Family history of malignant neoplasm of digestive organs; Z86.0101 Personal history of adenomatous and serrated colon polyps; I10 Essential (primary) hypertension; J44.9 Chronic obstructive pulmonary disease, unspecified; B19.20 Unspecified viral hepatitis C without hepatic coma; F41.1 Generalized anxiety disorder; Z79.899 Other long term (current) drug therapy
CPT/HCPCS: 45385; 88305; J2003; J2704; J3010

== ENCOUNTER 2024-11-19 16:51 | Outpatient (AMB) | payer MEDICARE, SELFPAY ==
[2024-11-19 16:54] VITALS: BP 122/74; PULSE 68; O2SAT 96; BMI 32.0
--- NOTE | 2024-11-19 16:54 | MHC.PC.OV ---
Vital Signs 11/19/24 16:54 Height 5 ft 10 in Weight 223 lb BMI 32.0 BP 122/74 Blood Pressure Location Lt brachial Position Sitting Pulse 68 Pulse Source Pulse Oximeter Pulse Oximetry (%) 96 Oxygen Delivery Method Room Air Intake Visit Reasons: follow up Allergies No Known Allergies Allergy (Verified 11/19/24 16:54) Tobacco use date assessed: 10/19/24 Fall risk assessment: No Falls in past year Last assessed Fall Risk: 11/19/24 Dental Screening Dental Screen Date: 10/03/24 [facility] Medical History Elevated blood sugar Fatty liver Hemorrhoids Diverticular disease Hepatitis C COPD (chronic obstructive pulmonary disease) Peripheral vascular disease Obesity (BMI 30-39.9) Osteoarthritis Pernicious anemia Anxiety Erectile dysfunction Carpal tunnel syndrome Hypertension Surgical History History of surgery H/O colonoscopy History of nasal surgery History of knee replacement procedure of left knee History of knee replacement procedure of right knee History of arthroscopy of right knee History of removal of cyst History of carpal tunnel release History of tonsillectomy History of umbilical hernia repair Family History Father No problems noted. Mother Colon cancer Hypertension Brother Colon cancer Sister Colon cancer Social History Housing: House Alcohol intake: former Patient Tobacco Use Status: Former Tobacco user Tobacco use type: Cigarette Years Smoked: quit 1995 e-Cigarette/Vaping Use: Never Used Second Hand Smoke Exposure: No service: Yes Current occupational status: retired Cognitive needs: No Hearing needs: No Vision needs: Yes Questionnaire PHQ-9 Over the last 2 weeks, how often have you been bothered by any of the following problems? 1. Little interest or pleasure in doing things: nearly every day 2. Feeling down, depressed, or hopeless: more than half the days 3. Trouble falling or staying asleep, or sleeping too much: not at all 4. Feeling tired or having little energy: not at all 5. Poor appetite or overeating: not at all 6. Feeling bad about yourself - or that you are a failure or have let yourself or your family down: not at all 7. Trouble concentrating on things, such as reading the newspaper or watching television: not at all 8. Moving or speaking so slowly that other people could have noticed. Or the opposite - being so fidgety or restless that you have been moving around a lot more than usual: nearly every day 9. Thoughts that you would be better off or of hurting yourself in some way: more than half the days Total score: 10 Depression Screening Interpretation: Positive Depression Screening Done: Yes Source: Developed by Drs. Regino Moran, Natacha Vallejo, Ash Wolf and colleagues, with an educational jose luis from [employer]. Thrive Questionnaire Date Thrive assessed: 11/19/24 I am a: Patient What is your living situation today?: I have a steady place to live Within the past 12 months, did the food you bought not last and you didn't have the money to get more?: Never true Within the past 12 months, did you worry whether your food would run out before you got money to buy more?: Never true Do you have trouble paying for medicines?: No Do you have trouble getting transportation to medical appointments?: No Do you have trouble paying your heating and electricity bill?: No Do you have trouble taking care of your child, family member or friend?: No Do you have trouble with day-to-day activities such as bathing, preparing meals, shopping, managing finances, etc.?: No Are you currently unemployed and looking for a job?: Yes Are you interested in more education?: No Currently or been in a relationship where the following occur: No concerns reported THRIVE Score: 0 AUDIT C Alcohol Use Questionnaire (AUDIT-C) 1. How often do you have a drink containing alcohol?: Never 3. How often do you have six or more drinks on one occasion?: Never Total Score: 0 DEVON-7 AMB Questionnaire DEVON-7 Date DEVON - 7 assessed: 10/03/24 Feeling nervous, anxious, or on edge: 0 = Not at all Not being able to stop or control worryin = Nearly every day Worrying too much about different things: 3 = Nearly every day Trouble relaxin = Nearly every day Being so restless that it is hard to sit still: 0 = Not at all Becoming easily annoyed or irritable: 0 = Not at all Feeling afraid as if something awful might happen: 0 = Not at all Total DEVON-7 score (0-4 normal; 5-9 mild; 10-14 moderate; 15-21 severe): 9 Source: Developed by Drs. Regino Moran, Natacha Vallejo, Ash Wolf and colleagues, with an educational jose luis from [employer]. Physical exam (Primary Care) Vital Signs: Last Vital Signs Pulse 68 11/19/24 16:54 BP 122/74 11/19/24 16:54 Pulse Ox 96 11/19/24 16:54 Oxygen Delivery Method Room Air 11/19/24 16:54 BMI result Body Mass Index 32.0 Tobacco/Smoking Status: Tobacco use Status Tobacco use date assessed 10/19/24 11/19/24 16:58 Patient Tobacco Use Status Former Tobacco user 11/19/24 16:58 Tobacco use type Cigarette 11/19/24 16:58 e-Cigarette/Vaping Use Never Used 11/19/24 16:58 PHQ-9: PHQ-9 Score PHQ-9: Total score 10 11/19/24 16:58 Depression Screening Interpretation: Positive Thrive Assessment: Date of Thrive Assessment Date Thrive assessed 11/19/24 11/19/24 16:58 Currently or been in a relationship where the following occur: No concerns reported Const General: alert; No acute distress Eyes Conjunctivae: conjunctivae normal Resp Auscultation: clear to auscultation bilaterally Cardio Rate: regular rate Rhythm: regular rhythm GI Inspection: Yes normal to inspection Extrem General: Yes normal to inspection and No edema Coding Level of Care Code Est Pt Level 4 (88023) Complex EM visit Add On G2211 Diagnoses Liver mass R16.0 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 type: panlobular 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 (2) COPD (chronic obstructive pulmonary disease): Code(s): J44.9 - Chronic obstructive pulmonary disease, unspecified Category: Medical Qualifiers: COPD type: emphysema Emphysema type: panlobular Qualified Code(s): J43.1 - Panlobular emphysema Plan: Stable (3) Osteoarthritis: Comment: Knees and back Code(s): M19.90 - Unspecified osteoarthritis, unspecified site Category: Medical Qualifiers: Osteoarthritis location: multiple joints Osteoarthritis type: primary Qualified Code(s): M89.49 - Other hypertrophic osteoarthropathy, multiple sites Plan: Narcotic pain meds: Is being prescribed with the understanding that these medications are potentially addictive and should be used only when absolutely necessary and must always be secured. Any remaining pills should be safely disposed off appropriately. Patient is advised that narcotics can impaired judgment and one should not drive or operate heavy machinery while taking these medications. Never share these medications with anybody and do not leave them unattended. They will not be replaced under any circumstances. (4) Tubular adenoma of colon: Comment: November 2024 Code(s): D12.6 - Benign neoplasm of colon, unspecified Category: Medical Plan: Patient just had colonoscopy done (5) Impaired fasting blood sugar: Code(s): R73.01 - Impaired fasting glucose Category: Medical Plan: Decrease the amount of carbohydrate intake, pasta, bread, rice and potatoes are all sugar and that is aside from all the sweet stuff, remember that fruits are good but they are Sweet also. (6) Obesity (BMI 30-39.9): Code(s): E66.9 - Obesity, unspecified Category: Medical Plan: Diet and exercise (7) Hypertension: Code(s): I10 - Essential (primary) hypertension Category: Medical Qualifiers: Hypertension type: essential hypertension Qualified Code(s): I10 - Essential (primary) hypertension Plan: Continue with blood pressure medication atenolol 100 mg once a day lisinopril 40 mg once a day (8) Generalized anxiety disorder: Comment: Decline referral counseling( 11/2021) Code(s): F41.1 - Generalized anxiety disorder Category: Medical Plan: Continue with present medication Plan History of Present Illness The patient is a 79-year-old male presenting for a follow-up visit after a preoperative evaluation for cataract surgery. He has a history of hypertension, managed with atenolol and lisinopril, and chronic obstructive pulmonary disease (COPD). Generalized anxiety disorder is also part of his medical history. In November 2024, a colonoscopy revealed a tubular adenoma. An MRI of the abdomen in October showed a 5 cm liver mass, raising concerns about hepatocellular carcinoma. The patient has osteoarthritis of the knee and diabetes mellitus, with a recent blood sugar level of 411 mg/dL. [employer] Social History Review of Systems Physical Exam Results - Labs: October 20 blood work showed normal blood count, normal electrolytes, and good renal function, but elevated blood sugar at 411 mg/dL. - Imaging: MRI of the abdomen in October revealed a 5 cm liver mass. - Procedure: Colonoscopy in November 2024 revealed a tubular adenoma. Plan The patient will continue with atenolol and lisinopril for hypertension management. Lifestyle modifications, including diet and exercise, are advised for diabetes mellitus control. Further evaluation of the liver mass is necessary, with a specialist consultation recommended for potential biopsy. Pain management for osteoarthritis will include a narcotic plan as needed. Patient was informed and verbally consented to the use of an ambient scribe for clinic note documentation during this visit. Discussion Notes Patient Instructions
== END 2024-11-19 17:38 | disposition home or self-care (01) ==
LOC: HO.HMCH 16:52
PROVIDERS: PCP Internal Medicine; Visit Provider Internal Medicine
DX: J43.1 Panlobular emphysema (principal); E66.9 Obesity, unspecified; Z68.32 Body mass index [BMI] 32.0-32.9, adult; R16.0 Hepatomegaly, not elsewhere classified; M89.49 Other hypertrophic osteoarthropathy, multiple sites; D12.6 Benign neoplasm of colon, unspecified; R73.01 Impaired fasting glucose; I10 Essential (primary) hypertension; F41.1 Generalized anxiety disorder

== ENCOUNTER → 2024-11-19 16:51 | Outpatient (BNVA) | payer MEDICARE, SELFPAY | PROVIDERS: PCP Internal Medicine; Visit Provider Internal Medicine | DX: J43.1 Panlobular emphysema (principal); M89.49 Other hypertrophic osteoarthropathy, multiple sites; R16.0 Hepatomegaly, not elsewhere classified; D12.6 Benign neoplasm of colon, unspecified; R73.01 Impaired fasting glucose; E66.9 Obesity, unspecified; I10 Essential (primary) hypertension; F41.1 Generalized anxiety disorder | CPT/HCPCS: 96127; 99212 ==

== ENCOUNTER 2025-02-08 09:42 | Outpatient (AMB) | payer MEDICARE, SELFPAY ==
--- OUTSIDE RECORDS SUMMARY | 2024-11-12 03:30 | XMS_ITS ---
Author Organization [facility] Address [address] [place] [address] Care Team Providers Care Scrap Wheeler Name Role Phone Janel Pitts MD Primary Care Provider Guanaco Bansal Unavailable [phone] REASON FOR VISIT screening,hx polyps,fam hx colon ca Encounters Encounter Location Date Provider Diagnosis [facility] [address] [place] [id number] 11/12/2024 Guanaco Mills Plan Of Treatment Next Appt Details Provider Name:Guanaco Mills , 05/16/2025 09:40:00 AM, [address], [address], [place], [address], Progress Notes * DENIGUANACODOB:1945 (79 yo M)Acc No.[id number]:11/12/2024 COLON WITH MAC Patient: GUANACO HOGAN Provider: Bruno Mills MD :1945 A ge:79 Y S ex:Male Date:11/12/2024 Address:[address] [place], [place] [id number] Pcp:Janel Pitts MD Subjective: * Chief Complaints: * 1 . Screening,hx polyps,fam hx colon ca. * Medical History: Objective: * Vitals: Assessment: Plan: * Treatment: * * The named appointment provid er may or may not be the originator of this progress note, and it is not deemed complete until electronically signed by the appointment provider. Sign off status: Pending * Provider: Bruno Mills MD Date: 0 11/12/2024 Generated for Shelley danielle/Dc/Niya on: 1 10:52 AM EDT
[2025-02-08 09:45] VITALS: BP 132/72; PULSE 74; TEMP 36.1; O2SAT 95; BMI 31.4
--- NOTE | 2025-02-08 09:45 | MHC.PC.OV ---
Vital Signs 02/08/25 09:45 Height 5 ft 10 in Weight 219 lb 2 oz BMI 31.4 BP 132/72 Blood Pressure Location Lt brachial Position Sitting Pulse 74 Pulse Source Pulse Oximeter Temp 97.0 F Temp Source Temporal Artery Scan Pulse Oximetry (%) 95 Oxygen Delivery Method Room Air Intake Visit Reasons: HTN, OA knee and hand Allergies No Known Allergies Allergy (Verified 02/08/25 09:48) Tobacco use date assessed: 02/08/25 Fall risk assessment: No Falls in past year Last assessed Fall Risk: 02/08/25 Dental Screening Dental Screen Date: 02/08/25 Did you have a dental visit in the last 12 months?: Yes Did you have a dental problem in the last 6 months where you did not have access to dental care?: No Was dental information given to patient?: Patient has dentist [facility] Medical History Elevated blood sugar Fatty liver Hemorrhoids Diverticular disease Hepatitis C COPD (chronic obstructive pulmonary disease) Peripheral vascular disease Obesity (BMI 30-39.9) Osteoarthritis Pernicious anemia Anxiety Erectile dysfunction Carpal tunnel syndrome Hypertension Surgical History History of surgery H/O colonoscopy History of nasal surgery History of knee replacement procedure of left knee History of knee replacement procedure of right knee History of arthroscopy of right knee History of removal of cyst History of carpal tunnel release History of tonsillectomy History of umbilical hernia repair Family History Father No problems noted. Mother Colon cancer Hypertension Brother Colon cancer Sister Colon cancer Social History Housing: House Alcohol intake: former Patient Tobacco Use Status: Former Tobacco user Tobacco use type: Cigarette Years Smoked: quit 1995 e-Cigarette/Vaping Use: Never Used Second Hand Smoke Exposure: No service: Yes Current occupational status: retired Cognitive needs: No Hearing needs: No Vision needs: Yes Questionnaire PHQ-9 Over the last 2 weeks, how often have you been bothered by any of the following problems? 1. Little interest or pleasure in doing things: nearly every day 2. Feeling down, depressed, or hopeless: more than half the days 3. Trouble falling or staying asleep, or sleeping too much: not at all 4. Feeling tired or having little energy: not at all 5. Poor appetite or overeating: not at all 6. Feeling bad about yourself - or that you are a failure or have let yourself or your family down: not at all 7. Trouble concentrating on things, such as reading the newspaper or watching television: not at all 8. Moving or speaking so slowly that other people could have noticed. Or the opposite - being so fidgety or restless that you have been moving around a lot more than usual: nearly every day 9. Thoughts that you would be better off or of hurting yourself in some way: more than half the days Total score: 10 Depression Screening Interpretation: Positive Depression Screening Done: Yes Source: Developed by Drs. Regino Moran, Natacha Vallejo, Ash Wolf and colleagues, with an educational jose luis from [employer]. Thrive Questionnaire Date Thrive assessed: 11/19/24 I am a: Patient What is your living situation today?: I have a steady place to live Within the past 12 months, did the food you bought not last and you didn't have the money to get more?: Never true Within the past 12 months, did you worry whether your food would run out before you got money to buy more?: Never true Do you have trouble paying for medicines?: No Do you have trouble getting transportation to medical appointments?: No Do you have trouble paying your heating and electricity bill?: No Do you have trouble taking care of your child, family member or friend?: No Do you have trouble with day-to-day activities such as bathing, preparing meals, shopping, managing finances, etc.?: No Are you currently unemployed and looking for a job?: Yes Are you interested in more education?: No Currently or been in a relationship where the following occur: No concerns reported THRIVE Score: 0 AUDIT C Alcohol Use Questionnaire (AUDIT-C) 1. How often do you have a drink containing alcohol?: Never 3. How often do you have six or more drinks on one occasion?: Never Total Score: 0 DEVON-7 AMB Questionnaire DEVON-7 Date DEVON - 7 assessed: 10/03/24 Feeling nervous, anxious, or on edge: 0 = Not at all Not being able to stop or control worryin = Nearly every day Worrying too much about different things: 3 = Nearly every day Trouble relaxin = Nearly every day Being so restless that it is hard to sit still: 0 = Not at all Becoming easily annoyed or irritable: 0 = Not at all Feeling afraid as if something awful might happen: 0 = Not at all Total DEVON-7 score (0-4 normal; 5-9 mild; 10-14 moderate; 15-21 severe): 9 Source: Developed by Drs. Regino Moran, Natacha Vallejo, Ash Wolf and colleagues, with an educational jose luis from [employer]. Physical exam (Primary Care) Vital Signs: Last Vital Signs Temp 97.0 F 02/08/25 09:45 Pulse 74 02/08/25 09:45 BP 132/72 02/08/25 09:45 Pulse Ox 95 02/08/25 09:45 Oxygen Delivery Method Room Air 02/08/25 09:45 BMI result Body Mass Index 31.4 Tobacco/Smoking Status: Tobacco use Status Tobacco use date assessed 02/08/25 02/08/25 09:49 Patient Tobacco Use Status Former Tobacco user 02/08/25 09:45 Tobacco use type Cigarette 02/08/25 09:45 e-Cigarette/Vaping Use Never Used 02/08/25 09:45 PHQ-9: PHQ-9 Score PHQ-9: Total score 10 02/08/25 10:23 Depression Screening Interpretation: Positive Thrive Assessment: Date of Thrive Assessment Date Thrive assessed 11/19/24 02/08/25 09:45 Currently or been in a relationship where the following occur: No concerns reported Const General: alert; No acute distress Eyes Conjunctivae: conjunctivae normal Resp Auscultation: clear to auscultation bilaterally Cardio Rate: regular rate Rhythm: regular rhythm GI Inspection: Yes normal to inspection Extrem General: Yes normal to inspection and No edema Office Procedures Flu Questionnaire Does the patient have a severe egg allergy?: No Does the patient have severe life threatening allergies?: No Does the patient have a fever or illness today?: No Has the patient ever had Guillain-Rothschild Syndrome?: No Has the patient ever had any past reaction to a flu shot?: No Immunizations Fluarix [id number] (PF) 45 mcg (15 mcg x 3)/0.5 mL IM syringe Performing Provider: Janel Pitts MD Performing Location: [facility] Administered by: Yen Serrano CMA on 02/08/25 10:26 Dose Route Admin Location Dispensed Lot Number Expiration Date NDC Bracelet Maker Novelty 0.5 mL IM Right Deltoid 0.5 mL [id number] 10/08/25 [id number] [employer] V[employer] Given Date VIS Provided VIS Publication Date 02/08/25 Single Vaccine 24 Eligibility Eligibility Date Funding Source Not [facility] Eligible 02/08/25 Private Coding Level of Care Code Est Pt Level 4 (71322) Complex EM visit Add On G2211 Diagnoses Hepatocellular carcinoma C22.0 Impaired fasting blood sugar R73.01 Obesity (BMI 30-39.9) E66.9 Essential hypertension I10 Hypertension type: essential hypertension 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 Osteoarthritis location: multiple joints Osteoarthritis type: primary Assessment & Plan Assessment & Plan (1) Hepatocellular carcinoma: Code(s): C22.0 - Liver cell carcinoma Category: Medical Plan: Review of the notes had multiple procedures done limited to liver right lobe had chemoembolization done January 2025 (2) Impaired fasting blood sugar: Code(s): R73.01 - Impaired fasting glucose Category: Medical Plan: Decrease the amount of carbohydrate intake, pasta, bread, rice and potatoes are all sugar and that is aside from all the sweet stuff, remember that fruits are good but they are Sweet also. (3) Obesity (BMI 30-39.9): Code(s): E66.9 - Obesity, unspecified Category: Medical (4) Hypertension: Code(s): I10 - Essential (primary) hypertension Category: Medical Qualifiers: Hypertension type: essential hypertension Qualified Code(s): I10 - Essential (primary) hypertension Plan: Diet and exercise (5) Osteoarthritis: Comment: Knees and back Code(s): M19.90 - Unspecified osteoarthritis, unspecified site Category: Medical Qualifiers: Osteoarthritis location: multiple joints Osteoarthritis type: primary Qualified Code(s): M89.49 - Other hypertrophic osteoarthropathy, multiple sites Plan: Narcotic pain meds: Is being prescribed with the understanding that these medications are potentially addictive and should be used only when absolutely necessary and must always be secured. Any remaining pills should be safely disposed off appropriately. Patient is advised that narcotics can impaired judgment and one should not drive or operate heavy machinery while taking these medications. Never share these medications with anybody and do not leave them unattended. They will not be replaced under any circumstances. Plan History of Present Illness The patient is a 79-year-old obese male presenting for follow-up on his hepatocellular carcinoma. He has a history of hypertension, COPD, generalized anxiety disorder, and impaired glucose tolerance. The patient was diagnosed with right hepatic hepatocellular carcinoma, which was confirmed by an ultrasound-guided biopsy on December 11, 2024. A CT scan of the chest in November 2024 showed no evidence of metastatic disease, and the cancer is confined to the right lobe of the liver. He recently underwent an arterial catheterization with chemoembolization at [facility]. Post-procedure, the patient experienced tiredness, nausea without vomiting, weakness, and a desire to sleep a lot, but these symptoms are now subsiding. He has had no pain. 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 He also has a history of a tubular adenoma of the colon, with his last colonoscopy in November 2024. The patient's father had liver cancer. Recent labs from October 2024 showed a normal blood count, and his LDL was 93 last year. He has had a 4-pound weight loss since November. Health Maintenance - An influenza shot will be administered during today's visit. - The patient was advised to get a COVID-19 shot at a pharmacy. - His last colonoscopy was in November 2024, which showed a tubular adenoma. - Last year's cholesterol panel showed an LDL of 93. - Diabetes management plan consists of diet and exercise. 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 Review of Systems - Constitutional: Reports post-procedural fatigue, weakness, and somnolence, which are improving. - General: Denies pain. - Gastrointestinal: Reports post-procedural nausea. - Denies emesis. Physical Exam - General: The patient is obese. - Vitals: A 4-pound weight loss was noted since November. Results - Labs: Normal blood count in October 2024. - LDL was 93 last year. - Imaging: CT of the chest on November 29, 2024 showed no evidence of pulmonary nodules or metastatic disease. - Lung shunt mapping SPECT CT showed tracer activity confined to the right lobe of the liver with no significant extrahepatic activity. - Procedures: Ultrasound-guided biopsy on December 11, 2024, was positive for hepatocellular carcinoma. Plan Patient was informed and verbally consented to the use of an ambient scribe for clinic note documentation during this visit. 1. Hepatocellular Carcinoma The patient is status post chemoembolization for right hepatic lobe hepatocellular carcinoma and is recovering well, with resolving fatigue and nausea. The cancer is confined to the liver. He will continue to follow with his specialty team at [facility], with an expected follow-up in three months. The patient was reminded to ensure all consultation notes are sent to this office. 2. Impaired Glucose Tolerance Continue management with diet and exercise. 3. Preventative Care An influenza vaccine will be administered in the office today. Advised the patient to receive the COVID-19 vaccine at a pharmacy. 4. Chronic Conditions The patient's hypertension, COPD, and generalized anxiety disorder are stable. He has adequate medication refills at home. Will continue with current management. Discussion Notes I reviewed the patient's recent history regarding his diagnosis of hepatocellular carcinoma. I explained that his recent chemoembolization procedure works by cutting off the blood supply to the mass and that imaging confirms the cancer is confined to the right lobe of the liver. We discussed that post-procedure symptoms of tiredness and nausea are expected, and he reports they are already improving. I reassured him that modern treatments for this condition have a good prognosis, which is an improvement upon older surgical methods. We also acknowledged his history of Hepatitis C as a likely risk factor for his current diagnosis. Regarding follow-up, I advised him he will be seen by his [facility] team in about three months and to ensure their notes are forwarded to my office. We also discussed preventative health, and I recommended he receive both the influenza and COVID-19 vaccines. I advised him to send a message if any problems arise in the interim. Patient Instructions - You will receive a flu shot in the office today. - It is recommended that you get a COVID-19 vaccine from a local pharmacy. - Continue to manage your blood sugar levels by following your recommended diet and exercise plan. - Your cancer specialists at [facility] will contact you for a follow-up visit in about 3 months. - It is normal to feel tired and have some nausea after your recent liver procedure; these symptoms should continue to get better. - Please contact our office if you experience any new or worsening problems. Orders: Orders Influenza [id number] Immunization Today Z23 - Encounter for immunization
--- OUTSIDE RECORDS SUMMARY | 2025-02-08 10:53 | XMS_ITS | Encounter Summary ---
Author Organization [facility] Address [address] [place] [address] Care Team Providers Care Drapery Head Former Name Role Phone Janel Pitts Primary Care Provider [phone] Encounter Details Date Type Department Care Team (Late st Contact Info) Description 01/08/2025 Orders Only [facility] Nuclear Medicine [address] [place] [address] Regino Gamez MD [address] [place] [address] Social History Tobacco Use Types Packs/Day Years Used Date Smoking Tobacco: Former Cigarettes Q uit: 1997 Smokeless Tobacco: Never Alcohol Use Standard Drinks/Week Comments Not Currently 0 (1 standard drink = 0.6 oz pur e alcohol) quit 1997 Sex and Gender Information Value Date Recorded Sex Assigned at Male 11/09/2024 11:59 AM EDT Legal Sex Male 11:58 AM EDT Gender Identity Male 11/13/2024 9:46 AM EDT Sexual Orientation Straight 12/05/2024 2: 22 PM EDT documented as of this encounter Plan of Treatment Not on file documented as of this encounter Visit Diagnoses Not on filedocumented in this encounter Care Teams Drapery Head Former Relationship Specialty Start Date End Date Janel Pitts [address] [place] [address] [place] [address] PCP - General Internal Medicine 11/13/24 documented as of this encounter
--- OUTSIDE RECORDS SUMMARY | 2025-02-08 10:53 | XMS_ITS | Clinical Summary ---
Author Organization [facility] Address [address] [place] [address] Care Team Providers Care Processor Grain Name Role Phone Janel Pitts Primary Care Provider [phone] Allergies No known active allergies Medications sertraline (ZOLOFT) 100 mg tablet Take 100 mg by mouth once a day. Active oxyCODONE-aceta minophen (PERCOCET) 5-325 mg tablet Take 1 tablet by mouth every 6 hours as needed. Active lisinopriL (PRINIVIL,ZESTR IL) 40 mg tablet Take 40 mg by mouth once a day. Active fluticasone propionate (FLONASE) 50 mcg/actuation nasal spray Administer 2 sprays into each nostril once a day. Active celecoxib (CeleBREX) 100 mg capsule Take 100 mg by mouth once a day. Active atenoloL (TENORMIN) 100 mg tablet Take 100 mg by mouth once a day. Active ketorolac (ACULAR) 0.5% ophthalmic solution SMARTSI Drop(s) Right Eye 4 Times Daily Active Active Problems Problem Noted Date Diagnosed Date Advanced hepatic fibrosis 11/29/2024 Primary hypertension 11/29/2024 Hepatocellular carcinoma 11/15/2024 Nontraumatic complete tear of left rotator cuff 09/06/2024 Idiopathic osteoarthritis 03/09/2016 Overview (11/29/2024): Problem Code: M17.12; Problem Code Type: ICD-10; Status: 'A'; Encounters Date Type Department Care Team Description 02/01/2025 Telephone [facility] Interventional Radiology [address] [place] [address] Juliana Overton LPN 01/23/2025 7:57 AM EDT - 01/23/2025 11:59 PM EDT Hospital Encounter [facility] Nuclear Medicine [address] [place] [id number] Hepatocellular carcinoma Discharge Disposition: Home or Self Care () 01/23/2025 7:56 AM EDT Hospital Encounter [facility] Nuclear Medicine [address] [place] [address]608 Hepatocellular carcinoma Discharge Disposition: Home or Self Care () 01/23/2025 7:55 AM EDT Hospital Encounter [facility] Interventional Radiology [address] [place] [address] Yuriy Nguyen MD Hepatocellular carcinoma Discharge Disposition: Home or Self Care () 01/23/2025 7:55 AM EDT Hospital Encounter [facility] 2 Rad Act [address] [place] [address] Discharge Disposition: Home or Self Care () 01/16/2025 9:03 AM EDT - 01/16/2025 11:59 PM EDT Hospital Encounter [facility] Nuclear Medicine [address] [place] [address] Hepatocellular carcinoma Discharge Disposition: Home or Self Care () 01/16/2025 9:03 AM EDT - 01/16/2025 11:59 PM EDT Hospital Encounter [facility] Interventional Radiology [address] [place] [address] Yuriy Nguyen MD Rodriguez, Elizabeth J, RN Hepatocellular carcinoma Discharge Disposition: Home or Self Care () 01/16/2025 9:01 AM EDT - 01/16/2025 9:02 AM EDT Hospital Encounter [facility] 2 Rad Act [address] [place] [address] Discharge Disposition: Home or Self Care () 01/15/2025 Telephone [facility] Interventional Radiology [address] [place] [address] Lyn Hanks RN 01/08/2025 Orders Only [facility] Interventional Radiology [address] [place] [address] Madison Zuniga PA Hepatocellular carcinoma (HCC) (Primary Dx) 01/08/2025 Orders Only [facility] Nuclear Medicine [address] [place] [address] Regino Gamez MD 12/21/2024 1:30 PM EDT - 12/21/2024 11:59 PM EDT Hospital Encounter [facility] Interventional Radiology [address] [place] [address] Hepatocellular carcinoma (HCC) Discharge Disposition: Home or Self Care () 12/20/2024 Telephone [facility] Interventional Radiology [address] [place] [address] Sparkle Nunes, MIKEY 12/19/2024 Orders Only [facility] Interventional Radiology [address] [place] [address] Madison Zuniga PA 12/19/2024 Telephone [facility] Transplant Department [address] [place] [address] Virginia Cm NP 12/19/2024 Results Follow-Up [facility]plant [facility] [address] [place] [address] Virginia Cm NP 12/11/2024 11:20 AM EDT - 12/11/2024 11:59 PM EDT Hospital Encounter [facility] Interventional Radiology [address] [place] [address] 6[address] Hepatocellular carcinoma (HCC) Discharge Disposition: Home or Self Care () 12/11/2024 11:19 AM EDT Hospital Encounter [facility] 2 Rad Act [address] [place] [address] Discharge Disposition: Home or Self Care () 12/07/2024 Telephone [facility] Interventional Radiology [address] [place] [address] 54070 Milana Lee RN 12/05/2024 Results Follow-Up [facility]plant [facility] [address] [place] [address] Virginia Cm NP 12/03/2024 Orders Only [facility] Interventional Radiology [address] [place] [address] Apryl Long PA 11/29/2024 2:00 PM EDT Evaluation [facility] [address] [place] [address] Virginia Cm NP Hepatocellular carcinoma (HCC) (Primary Dx) 11/29/2024 12:48 PM EDT - 11/29/2024 11:59 PM EDT Hospital Encounter [facility] [address] [place] [address] Hepatocellular carcinoma (HCC) Discharge Disposition: Home or Self Care (01) 11/29/2024 HCC Committee Review [facility] Transplant Department [address] [place] [address] Virginia Cm NP 11/15/2024 Orders Only [facility] Interventional Radiology [address] [place] [address] Marco Paul DO 11/15/2024 Orders Only [facility] Transplant [facility] [address] [place] [address] 77[address] Virginia Cm NP Hepatocellular carcinoma (HCC) (Primary Dx) 11/14/2024 Abstract [facility] Transplant Department [address] [place] [address] 17[address] Virginia Cm NP from Last 3 Months Immunizations Immunization Administration Dates Next Due COVID-19, Pfizer, mRNA, Biva lent Booster, PF, 30 mcg/0.3 mL dose (for age 12 y and up) 03/30/2022 Covid-19, Pfizer, mRNA, Terrell valent, PF 30 mcg/0.3 mL dose (for ages 12 and older) 01/24/2021,07/23/2020,07/01/2020 Covid-19, Pfizer, mRNA, Terrell valent, PF, 30 mcg/0.3 mL dose, poncho-sucrose (COMIRNATY)(for ages 12 and older) 07/18/2021 Covid-19, Pfizer, mRNA, Poncho -sucrose Vaccine, PF, 30 mcg/0.3 mL (for age 12 y and up) 01/07/2024,01/15/2023 Influenza, High Dose Seasona l, Preservative Free (FLUZONE HIGH-DOSE) 01/07/2024,02/05/2019,01/20/2017,2015 Influenza, High Dose Seasona l, Quadrivalent PF 01/15/2023,01/28/2022,01/22/2021 Influenza, Trivalent, Adjuva nted, PF (FLUAD) 02/07/2018 Pneumococcal Conjugate Vacci ne, 13 Valent 08/22/2016 Pneumococcal conjugate PCV20,polysaccharide [id number] conjugate, adjuvant, PF (Prevnar 20) 12/08/2021 RSV vaccine, recombinant, pr otein subunit RSVpreF, adjuvant reconstituted, 0.5 mL, PF 01/15/2023 Tetanus and Diphtheria Toxoi ds, Adsorbed, Preservative Free, for Adult Use (5 Lf of Tetanus Toxoid and 2 Lf of Diphtheria Toxoid) 02/06/2018 Family History Medical History Relation Name Comments Colon cancer Brother Colon cancer Mother Colon cancer Sister Relation Name Status Comments Brother Father Mother Sister Social History Tobacco Use Types Packs/Day Years Used Date Smoking Tobacco: Former Cigarettes Q uit: 1997 Smokeless Tobacco: Never Tobacco Cessation:Counseling Given: Not Answered Alcohol Use Standard Drinks/Week Comments Not Currently 0 (1 standard drink = 0.6 oz pur e alcohol) quit 1997 Sex and Gender Information Value Date Recorded Sex Assigned at Male 11/09/2024 11:59 AM EDT Legal Sex Male 11:58 AM EDT Gender Identity Male 11/13/2024 9:46 AM EDT Sexual Orientation Straight 12/05/2024 2: 22 PM EDT Last Filed Vital Signs Vital Sign Reading Time Taken Comments Blood Pressure 131/83 01/23/2025 5:00 PM EDT Pulse 62 01/23/2025 5:00 PM EDT Temperature 36.5 C (97.7 F) 01/23/2025 8:30 AM EDT Respiratory Rate 18 01/23/2025 5:00 PM EDT Oxygen Saturation 95% 01/23/2025 5:00 PM EDT Inhaled Oxygen Concentration - - Weight 101.6 kg (224 lb) 01/23/2025 8:30 AM EDT Height 177.8 cm (5' 10 ) 01/23/2025 8:30 AM EDT Body Mass Index 32.14 01/23/2025 8:30 AM EDT Plan of Treatment Health Maintenance Due Date Last Done Comments Hepatitis C Screening 1945 Zoster Vaccines (1 of 2) 09/06/1966 DTaP,Tdap,and Td Vaccines (1 - Tdap) 02/07/2018 02/06/2018 Alcohol/Substance Use Screening 04/11/2024 Depression Screening and Follow-Up 04/11/2024 Health Care Proxy Review 04/11/2024 Social Drivers of Health Annual Screening 04/11/2024 COVID-19 Vaccine ( season) 2024 01/07/2024, 01/15/2023, 03/30/2022, Additional history exists Influenza Vaccine (#1) 2024 , 01/15/2023, 01/28/2022, Additional history exists Basic Metabolic Panel 01/16/2026 01/16/2025, 025 Pneumococcal Vaccine: 50+ Years Completed 12/08/2021, 08/22/2016 RSV Vaccine (60+ years old and patients) Completed 01/15/2023 Hepatitis B Vaccines Aged Out No long er eligible based on patient's age to complete this topic Medical Devices Implanted Type Area Regrinder Device Identifier Shelf Expiration Date Model / Serial / Lot Vascular Occluder [id number] Briceno - [id number] Implanted:Qty: 1 on 01/16/2025 at [facility] Implant [facility] [id number] 05/22/2026 BRICENO-3 [id number] Vascular Occluder [id number] Briceno - [id number] Implanted:Qty: 1 on 01/16/2025 at [facility] Implant [facility] [id number] 09/18/2025 BRICENO-3 / [id number] Coil Packing Randi J-Soft 5cm Pod - [id number] Implanted:Qty: 1 on 01/23/2025 at [facility] Implant [employer] [id number] 09/14/2030 [id number] / / [id number] Coil Packing Randi J-Soft 5cm Pod - [id number] Implanted:Qty: 1 on 01/23/2025 at [facility] Implant [employer] [id number] 10/13/2030 RBYPODJ5 / / [id number] Explanted Type Area Regrinder Device Identifier Shelf Expiration Date Model / Serial / Lot Handpiece Single Pack Briceno - [id number] Explanted:Qty: 1 on 01/16/2025 at [facility] Implant [facility] [id number] 05/23/2026 BRICENO-HP -1 / / [id number] Guidewire Hydrophilic Coated Standard Flexible Double Angle Tip Sterile 90/60 Degree [id number] Glidewire Gt - [id number] Explanted:2024 at [facility] (Quantity not on file) Implant [employer] [id number] 04/10/2025 [id number] / / [id number] Procedures * Due to [place] state law, this organization might not be sharing negative HIV tests. Procedure Name Priority Date/Time Associated Diagnosis Comments NM Y90 DOSIMETRY BASIC STAT 4:01 PM EDT Hepatocellular carcinoma NM Y90 SIRSPHERES THERAPY STAT 01/23/2025 4:00 PM EDT Hepatocellular carcinoma NM LIVER LUNG SHUNT MAPPING SPECT-CT STAT 01/16/2025 4:07 PM EDT Hepatocellular carcinoma IR PRE-Y90 MAPPING STAT 01/16/2025 3: 15 PM EDT Hepatocellular carcinoma AFP TUMOR MARKER STAT 01/16/2025 8:57 AM EDT Hepatocellular carcinoma (HCC) PROTIME-INR STAT 01/16/2025 8:57 AM EDT Hepatocellular carcinoma (HCC) HEPATIC FUNCTION PANEL STAT 8:57 AM EDT Hepatocellular carcinoma (HCC) BASIC METABOLIC PANEL STAT 01/16/2025 8:57 AM EDT Hepatocellular carcinoma (HCC) CBC STAT 01/16/2025 8:57 AM EDT Hepatocellular carcinoma (HCC) TISSUE EXAM Routine 12/11/2024 12:51 PM EDT Hepatocellular carcinoma (HCC) IR US GUIDED BIOPSY LIVER STAT 12/11/2024 12:44 PM EDT Hepatocellular carcinoma (HCC) ALPHA-FETOPROTEIN (AFP) AND AFP-L3 [id number] Routine 11/29/2024 2:54 PM EDT Hepatocellular carcinoma (HCC) COMPREHENSIVE METABOLIC PANEL Routine 11/29/2024 2:54 PM EDT Hepatocellular carcinoma (HCC) CBC AUTO DIFFERENTIAL Routine 11/29/2024 2:54 PM EDT Hepatocellular carcinoma (HCC) PROTIME-INR Routine 11/29/2024 2:54 PM EDT Hepatocellular carcinoma (HCC) CT CHEST W CONTRAST STAT 11/29/2024 1 :17 PM EDT Hepatocellular carcinoma (HCC) from Last 3 Months Results * Due to [place] state law, this organization might not be sharing negative HIV tests. * NM 90 Sirspheres Dosimetry (01/23/2025 4:01 PM EDT) Anatomical Region Laterality Modality Body Nuclear Medicine 01/29/2025 3:44 PM EDT Narrative 01/29/2025 4:10 PM EDT Yttrium-90 Sirsphere liver dose calculation Diagnosis: Hepatocellular carcinoma Pulmonary shunt: 6% Reduce dose by 0 Treatment is to be given to segment 7 of the liver Targeted volume is 170 cc. Desired dose to targeted volume is 340 cuenca The activity required is 1.31 gigabecquerels (35.47 mCi). If this radiology report contains a blank impression section, it is an incomplete radiology report. Please contact the interpreting radiologist or applicable radiology division as soon as possible to obtain the completed interpretation. Workstation ID: [id number] Resulting Agency Comment [id number] Procedure Note Yuriy Nguyen MD - 01/29/2025 Yttrium-90 Sirsphere liver dose calculation Diagnosis: Hepatocellular carcinoma Pulmonary shunt: 6% Reduce dose by 0 Treatment is to be given to segment 7 of the liver Targeted volume is 170 cc. Desired dose to targeted volume is 340 cuenca The activity required is 1.31 gigabecquerels (35.47 mCi). If this radiology report contains a blank impression section, it is anincomplete radiology report. Please contact the interpreting radiologistor applicable radiology division as soon as possible to obtain thecompleted interpretation. Workstation ID: [id number] us Yuriy Mosre MD IMG NM PROCEDU RES Final Result * NM Liver Tumor Therapy Y90 Sirspheres (01/23/2025 4:00 PM EDT) Anatomical Region Laterality Modality Body Nuclear Medicine 01/23/2025 3:26 PM EDT Narrative 01/24/2025 2:54 PM EDT INDICATION: 79 years year-old male status post right embolization of a right hepatic HCC. RADIOPHARMACEUTICAL ADMINISTRATION: After right hepatic arterial catheterization by Drs. Moser and Arvind, the patient was administered 38.2 mCi of Y90 Theraspheres through a running hepatic arterial line. IMAGING TECHNIQUE: A subsequent whole body and SPECT-CT Bremsstrahlung image of the abdomen were acquired for anatomical correlation. COMPARISON: MAA Premapping SPECT-CT 01/16/2025, outside MRI 10/28/2024.. POST-THERAPY IMAGING: Whole body imaging: Tracer uptake in the right hepatic lobe. SPECT-CT of the abdomen: Tracer uptake in the right hepatic lobe, predominantly at the dome in segments 8 and 5/6 medial to coils from recent embolization. The distribution of the administered radiopharmaceutical grossly matches the distribution of MAA on prior pre-mapping including activity in segment 5. No evidence of nontarget tracer accumulation. Other findings: Medium-sized hiatal hernia.. CONCLUSION: 1. SirSpheres embolization to the right hepatic lobe predominantly in segments 8 and 5/6. No evidence of nontarget tracer accumulation. IRisa, have reviewed the examination and concur with the findings as reported or so edited. Trainee: Louis Tinsley If this radiology report contains a blank impression section, it is an incomplete radiology report. Please contact the interpreting radiologist or applicable radiology division as soon as possible to obtain the completed interpretation. Workstation ID: [id number] Resulting Agency Comment [id number] Procedure Note Risa Rizo MD - 01/24/2025 INDICATION: 79 years year-old male status post right embolization of aright hepatic HCC. RADIOPHARMACEUTICAL ADMINISTRATION: After right hepatic arterial catheterization by Drs. Shanti Schulz, the patient was administered 38.2 mCi of Y90 Theraspheresthrough a running hepatic arterial line. IMAGING TECHNIQUE: A subsequent whole body and SPECT-CT Bremsstrahlungimage of the abdomen were acquired for anatomical correlation. COMPARISON: MAA Premapping SPECT-CT 01/16/2025, outside MRI 10/28/2024.. POST-THERAPY IMAGING: Whole body imaging: Tracer uptake in the right hepatic lobe. SPECT-CT of the abdomen: Tracer uptake in the right hepatic lobe,predominantly at the dome in segments 8 and 5/6 medial to coils fromrecent embolization. The distribution of the administeredradiopharmaceutical grossly matches the distribution of MAA on priorpre-mapping including activity in segment 5. No evidence of nontargettracer accumulation. Other findings: Medium-sized hiatal hernia.. CONCLUSION: 1. SirSpheres embolization to the right hepatic lobe predominantly insegments 8 and 5/6. No evidence of nontarget tracer accumulation. Risa Singh, have reviewed the examination and concur with thefindings as reported or so edited. Trainee: Louis Tinsley If this radiology report contains a blank impression section, it is anincomplete radiology report. Please contact the interpreting radiologistor applicable radiology division as soon as possible to obtain thecompleted interpretation. Workstation ID: [id number] Yuriy Rome Moser MD IMG NM PROCEDU RES Final Result * NM Liver Lung Shunt Mapping SPECT CT (01/16/2025 4:07 PM EDT) Anatomical Region Laterality Modality Body Nuclear Medicine 01/16/2025 4:22 PM EDT Addenda Addendum by Nilesh Cochran MD PhD on 01/24/2025 11:46 AM EDT 4 mCi of Tc 99m MAA were administered. If this radiology report contains a blank impression section, it is an incomplete radiology report. Please contact the interpreting radiologist or applicable radiology division as soon as possible to obtain the completed interpretation. Workstation ID: [id number] Impressions 01/16/2025 4:23 PM EDT FINDINGS/IMPRESSION: Tracer activity is confined to the right lobe of the liver. No significant extrahepatic activity is seen in the abdomen. The lung/liver ratio is 6.0%. Thank you for the courtesy of this referral Nilesh Cochran MD, PhD If this radiology report contains a blank impression section, it is an incomplete radiology report. Please contact the interpreting radiologist or applicable radiology division as soon as possible to obtain the completed interpretation. Workstation ID: [id number] Narrative 01/16/2025 4:23 PM EDT EXAM: MAA Mapping for Y90 Therasphere therapy INDICATION: History of hepatocellular carcinoma PHARMACEUTICAL: After hepatic arterial catheterization, the patient was administered for mCi of 99mTc-MAA through the arterial catheter. There were no immediate adverse effects. Planar imaging and SPECT-CT of the abdomen were obtained. Resulting Agency Comment [id number] Procedure Note Nilesh Cochran MD PhD - 01/16/2025 EXAM: MAA Mapping for Y90 Therasphere therapy INDICATION: History of hepatocellular carcinoma PHARMACEUTICAL: After hepatic arterial catheterization, the patient wasadministered for mCi of 99mTc-MAA through the arterial catheter. Therewere no immediate adverse effects. Planar imaging and SPECT-CT of theabdomen were obtained. IMPRESSION: FINDINGS/IMPRESSION: Tracer activity is confined to the right lobe of the liver. No significantextrahepatic activity is seen in the abdomen. The lung/liver ratio is 6.0%. Thank you for the courtesy of this referral Nilesh Cochran MD, PhD If this radiology report contains a blank impression section, it is anincomplete radiology report. Please contact the interpreting radiologistor applicable radiology division as soon as possible to obtain thecompleted interpretation. Workstation ID: [id number] us Yuriy Moser MD IM NM PROCEDU RES Edited Result - Final * IR Pre-Y90 Mapping (01/16/2025 3:15 PM EDT) Anatomical Region Laterality Modality X-Ray Angiograph y 01/16/2025 3:12 PM EDT Impressions 01/17/2025 1:35 PM EDT Radioembolization preparatory angiography with administration of [id number]. Tumoral supply arising from three upgoing segment 8 branches Briceno #3 occlusion devices placed in two downgoing branches which did not contribute to tumor supply. Plan: Patient to be sent to nuclear medicine for radioisotope imaging and calculation of lung shunt fraction TR band management per protocol PROCEDURE SUMMARY: - Arterial access with ultrasound guidance - Aortography: Not performed - Visceral angiography: Celiac and superior mesenteric angiography - Selective hepatic angiography: Common and proper hepatic angiography - Superselective angiography: Segment 8 branches of right hepatic artery - Embolization and post-embolization angiography: Embolization with post- embolization angiography as described below - Technetium-99m MAA administration as described below - Additional procedure(s): Embolization of two downgoing branches as described PROCEDURE DETAILS: Pre-procedure Consent: Informed consent for the procedure including risks, benefits and alternatives was obtained and time-out was performed prior to the procedure. Preparation: The site was prepared and draped using maximal sterile barrier technique including cutaneous antisepsis. Anesthesia/sedation Level of anesthesia/sedation: Moderate sedation (conscious sedation) Anesthesia/sedation administered by: Radiology nursing staff or independent trained observer under attending supervision with continuous monitoring of the patient's level of consciousness and physiologic status Total intra-service sedation time (minutes): 180 Access Local anesthesia was administered. The vessel was sonographically evaluated and judged to be patent. Real time ultrasound was used to visualize needle entry into the vessel and a permanent image was stored. A 5 congolese sheath was placed. Laterality: Left Vessel accessed: Radial artery-Barbeau B Access technique: Micropuncture set with 21 gauge needle Access cocktail: Radial access cocktail consisting of 2.5 mg verapamil 200 mcg nitroglycerin, and 3000 units of heparin, homogenized with patient's blood in a Mixture volume mL syringe, was administered slowly via the access sheath. Aortography Indication for aortography: Not performed Vessel catheterized: Not performed Findings: Not applicable Selective angiography The hepatic arterial system was catheterized using MG1 glidecath; superselective angiography was performed with Trinav microcatheter. Indication for angiography: Diagnostic angiography - There was no prior catheter-based angiographic study available and a full diagnostic study was performed. The decision to intervene was based on the diagnostic study. Variant anatomy: None Vessel catheterized: Common hepatic artery Findings: Conventional anatomy with tumor supply arising from right hepatic artery. Vessel catheterized: Right hepatic artery Findings: Tumoral supply arising from upgoing segment 8 branches Vessel catheterized: Two downgoing branches of right hepatic artery Findings: No tumoral supply, excluded from mapping with briceno occlusion devices, Advanced imaging Localized intra-operative cone-beam CT was performed with contrast prior to embolization. Images were transmitted to an independent workstation for 3D rendering and image review under concurrent physician supervision. Artery/Arteries injected: Right hepatic artery Indication for advanced imaging: Determine vascular anatomy and/or tumor supply Findings: Unable to capture lesion within field of view due to patient positioning limitations Embolization Catheter position: Downgoing branches of right hepatic artery Embolization intent: Prevention of non-target embolization Embolic(s): A Briceno # 3 device was placed in both downgoing branches Angiographic endpoint: Near-stasis (not static, but contrast visible for at least 5 heartbeats) Completion angiography Vessel catheterized: Right hepatic artery Findings: Tumoral supply by 3 upgoing branches. Near-stasis of downgoing branches. Radioisotope administration Radioisotope: Technetium-99m MAA Catheter position for administration: Segment 8 artery, proximal to trifurcation of vessels supplying tumor Radioisotope activity administered at this location (mCi): 4 Closure Access site angiography performed: No Findings: Patent vessel with appropriate access level Arterial closure technique: Radial compression device Hemostasis achieved from closure technique: Yes Duration of manual compression (minutes): 0 Contrast Contrast agent: Omnipaque 350 Contrast volume (mL): 70 Radiation Dose Fluoroscopy time (minutes): 21.4 Reference air kerma (mGy): 1770 Kerma area product (Gy-cm2): 21.4 Additional Details Additional description of procedure: None Registry event: Z/3/f Device used: None Equipment details: None Unique Device Identifiers: Not available Specimens removed: None Estimated blood loss (mL): Less than 10 Standardized report: [id number] Attestation Signer name: Yuriy Moser I attest that I was present for the entire procedure. I reviewed the stored images and agree with the report as written. I, Yuriy Moser, have reviewed the examination and concur with the findings as reported or so edited. Trainee: Rafal Funez If this radiology report contains a blank impression section, it is an incomplete radiology report. Please contact the interpreting radiologist or applicable radiology division as soon as possible to obtain the completed interpretation. Workstation ID: [id number] Narrative 01/17/2025 1:35 PM EDT PROCEDURE: Hepatic radioembolization preparatory angiogram and Qp10a-ORH administration Procedural Personnel Attending physician(s): Yuriy Moser Fellow physician(s): None Resident physician(s): Rafal Funez Advanced practice provider(s): None Pre-procedure diagnosis: Hepatocellular carcinoma Post-procedure diagnosis: Same Indication: Mapping angiogram in preparation for radioembolization Additional clinical history: Regino Noel is a 79 y.o. male with a PMHx of HCV s/p treatment in 2003 with SVR who was found to have a concerning liver lesion on routine screening. Subsequent biopsy of the segment 8 lesion showed HCC. Complications: No immediate complications. Resulting Agency Comment [id number] Procedure Note Yuriy Nguyen MD - 01/17/2025 PROCEDURE: Hepatic radioembolization preparatory angiogram and [id number] Procedural Personnel Attending physician(s): Yuriy Moser Fellow physician(s): None Resident physician(s): Rafal Funez Advanced practice provider(s): None Pre-procedure diagnosis: Hepatocellular carcinoma Post-procedure diagnosis: Same Indication: Mapping angiogram in preparation for radioembolization Additional clinical history: Regino Noel is a 79 y.o. male with a PMHxof HCV s/p treatment in 2003 with SVR who was found to have a concerningliver lesion on routine screening. Subsequent biopsy of the segment 8lesion showed HCC. Complications: No immediate complications. IMPRESSION: Radioembolization preparatory angiography with administration [id number]. Tumoral supply arising from three upgoing segment 8 branches Briceno #3 occlusion devices placed in two downgoing branches which did notcontribute to tumor supply. Plan: Patient to be sent to nuclear medicine for radioisotope imaging andcalculation of lung shunt fraction TR band management per protocol PROCEDURE SUMMARY: - Arterial access with ultrasound guidance - Aortography: Not performed - Visceral angiography: Celiac and superior mesenteric angiography - Selective hepatic angiography: Common and proper hepatic angiography - Superselective angiography: Segment 8 branches of right hepatic artery - Embolization and post-embolization angiography: Embolization withpost- embolization angiography as described below - Technetium-99m MAA administration as described below - Additional procedure(s): Embolization of two downgoing branches asdescribed PROCEDURE DETAILS: Pre-procedure Consent: Informed consent for the procedure including risks, benefits andalternatives was obtained and time-out was performed prior to theprocedure. Preparation: The site was prepared and draped using maximal sterilebarrier technique including cutaneous antisepsis. Anesthesia/sedation Level of anesthesia/sedation: Moderate sedation (conscious sedation) Anesthesia/sedation administered by: Radiology nursing staff orindependent trained observer under attending supervision with continuousmonitoring of the patient's level of consciousness and physiologicstatus Total intra-service sedation time (minutes): 180 Access Local anesthesia was administered. The vessel was sonographicallyevaluated and judged to be patent. Real time ultrasound was used tovisualize needle entry into the vessel and a permanent image was stored. A5 congolese sheath was placed. Laterality: Left Vessel accessed: Radial artery-Barbeau B Access technique: Micropuncture set with 21 gauge needle Access cocktail: Radial access cocktail consisting of 2.5 mg verapamil 200mcg nitroglycerin, and 3000 units of heparin, homogenized with patient'sblood in a Mixture volume mL syringe, was administered slowly via theaccess sheath. Aortography Indication for aortography: Not performed Vessel catheterized: Not performed Findings: Not applicable Selective angiography The hepatic arterial system was catheterized using MG1 glidecath;superselective angiography was performed with Trinav microcatheter. Indication for angiography: Diagnostic angiography - There was no priorcatheter- based angiographic study available and a full diagnostic studywas performed. The decision to intervene was based on the diagnosticstudy. Variant anatomy: None Vessel catheterized: Common hepatic artery Findings: Conventional anatomy with tumor supply arising from righthepatic artery. Vessel catheterized: Right hepatic artery Findings: Tumoral supply arising from upgoing segment 8 branches Vessel catheterized: Two downgoing branches of right hepatic artery Findings: No tumoral supply, excluded from mapping with briceno occlusiondevices, Advanced imaging Localized intra-operative cone-beam CT was performed with contrast priorto embolization. Images were transmitted to an independent workstation for3D rendering and image review under concurrent physician supervision. Artery/Arteries injected: Right hepatic artery Indication for advanced imaging: Determine vascular anatomy and/or tumorsupply Findings: Unable to capture lesion within field of view due to patientpositioning limitations Embolization Catheter position: Downgoing branches of right hepatic artery Embolization intent: Prevention of non-target embolization Embolic(s): A Briceno # 3 device was placed in both downgoing branches Angiographic endpoint: Near-stasis (not static, but contrast visible forat least 5 heartbeats) Completion angiography Vessel catheterized: Right hepatic artery Findings: Tumoral supply by 3 upgoing branches. Near-stasis of downgoingbranches. Radioisotope administration Radioisotope: Technetium-99m MAA Catheter position for administration: Segment 8 artery, proximal totrifurcation of vessels supplying tumor Radioisotope activity administered at this location (mCi): 4 Closure Access site angiography performed: No Findings: Patent vessel with appropriate access level Arterial closure technique: Radial compression device Hemostasis achieved from closure technique: Yes Duration of manual compression (minutes): 0 Contrast Contrast agent: Omnipaque 350 Contrast volume (mL): 70 Radiation Dose Fluoroscopy time (minutes): 21.4 Reference air kerma (mGy): 1770 Kerma area product (Gy-cm2): 21.4 Additional Details Additional description of procedure: None Registry event: Z// Device used: None Equipment details: None Unique Device Identifiers: Not available Specimens removed: None Estimated blood loss (mL): Less than 10 Standardized report: [id number] Attestation Signer name: Yuriy Moser I attest that I was present for the entire procedure. I reviewed thestored images and agree with the report as written. I, Yuriy Moser, have reviewed the examination and concur with thefindings as reported or so edited. Trainee: Rafal Funez If this radiology report contains a blank impression section, it is anincomplete radiology report. Please contact the interpreting radiologistor applicable radiology division as soon as possible to obtain thecompleted interpretation. Workstation ID: [id number] Virginia Cm NP IMG IR PROCEDURES Final Resu lt * AFP Tumor Marker (01/16/2025 8:57 AM EDT) Alpha Fetoprotein, Tumor Marker 2.0 <6.1 ng/mL 01/17/2025 9:30 AM EDT [facility] Comment: This test was performed using the Artur Kewanna chemiluminescent method. Values obtained from different assay methods cannot be used interchangeably. AFP levels, regardless of value, should not be interpreted as absolute evidence of the presence or absence of disease. Blood Structure of peripheral vein / Unknown Venipuncture / Unknown 01/16/2025 8:57 AM EDT 01/16/2025 9:13 AM EDT Narrative [facility] 01/17/2025 9:30 AM EDT [facility] Received Date: [place] [facility] BLOOD ORDERABLES Final Re sult [address], [place] [address], [place] [phone] [facility] [address], [place] [address], [place] [phone] * Protime-INR (01/16/2025 8:57 AM EDT) Only the most recent of2 resultswithin the time period is included. PT 10.7 9.6 - 12.4 Seconds 01/16/2025 9:32 AM EDT [facility] INR 1.0 0.9 - 1.1 01/16/2025 9:32 AM EDT [facility] Comment:The optimal therapeu tic INR range for patients treated with Vitamin K antagonists (VKAS, e.g., Warfarin) is 2.0 to 3.5. Discuss the desired range with your doctor/care team. Blood Structure of peripheral vein / Unknown Venipuncture / Unknown 01/16/2025 8:57 AM EDT 01/16/2025 9:13 AM EDT us [place] [facility] BLOOD ORDERABLES Final Re sult [facility] [address] [place] [address], [place] * CBC (01/16/2025 8:57 AM EDT) WBC 6.6 3.8 - 10.8 10*3/uL 01/16/2025 9:20 AM EDT [facility] RBC 5.02 4.20 - 5.80 10*6/uL 01/16/2025 9:20 AM EDT [facility] Hemoglobin 14.8 13.2 - 17.1 g/dL 01/16/2025 9:20 AM EDT [facility] Hematocrit 45.7 38.5 - 50.0 % 01/16/2025 9:20 AM EDT [facility] MCV 91.0 80.0 - 100.0 fL 01/16/2025 9:20 AM EDT [facility] MCH 29.5 27.0 - 33.0 pg 01/16/2025 9:20 AM EDT [facility] [employer] MCHC 32.4 32.0 - 36.0 g/dL 01/16/2025 9:20 AM EDT [facility] RDW 13.2 11.0 - 15.0 % 01/16/2025 9:20 AM EDT [facility] Platelets 198 140 - 400 10*3/uL 01/16/2025 9:20 AM EDT [facility] MPV 9.7 7.5 - 12.5 fL 01/16/2025 9:20 AM EDT [facility] Blood Structure of peripheral vein / Unknown Venipuncture / Unknown 01/16/2025 8:57 AM EDT 01/16/2025 9:13 AM EDT us [place] [facility] BLOOD ORDERABLES Final Re sult [facility] [address] [place] [address], * (ABNORMAL) Hepatic Function Panel (01/16/2025 8:57 AM EDT) Total Protein 7.7 6.0 - 8.0 g/dL 01/16/2025 9:43 AM EDT [facility] Albumin 4.3 3.5 - 5.2 g/dL 01/16/2025 9:43 AM EDT [facility] Globulin, Total 3.4 2.1 - 4.2 g/dL 01/16/2025 9:43 AM EDT [facility] Bilirubin, Total 0.8 0.2 - 1.2 mg/dL 01/16/2025 9:43 AM EDT [facility] Bilirubin, Direct 0.3 <=0.4 mg/dL 01/16/2025 9:43 AM EDT [facility] Alkaline Phosphatase 190(H) 35 - 129 U/L 01/16/2025 9:43 AM EDT [facility] AST 54(H) 10 - 40 U/L 01/16/2025 9:43 AM EDT [facility] ALT 58(H) 10 - 40 U/L 01/16/2025 9:43 AM EDT [facility] Bilirubin, Indirect 0.50 <=0.70 mg/dL 01/16/2025 9:43 AM EDT [facility] A/G Ratio 1.3(L) 1.5 - 3.0 01/16/2025 9:43 AM EDT [facility] Blood Structure of peripheral vein / Unknown Venipuncture / Unknown 01/16/2025 8:57 AM EDT 01/16/2025 9:13 AM EDT us [facility] BLOOD ORDERABLES Final Re sult [facility] [address] [place] [address], [place] * (ABNORMAL) Basic Metabolic Panel (01/16/2025 8:57 AM EDT) NA 144 135 - 145 mmol/L 01/16/2025 9:43 AM EDT [facility] K 4.5 3.5 - 5.3 mmol/L 01/16/2025 9:43 AM EDT [facility] Cl 108 97 - 110 mmol/L 01/16/2025 9:43 AM EDT [facility] CO2 24 22 - 32 mmol/L 01/16/2025 9:43 AM EDT [facility] BUN 25(H) 7 - 23 mg/dL 01/16/2025 9:43 AM EDT [facility] Creatinine 1.24 0.60 - 1.30 mg/dL 01/16/2025 9:43 AM EDT [facility] Glucose 117(H) 65 - 99 mg/dL 01/16/2025 9:43 AM EDT [facility] Calcium 9.6 8.6 - 10.5 mg/dL 01/16/2025 9:43 AM EDT [facility] Anion Gap 12 5 - 15 01/16/2025 9:43 AM EDT [facility] eGFR 60 >=60 mL/min/1. 73m2 01/16/2025 9:43 AM EDT [facility] Comment:The estimated glomer ular filtration rate (eGFR) is calculated using a new formula developed by the NKF-ASN task force to eliminate race-based correction factors. The new formula uses serum/plasma creatinine, age, and gender to determine eGFR. A value below 60mls/min might indicate kidney disease and will be flagged. For additional information, see Diaz et al, Am J Kidney Dis. 2021;79(2):268- 288, A Unifying Approach for GFR estimation: Recommendations of the NKF-ASN Task Force on Reassessing the Inclusion of Race in Diagnosing Kidney Disease . Blood Structure of peripheral vein / Unknown Venipuncture / Unknown 01/16/2025 8:57 AM EDT 01/16/2025 9:13 AM EDT us [place] [facility] BLOOD ORDERABLES Final Re sult [facility] [address] [place] [address], [place] * (ABNORMAL) Tissue Exam (12/11/2024 12:51 PM EDT) Final Diagnosis Liver, Mass, Biopsy: - Hepatocellular carcinoma, moderately differentiated, pseudoglandular pattern. See note. Note: The patient s history of chronic hepatitis C infection (treated in 2003) is noted. Imaging studies demonstrate a 5.5 cm liver mass. Immunohistochemical stains show that the neoplastic cells are positive for Hepatocyte Specific Antigen (HSA), Arginase-1 (patchy), Glypican-3 (patchy) and CK7 (patchy), while negative for Hepatocyte Nuclear Factor 1? (HNF-1?) and CK20. CK7 shows focal positivity, a feature may be seen in pseudoglandular hepatocellular carcinoma and reflects partial biliary differentiation. Reticulum stain demonstrates a disrupted reticulin framework within the lesion. The overall findings support the above diagnosis. Case was reviewed intradepartmentally. [facility] MANUAL 10:44 AM T [facility] at 1044 EDT Clinical History 79yo liver lesion conerning for HCC [facility] MANUAL 10:44 AM EDT [facility] Gross Description 1. Liver Received in formalin and labeled with the patient's name, date of , MRN, and liver are numerous pink-brown cylindrical soft tissue cores ranging in size from 0.2 x 0.1 cm to 1.2 x 0.1 cm. The specimen is entirely submitted in 1A and 1B. [facility] MANUAL 10:44 AM T [facility] Gross Description User Grossing complete by Angeles Ayala on 12/11/2024 3:50 PM [facility] MANUAL 10:44 AM EDT [facility] Best Block for Ancillary Studies 1A, 1B [facility] MANUAL 10:44 AM EDT [facility] Embedded Images [facility] MANUAL 10:44 AM T [facility] Disclaimer Some of these tests were developed and their performance characteristics determined by the Immunoperoxidase/Hist ology Laboratory of [facility]. They have not been cleared or approved by the U.S. Food and Drug Administration. The FDA has determined that such clearance or approval is not necessary. This test is used for clinical purposes. It should not be regarded as investigational or for research. This laboratory is certified under the Clinical Laboratory Improvement Amendments of 1988 (CLIA-88) as qualified to perform high complexity clinical laboratory testing. [facility] MANUAL 10:44 AM EDT [facility] Resulting Agency Case was signed out at [facility], Department of Pathology, [employer] 3 CLIA [id number] [facility] MANUAL 5 10:44 AM EDT [facility] Abnormal Yes(A) (none) [facility] MANUAL 5 10:44 AM EDT [facility] Report Header Surgical Pathology Report Case: [id number] Authorizing Provider: Odalys Olsen NP Collected: 12/11/2024 1251 Ordering Location: [facility] Received: 12/11/2024 1308 Interventional Radiology Pathologist: Vandana Resendiz MD PhD Specimen: Liver 10:44 AM EDT [facility] Tissue Liver structure / Unknown Non-Blood Collection / Unknown 12/11/2024 12:51 PM EDT 12/11/2024 1:08 PM EDT us Odalys Olsen NP LAB PATHOLOGY/CYTOLOGY ORD ERABLES Final Result [facility] [address] [place] [address], [place] * IR US Guided Biopsy Liver (12/11/2024 12:44 PM EDT) Anatomical Region Laterality Modality Body Ultrasound 12/11/2024 12:5 5 PM EDT Impressions 12/14/2024 7:30 AM EDT Ultrasound-guided biopsy of liver segment 8 lesion. Plan: Specimen(s) sent for evaluation. PROCEDURE SUMMARY: - Percutaneous US-guided coaxial core needle biopsy - Additional procedure(s): None PROCEDURE DETAILS: Pre-procedure Reference imaging for biopsy target: None Consent: Informed consent for the procedure including risks, benefits and alternatives was obtained and time-out was performed prior to the procedure. Preparation: The site was prepared and draped using maximal sterile barrier technique including cutaneous antisepsis. Anesthesia/sedation Level of anesthesia/sedation: Moderate sedation (conscious sedation) Anesthesia/sedation administered by: Radiology nursing staff or independent trained observer under attending supervision with continuous monitoring of the patient's level of consciousness and physiologic status Total intra-service sedation time (minutes): 34 Imaging prior to biopsy The patient was positioned supine. Initial imaging was performed. Biopsy target: - Organ or target location: Liver - Laterality: Single Organ - Maximal diameter (cm): 6.8 Other findings: None Biopsy Local anesthesia was administered. Under US guidance, the biopsy needle was advanced to the target and biopsy was performed. Coaxial needle: 17 gauge Core needle biopsy device: Isis Parenting Core needle size: 18 gauge Number of core specimens: 6 Fine needle aspiration device: Not applicable Fine needle size: Not applicable Number of FNA specimens: Not applicable On-site assessment of biopsy adequacy: No Additional sampling recommendations: None Preliminary assessment of sample adequacy: Not applicable Needle removal The biopsy needle was removed and a sterile dressing was applied. Tract embolization: Gelfoam slurry Imaging following biopsy Immediate post-biopsy ultrasound was performed. Post-biopsy imaging findings: Expected post biopsy changes Additional Details Additional description of procedure: None Registry event: V/3/g Device used: None Equipment details: None Unique Device Identifiers: Not available Specimens removed: Biopsy samples as detailed above Estimated blood loss (mL): Less than 10 Standardized report: [email or web address] Attestation Signer name: Josué Jacome I attest that I was present for the entire procedure. I reviewed the stored images and agree with the report as written. I, Josué Jacome, have reviewed the examination and concur with the findings as reported or so edited. Trainee: Louis Tinsley If this radiology report contains a blank impression section, it is an incomplete radiology report. Please contact the interpreting radiologist or applicable radiology division as soon as possible to obtain the completed interpretation. Workstation ID: [id number] Narrative 12/14/2024 7:30 AM EDT PROCEDURE: Ultrasound-guided biopsy Procedural Personnel Attending physician(s): Josué Jacome Fellow physician(s): None Resident physician(s): Louis cobos Advanced practice provider(s): None Procedure Date (): 12/11/2024 Pre-procedure diagnosis: HCV/cirrhosis with segment 8 liver lesion. Post-procedure diagnosis: Same Indication: Histopathologic diagnosis Previous biopsy of same target (QCDR): No Additional clinical history: None Complications: No immediate complications. 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 Post-procedure diagnosis: Same Indication: Histopathologic diagnosis Previous biopsy of same target (QCDR): No Additional clinical history: None Complications: No immediate complications. IMPRESSION: Ultrasound-guided biopsy of liver segment 8 lesion. Plan: Specimen(s) sent for evaluation. PROCEDURE SUMMARY: - Percutaneous US-guided coaxial core needle biopsy - Additional procedure(s): None PROCEDURE DETAILS: Pre-procedure Reference imaging for biopsy target: None Consent: Informed consent for the procedure including risks, benefits andalternatives was obtained and time-out was performed prior to theprocedure. Preparation: The site was prepared and draped using maximal sterilebarrier technique including cutaneous antisepsis. Anesthesia/sedation Level of anesthesia/sedation: Moderate sedation (conscious sedation) Anesthesia/sedation administered by: Radiology nursing staff orindependent trained observer under attending supervision with continuousmonitoring of the patient's level of consciousness and physiologicstatus Total intra-service sedation time (minutes): 34 Imaging prior to biopsy The patient was positioned supine. Initial imaging was performed. Biopsy target: - Organ or target location: Liver - Laterality: Single Organ - Maximal diameter (cm): 6.8 Other findings: None Biopsy Local anesthesia was administered. Under US guidance, the biopsy needlewas advanced to the target and biopsy was performed. Coaxial needle: 17 gauge Core needle biopsy device: Isis Parenting Core needle size: 18 gauge Number of core specimens: 6 Fine needle aspiration device: Not applicable Fine needle size: Not applicable Number of FNA specimens: Not applicable On-site assessment of biopsy adequacy: No Additional sampling recommendations: None Preliminary assessment of sample adequacy: Not applicable Needle removal The biopsy needle was removed and a sterile dressing was applied. Tract embolization: Gelfoam slurry Imaging following biopsy Immediate post-biopsy ultrasound was performed. Post-biopsy imaging findings: Expected post biopsy changes Additional Details Additional description of procedure: None Registry event: V/3/g Device used: None Equipment details: None Unique Device Identifiers: Not available Specimens removed: Biopsy samples as detailed above Estimated blood loss (mL): Less than 10 Standardized report: [email or web address] Attestation Signer name: Josué Jacome I attest that I was present for the entire procedure. I reviewed thestored images and agree with the report as written. I, Josué Jacmoe, have reviewed the examination and concur with thefindings as reported or so edited. Trainee: Louis Tinsley If this radiology report contains a blank impression section, it is anincomplete radiology report. Please contact the interpreting radiologistor applicable radiology division as soon as possible to obtain thecompleted interpretation. Workstation ID: [id number] us Virginia Cm NP IMG IR PROCEDURES Final Resu lt * (ABNORMAL) Alpha-Fetoprotein (AFP) and AFP-L3 (11/29/2024 2:54 PM EDT) AFP 1.4(L) 1.6 - 4.5 ng/mL 12/04/2024 6:39 PM EDT [facility] AFP-L3 SEE NOTE 0.5 - 9.9 % 12/04/2024 6:39 PM EDT [facility] Comment: NO VALUE DETERMINED The micro-total analysis system ([employer]) employs microchip capillary electrophoresis to quantitatively measure AFP and AFP-L3% by immunochemical techniques. The assay principle involves DNA-coupled antibodies and dye labeled antibodies, which react with proteins in liquid phase within the microchannels. Both analytes are quantified using laser-induced fluorescence. Instrument and associated reagents are supplied by [place], [place], [place]. Patients with elevated AFP-L3% values (>=10%) have been shown to have an increased risk of developing hepatocellular carcinoma (HCC). In a selected group of patients, the risk of developing HCC was 48.8% with an elevated AFP-L3% and was 7.0% with a negative AFP-L3% result. Limitations of Procedure: 1. The AFP-L3% value is not calculated when the AFP-L3 concentration is below 0.3 ng/mL. In such cases the AFP-L3% result field will indicate NO VALUE DETERMINED 2. Heterophilic antibodies in human serum can react with the immunoglobulins included in the assay components causing interference with in vitro immunoassays. Samples from patients routinely exposed to animals or animal serum products can demonstrate this type of interference and can potentially cause an anomalous result. The Mobile Medical Testing System has been formulated to minimize the risk of the interference; however, potential interactions between rare sera and ingredients can occur. 3. For diagnostic purposes, the results obtained from this assay should always be used and interpreted in conjunction with clinical examination, patient medical history, and other findings. 4. can cause high values of AFP-L3% and AFP is not interpretable in females. 5. AFP producing tumors other than HCC can show high values of AFP-L3% and AFP. 6. Samples from patients having acute hepatitis and fulminant hepatitis can show high values of AFP-L3% and AFP. 7. It is recommended that this assay be used in conjunction with imaging studies for clinical diagnosis. 8. Liver diseases caused by other etiologies such as alcoholic liver disease, hemachromatosis, Abhishek's disease, autoimmune hepatitis and steatohepatisis have not been studied with the assay. 9. The assay is linear for AFP concentration of 0.3 to 1000 ng/mL. 10. Values obtained with different assay methods or kits cannot be used interchangeably. Blood Structure of peripheral vein / Unknown Venipuncture / Unknown 11/29/2024 2:54 PM EDT 11/29/2024 3:09 PM EDT Narrative DAVID WHITTINGTON - 12/04/2024 6:39 PM EDT [facility] Received Date: Virginia Cm [facility] LAB BLOOD ORDERABLES Final R esult DAVID WHITTINGTON [address] [place] [address] [address] Floor, [place] [address], [place] [phone] [facility] [address] [place] [address], [place] [phone] * CBC Auto Differential (11/29/2024 2:54 PM EDT) WBC 6.9 3.8 - 10.8 10*3/uL 11/29/2024 3:19 PM EDT [facility] RBC 4.93 4.20 - 5.80 10*6/uL 11/29/2024 3:19 PM EDT [facility] Hemoglobin 14.4 13.2 - 17.1 g/dL 11/29/2024 3:19 PM EDT [facility] Hematocrit 44.1 38.5 - 50.0 % 11/29/2024 3:19 PM EDT [facility] MCV 89.5 80.0 - 100.0 fL 11/29/2024 3:19 PM EDT [facility] MCH 29.2 27.0 - 33.0 pg 11/29/2024 3:19 PM EDT [facility] MCHC 32.7 32.0 - 36.0 g/dL 11/29/2024 3:19 PM EDT [facility] RDW 13.3 11.0 - 15.0 % 11/29/2024 3:19 PM EDT [facility] Platelets 194 140 - 400 10*3/uL 11/29/2024 3:19 PM EDT [facility] MPV 9.5 7.5 - 12.5 fL 11/29/2024 3:19 PM EDT [facility] Neutrophil % 64.2 % 11/29/2024 3:19 PM EDT [facility] Immature Grans % 0.3 0.0 - 0.9 % 11/29/2024 3:19 PM EDT [facility] Lymphocyte % 24.0 % 11/29/2024 3:19 PM EDT [facility] Monocyte % 9.6 % 11/29/2024 3:19 PM EDT [facility] Eosinophil % 1.3 % 11/29/2024 3:19 PM EDT [facility] Basophil % 0.6 % 11/29/2024 3:19 PM EDT [facility] Neutrophil # 4.44 1.50 - 7.80 10*3/uL 11/29/2024 3:19 PM EDT [facility] Immature Grans # <0.03 <=0.03 10*3/uL 11/29/2024 3:19 PM EDT [facility] Lymphocyte # 1.70 0.85 - 3.90 10*3/uL 11/29/2024 3:19 PM EDT [facility] Monocyte # 0.70 0.20 - 0.95 10*3/uL 11/29/2024 3:19 PM EDT [facility] Eosinophil # 0.10 0.02 - 0.50 10*3/uL 11/29/2024 3:19 PM EDT [facility] Basophil # <0.03 0.00 - 0.20 10*3/uL 11/29/2024 3:19 PM EDT [facility] nRBC % 0.0 /100 WBCs 11/29/2024 3:19 PM EDT [facility] nRBC # <0.01 <0.01 10*3/uL 11/29/2024 3:19 PM EDT [facility] Blood Structure of peripheral vein / Unknown Venipuncture / Unknown 11/29/2024 2:54 PM EDT 11/29/2024 3:09 PM EDT us Virginia Cm NP LAB BLOOD ORDERABLES Final R esult [facility] [address] [place] [address], [place] * (ABNORMAL) Comprehensive Metabolic Panel (11/29/2024 2:54 PM EDT) NA 140 135 - 145 mmol/L 11/29/2024 3:53 PM EDT [facility] K 4.5 3.5 - 5.3 mmol/L 11/29/2024 3:53 PM EDT [facility] Cl 103 98 - 107 mmol/L 11/29/2024 3:53 PM EDT [facility] CO2 25 22 - 32 mmol/L 11/29/2024 3:53 PM EDT [facility] Anion Gap 12 5 - 15 11/29/2024 3:53 PM EDT [facility] Glucose 85 65 - 99 mg/dL 11/29/2024 3:53 PM EDT [facility] Creatinine 1.16 0.60 - 1.30 mg/dL 11/29/2024 3:53 PM EDT [facility] Calcium 9.4 8.6 - 10.5 mg/dL 11/29/2024 3:53 PM EDT [facility] Total Protein 7.3 6.0 - 8.0 g/dL 11/29/2024 3:53 PM EDT [facility] Albumin 4.3 3.5 - 5.2 g/dL 11/29/2024 3:53 PM EDT [facility] Bilirubin, Total 0.8 0.2 - 1.2 mg/dL 11/29/2024 3:53 PM EDT [facility] Alkaline Phosphatase 110 35 - 129 U/L 11/29/2024 3:53 PM EDT [facility] AST 27 10 - 40 U/L 11/29/2024 3:53 PM EDT [facility] ALT 25 10 - 40 U/L 11/29/2024 3:53 PM EDT [facility] BUN 20 7 - 23 mg/dL 11/29/2024 3:53 PM EDT [facility] eGFR 65 >=60 mL/min/1. 73m2 11/29/2024 3:53 PM EDT [facility] Comment:The estimated glomer ular filtration rate (eGFR) is calculated using a new formula developed by the NKF-ASN task force to eliminate race-based correction factors. The new formula uses serum/plasma creatinine, age, and gender to determine eGFR. A value below 60mls/min might indicate kidney disease and will be flagged. For additional information, see Diaz et al, Am J Kidney Dis. 2021;79(2):268- 288, A Unifying Approach for GFR estimation: Recommendations of the NKF-ASN Task Force on Reassessing the Inclusion of Race in Diagnosing Kidney Disease . Globulin, Total 3.0 2.1 - 4.2 g/dL 11/29/2024 3:53 PM EDT [facility] A/G Ratio 1.4(L) 1.5 - 3.0 11/29/2024 3:53 PM EDT [facility] Blood Structure of peripheral vein / Unknown Venipuncture / Unknown 11/29/2024 2:54 PM EDT 11/29/2024 3:18 PM EDT us Virginia Cm NP LAB BLOOD ORDERABLES Final R esult [facility] [address] [place] [address], [place] * CT Chest W Contrast (11/29/2024 1:17 PM EDT) Anatomical Region Laterality Modality Body Computed Tomogra phy 11/29/2024 1:46 PM EDT Impressions 11/29/2024 1:58 PM EDT Impression: 1. No evidence of metastatic disease within the chest. No evidence of a pulmonary nodule or adenopathy within the chest. 2. Within the right lobe of liver there is a 5.5 cm x 5.3 cm mass corresponding to the lesion seen on the outside abdominal MRI performed on 10/28/2024 and the outside abdominal ultrasound performed on 09/27/2024. Patient is reportedly diagnosed with hepatocellular carcinoma. 3. Moderate to large sized hiatal hernia. If this radiology report contains a blank impression section, it is an incomplete radiology report. Please contact the interpreting radiologist or applicable radiology division as soon as possible to obtain the completed interpretation. Workstation ID: [id number] Up-to-date CT equipment and radiation dose reduction techniques were employed. CTDIvol: 11.5 mGy. DLP: 402 mGy-cm. Narrative 11/29/2024 1:58 PM EDT Indication: new diagnosis HCC, assess for extrahepatic spread C22.0 - I10 - Liver cell carcinoma, Comparison: Outside abdominal MRI performed on 10/28/2024. Outside abdominal ultrasound performed on 09/27/2024. Dose: For radiation dose control at least one of the following techniques was used in this procedure (1) Automated exposure control (2) Adjustment of the mA and/or kV according to patient size (3) Use of iterative reconstruction technique. Findings: Neck and thoracic inlet: The thyroid gland is unremarkable. Mediastinum and large vessels: Aorta The thoracic aorta is normal in size. Pulmonary arteries The pulmonary arteries are normal. Esophagus There is a moderate to large sized hiatal hernia. Other mediastinal findings No other abnormal mediastinal findings are present. Heart: Cardiac size The heart is normal in size. Coronary arteries Mild coronary calcifications. Valves No valvular calcifications. Pericardium No abnormality. Lymph nodes: Supraclavicular and axillary Normal sized lymph nodes, no enlarged lymph nodes. Mediastinal Normal sized lymph nodes, no enlarged lymph nodes. Hilar Normal sized lymph nodes, no enlarged lymph nodes. Others None. Lung parenchyma: The lungs are clear bilaterally. There is no evidence of a pulmonary nodule. Airways: The trachea and mainstem bronchi are normal. The airways are unremarkable. Pleura: No abnormality. Upper abdomen: Within the right lobe of liver there is a 5.5 cm x 5.3 cm mass on image 259 of series 905 corresponding to the lesion seen on the outside abdominal MRI performed on 10/28/2024 and the outside abdominal ultrasound performed on 09/27/2024. Chest wall and bones: Degenerative changes are present within the thoracic spine. The soft tissues of the chest wall are unremarkable. Resulting Agency Comment [id number] Procedure Note Stew Maxwell MD - 11/29/2024 Indication: new diagnosis HCC, assess for extrahepatic spread C22.0 - I10- Liver cell carcinoma, Comparison: Outside abdominal MRI performed on 10/28/2024. Outside abdominal ultrasound performed on 09/27/2024. Dose: For radiation dose control at least one of the following techniqueswas used in this procedure (1) Automated exposure control (2) Adjustmentof the mA and/or kV according to patient size (3) Use of iterativereconstruction technique. Findings: Neck and thoracic inlet: The thyroid gland is unremarkable. Mediastinum and large vessels: Aorta The thoracic aorta is normal in size. Pulmonary arteries The pulmonary arteries are normal. Esophagus There is a moderate to large sized hiatal hernia. Other mediastinal findings No other abnormal mediastinal findings are present. Heart: Cardiac size The heart is normal in size. Coronary arteries Mild coronary calcifications. Valves No valvular calcifications. Pericardium No abnormality. Lymph nodes: Supraclavicular and axillary Normal sized lymph nodes, no enlarged lymph nodes. Mediastinal Normal sized lymph nodes, no enlarged lymph nodes. Hilar Normal sized lymph nodes, no enlarged lymph nodes. Others None. Lung parenchyma: The lungs are clear bilaterally. There is no evidence of a pulmonarynodule. Airways: The trachea and mainstem bronchi are normal. The airways areunremarkable. Pleura: No abnormality. Upper abdomen: Within the right lobe of liver there is a 5.5 cm x 5.3 cm mass on of series 905 corresponding to the lesion seen on the outsideabdominal MRI performed on 10/28/2024 and the outside abdominal ultrasoundperformed on 09/27/2024. Chest wall and bones: Degenerative changes are present within the thoracic spine. The softtissues of the chest wall are unremarkable. IMPRESSION: Impression: 1. No evidence of metastatic disease within the chest. No evidence of apulmonary nodule or adenopathy within the chest. 2. Within the right lobe of liver there is a 5.5 cm x 5.3 cm masscorresponding to the lesion seen on the outside abdominal MRI performed on10/28/2024 and the outside abdominal ultrasound performed on 09/27/2024.Patient is reportedly diagnosed with hepatocellular carcinoma. 3. Moderate to large sized hiatal hernia. If this radiology report contains a blank impression section, it is anincomplete radiology report. Please contact the interpreting radiologistor applicable radiology division as soon as possible to obtain thecompleted interpretation. Workstation ID: [id number] Up-to-date CT equipment and radiation dose reduction techniques wereemployed. CTDIvol: 11.5 mGy. DLP: 402 mGy-cm. Virginia Cm NP IMG CT PROCEDURES Final Resu lt from Last 3 Months Insurance [facility] MCR REPLACE PPO Advance Directives * Presumed Full Code (Latest Code Status on File) Date Activated Date Inactivated Comments 01/23/2025 2:49 PM 01/24/2025 2:46 AM * Full Code Date Activated Date Inactivated Comments 12/11/2024 12:45 PM 12/12/2024 2:56 AM Care Teams Processor Grain Relationship Specialty Start Date End Date Janel Pitts [address] [facility] [address] Maximo [place], [place] [address] PCP - General Internal Medicine 11/13/24
--- OUTSIDE RECORDS SUMMARY | 2025-02-08 10:53 | XMS_ITS | Encounter Summary ---
Author Organization [facility] Address [address] [place] [address] Care Team Providers Care Fruit Receiver Name Role Phone Janel Pitts Primary Care Provider [phone] Encounter Details Date Type Department Care Team (Late st Contact Info) Description 01/15/2025 [facility] Interventional Radiology [address] [place] [address] [phone] Lyn Hanks RN Social History Tobacco Use Types Packs/Day Years [...] on filedocumented in this encounter Care Teams Fruit Receiver Relationship Specialty Start Date End Date Janel Pitts [address] [place] [address] [place] [address] PCP - General Internal Medicine 11/13/24 documented as of this encounter
--- OUTSIDE RECORDS SUMMARY | 2025-02-08 10:53 | XMS_ITS | Encounter Summary ---
Author Organization [facility] Address [address] [place] [address] Care Team Providers Care Marble Mechanic Helper Name Role Phone Janel Pitts Primary Care Provider [phone] Encounter Details Date Type Department Care Team (Late st Contact Info) Description 11/15/2024 Orders Only [facility] Interventional Radiology [address] [place] [address] Marco Paul DO [address] [place] [address] Social History Tobacco Use Types Packs/Day Years Used Date Smoking Tobacco: Never Assessed Sex and Gender Information Value Date Recorded Sex Assigned at Male 11/09/2024 11:59 AM EDT Legal Sex Male 11:58 AM EDT Gender Identity Male 11/13/2024 9:46 AM EDT Sexual Orientation Straight 12/05/2024 2: 22 PM EDT documented as of this encounter Plan of Treatment Not on file documented as of this encounter Visit Diagnoses Not on filedocumented in this encounter Care Teams Marble Mechanic Helper Relationship Specialty Start Date End Date Janel Pitts [address] [place] [address] [place] [address] PCP - General Internal Medicine 11/13/24 documented as of this encounter
--- OUTSIDE RECORDS SUMMARY | 2025-02-08 10:53 | XMS_ITS | Encounter Summary ---
Author Organization [facility] Address [address] [place] [address] Care Team Providers Care Nursery Laborer Name Role Phone Janel Pitts Primary Care Provider [phone] Encounter Details Date Type Department Care Team (Late st Contact Info) Description 12/07/2024 [facility] Interventional Radiology [address] [place] [address] [phone] Milana Lee, ERIS Social History Tobacco Use Types Packs/Day Years [...] on filedocumented in this encounter Care Teams Nursery Laborer Relationship Specialty Start Date End Date Janel Pitts [address] [place] [address] [place] [address] PCP - General Internal Medicine 11/13/24 documented as of this encounter
--- OUTSIDE RECORDS SUMMARY | 2025-02-08 10:53 | XMS_ITS | Encounter Summary ---
Author Organization [facility] Address [address] [place] [address] Care Team Providers Care Field Interviewer Name Role Phone Janel Pitts Primary Care Provider [phone] Encounter Details Date Type Department Care Team (Late st Contact Info) Description 12/19/2024 Orders Only [facility] Interventional Radiology [address] [place] [phone] [place] Zuniga, [place] [address] [place] [address] Social History Tobacco Use Types Packs/Day Years [...] on filedocumented in this encounter Care Teams Field Interviewer Relationship Specialty Start Date End Date Janel Pitts [address] [place] [address] [place] [address] PCP - General Internal Medicine 11/13/24 documented as of this encounter
--- OUTSIDE RECORDS SUMMARY | 2025-02-08 10:53 | XMS_ITS | Encounter Summary ---
Author Organization [facility] Address [address] [place] [address] Care Team Providers Care Cargo Services Coordinator Name Role Phone Janel Pitts Primary Care Provider [phone] Encounter Details Date Type Department Care Team (Late st Contact Info) Description 12/19/2024 Results Follow-Up [facility]plant Services [address] [place] [address] Virginia Cm NP [address] [facility] [place] [address] Social History Tobacco Use Types Packs/Day Years [...] on filedocumented in this encounter Care Teams Cargo Services Coordinator Relationship Specialty Start Date End Date Janel Pitts [address] [place] [address] [place] [address] PCP - General Internal Medicine 11/13/24 documented as of this encounter
--- OUTSIDE RECORDS SUMMARY | 2025-02-08 10:53 | XMS_ITS | Patient Health Record ---
Author Organization [facility] Address [address] [place] [address] Care Team Providers Care Finance Clerk Name Role Phone Janel Pitts MD Primary Care Provider Guanaco Bansal Unavailable [phone] Allergies No Known Allergies Results Component Value Reference Range Notes Complete Blood Count Auto Di ff Reviewed date:09/27/2024 11:18:00 PM Interpretation: Performing Lab:[facility], [address] [place] [phone] Notes/Report: White Blood Count 6.4 4.8-10.8 X10*3/uL [...] INR Reviewed date:09/27/2024 11:17:44 PM Interpretation: Performing Lab:[address] [address] Notes/Report: Prothrombin Time 11.5 10.9-12.4 [employer] [...] Panel Reviewed date:09/27/2024 11:17:35 PM Interpretation: Performing Lab:[address] [id number] Notes/Report: Bilirubin Total 0.9 0.0-1.0 mg/dL Bilirubin Direct 0.3 0.0-0.5 mg/dL Aspartate Amino Transferase 23 5-37 U/L Alanine Aminotransferase 23 0-40 U/L Total Protein 7.4 6.5-8.0 g/dL Albumin Level 4.4 3.5-5.0 g/dL Alkaline Phosphatase 88 39-117 U/L Alpha Fetoprotein Reviewed date:10/09/2024 09:14:03 AM Interpretation: Performing Lab:[address] [address] Notes/Report: Alpha Fetoprotein 1.6 <6.1 ng/mL This test was performed using the Artur Adrian chemiluminescent method. Values obtained from different assay methods cannot be used interchangeably. AFP levels, regardless of value, should not be interpreted as absolute evidence of the presence or absence of disease. THIS TEST WAS PERFORMED AT: [facility] [address] [place] [id number] VIKAS CONRAD MD Liver Fibrosis Pnl Reviewed date:10/09/2024 09:14:14 AM Interpretation: Performing Lab:[facility], [address] [place] [phone] Notes/Report: Liver Fibrosis Score 0.70 Liver Fibrosis [...] a>0.62 and a<=1.00 : A3 (severe activity) HJM-Pypsu-3-Macroglobulin 288 106-279 mg/dL FIB-Haptoglobin 83 43-212 mg/dL FIB-Apolipoprotein A1 149 94-176 mg/dL FIB-Total Bilirubin 0.6 0.2-1.2 mg/dL FIB-GGT 52 3-70 U/L FIB-ALT 16 9-46 U/L Reference ID [id number] Footnote SEE NOTE The reliability of results [...] The performance characteristics have been determined by [facility]. It has not been cleared or approved by the U.S. Food and Drug Administration. Performance characteristics refer to the analytical performance of the test. Namely, the associated logo, [employer] and all associated [employer] huizar are the registered trademarks of [employer]. All third green party huizar - (R) and (TM) - are the property of their respective owners. (C) 8438-0521 [employer]. All rights reserved. THIS TEST WAS PERFORMED AT: [employer] [facility] [address] [place] [address] ANAY NUNEZ MD,PHD,DIOR US abdomen comp w elastograp hy (Not yet reviewed by provider) Interpretation: Performing Lab: Notes/Report: [address] [address] Ultrasound Report Signed Patient: Guanaco Cheema MR#: [id number] [birth year] : 1945 Acct:[id number] Age/Sex: 79 / M ADM Date: 09/27/24 Loc: HO.US Attending Dr: Guanaco Mills MD Ordering Physician: Guanaco Mills MD Date of Service: 09/27/24 Procedure(s): US abdomen comp w elastography Accession Number(s): [id number] cc: Janel Pitts MD; Guanaco Mills MD EXAMINATION: US COMPLETE ABDOMEN WITH LIVER ELASTOGRAPHY CLINICAL INFORMATION: History of hepatitis C. COMPARISON: 02/14/2019. No prior elastography. TECHNIQUE: Real-time imaging of the abdominal viscera. Noninvasive ultrasound liver fibrosis assessment is performed using Raymond ElastPQ point quantification shear wave elastography (pSWE) [...] Fabian Fry MD 09/27/2024 11:38 AM EDT RP Dictated By: Fabian Fry MD Signed By: <Electronically signed by Fabian Fry MD in OV> 09/27/24 1138 DD/ 1039 TD/TT: 09/27/24 1107 Data Warehouse Specialist: MR abdomen wo/w con Reviewed date:11/04/2024 08:35:38 PM Interpretation: Performing Lab: Notes/Report: [address] [address] Magnetic Resonance Report Signed with Addenda Patient: Guanaco Cheema MR#: [id number] 71 : 1945 Acct:[id number] Age/Sex: 79 / M ADM Date: 10/28/24 Loc: HO.MRI Attending Dr: Guanaco Mills MD Ordering Physician: Guanaco Mills MD Date of Service: 10/28/24 Procedure(s): MR abdomen wo/w con Accession Number(s): [id number] cc: Janel Pitts MD; Guanaco Mills MD ADDENDUM ADDENDUM #1 Text message acknowledged as received on 10/29/2024. Electronically signed by: Guanaco Storm MD 10/29/2024 09:22 AM EDT Addendum Dictated By: Guanaco Storm MD Addendum Signed By: <Electronically signed by Guanaco Storm MD in OV> 10/29/24 09 Addendum Cosigned By: DD/ TD/TT: 10/28/24 EXAMINATION: MR ABDOMEN WITHOUT THEN WITH IV CONTRAST HISTORY: ABNORMAL LIVER US H/O HEP C COMPARISON: Correlation is made with an abdominal ultrasound dated 09/27/2024. TECHNIQUE: Axial in and out of phase T1-weighted gradient echo, axial diffusion weighted, and axial and coronal HASTE T2 with fat saturation images were obtained through the abdomen. Subsequently, fat suppressed axial and coronal T1-weighted images were obtained after the intravenous administration of 10 mL Gadavist. FINDINGS: Liver: There is no loss of signal intensity in the liver on opposed phase imaging to suggest steatosis. A lesion is noted corresponding to the abnormality seen on ultrasound which is described below: Lesion #: 1 Location: segment VIII Size: 5.3 x 5.4 x 5.3 cm T2 signal intensity: Heterogeneous with multiple hyper and hypointense areas noted. Arterial Phase Hyperenhancement (APHE): yes Additional Major Features Enhancing Capsule: yes Nonperipheral washout: no Threshold Growth: yes, new lesion LI-RADS Category: LR-5 Definitely HCC The hepatic and portal veins are patent. There is arterial hyperenhancement distal to the lesion which likely represents a transient hepatic intensity difference (THID) secondary to the mass. There is no intrahepatic biliary dilatation. Gallbladder/biliary tree: No gallstones are identified. The common bile duct is normal in caliber. No intraluminal filling defects are identified to suggest choledocholithiasis. Spleen: The spleen is unremarkable. Pancreas: The pancreas is unremarkable. There is no enhancing pancreatic mass. The pancreatic duct is normal in caliber. Adrenals: The adrenal glands are unremarkable. Kidneys: The right kidney is unremarkable. There are tiny cysts in the left kidney. There is no hydronephrosis. Lymph nodes: There is no retroperitoneal lymphadenopathy in the upper abdomen. Fluid: There is no ascites in the upper abdomen. Visualized bowel: There is a large hiatal hernia. The visualized small and large bowel loops are unremarkable in appearance. Visualized bones: The visualized bones demonstrate normal marrow signal intensity. MR/MR abdomen wo/w con IMPRESSION: 5.3 x 5.4 x 5.3 cm mass in segment VIII of the liver corresponding to the abnormality seen on ultrasound. This demonstrates a LI-RADS 5 lesion, compatible with hepatocellular carcinoma. Findings were communicated to Dr. Guanaco Mills by secure text message on 10/29/2024 at 8:12 AM. Electronically signed by: Guanaco Storm MD 10/29/2024 08:13 AM EDT Dictated By: Guanaco Storm MD Signed By: <Electronically signed by Guanaco Storm MD in OV> 10/29/24 0813 DD/ 1255 TD/TT: 10/28/24 1333 Data Warehouse Specialist: Pathology (Not yet reviewed by provider) Interpretation: Performing Lab:[facility], [address] [place] [phone] Notes/Report: Reason For Referral No Information Medications Medication SIG (Take, Route, Frequency, Duration) Notes Start Date End Date Status Vitamin D 25 MCG (1000 UT) 1 tablet Oral ly Once a day; Duration: 30 day(s) Active Percocet 5-325 MG 1 tablet as needed O rally every 6 hrs Active Vitamin B12 100 MCG as directed Orally Active Sertraline HCl 50 MG 1 tablet Orally Once a day Active CeleBREX 100 MG 1 capsule with food Orally Once a day; Duration: 30 day(s) Active Atenolol 100 MG 1 tablet Orally Once a day 014 Active Lisinopril 40 MG 1 tablet Orally Once a day 2013 Active Immunizations Vaccine Route Administration Date Status Comme nts Influenza Unknown 02/05/2019 Administered Problems Problem Type SNOMED Code ICD Code Onset Dates Problem Status W/U Status Risk Notes Problem Screening for malignant neoplasm of colon (700960396) Encounter for screening for malignant neoplasm of colon (Z12.11) Active confirmed Problem Family History of Cancer of Colon (Situation) (469028731) Family history of colon cancer (Z80.0) Active confirmed Problem Abnormal findings diagnostic imaging of liver and biliary tract (025246774) Abnormal liver ultrasound (R93.2) Active confirmed Problem Pre-procedure evaluation check (512204188) Pre-procedural examination (Z01.818) Active confirmed Problem History of hepatitis C (93232363861241) History of hepatitis C (Z86.19) Active confirmed Problem History of adenomatous polyp of colon (855957897) History of adenomatous polyp of colon (Z86.0101) Active confirmed Vital Signs Blood pressure diastolic 77 mm Hg 08/14/2024 Height 70 in 08/14/2024 Blood pressure systolic 111 mm Hg 08/14/2024 Weight 229 lbs 08/14/2024 BMI 32.85 kg/m2 08/14/2024 Procedures Procedure Date Ordered Date Performed Result Body Sit e COLONOSCOPY 08/14/2024 N/A Encounters Encounter Location Date Provider Diagnosis [facility] Outpatient [address] [place] [phone] 11/12/2024 Guanaco Mills [facility] [address] [place] [phone] 08/14/2024 Guanaco Mills Family history of colon cancer Z80.0 ; Pre-procedural examination Z01.818 ; Encounter for screening for malignant neoplasm of colon Z12.11 ; History of hepatitis C Z86.19 and History of adenomatous polyp of colon Z86.0101 [facility] [address] [place] [phone] 09/27/2024 Guanaco Mills Abnormal liver ultrasound R93.2 and History of hepatitis C Z86.19 [facility] [address] [place] [phone] 10/30/2024 Guanaco Mills [facility] [address] [place] [phone] 11/09/2024 Guanaco Mills [facility] [address] [place] [phone] 11/19/2024 Guanaco Mills Assessments Encounter Date Diagnosis (ICD Code) Assessment [...] again for allowing me to participate in iNlay's care. I shall continue to keep you [...] 08/14/2024 Creatinine 09/27/2024 Liver Fibrosis Pnl 08/14/2024 Pathology 11/12/2024 US abdomen comp w elastography US abdomen comp w elastography 5 Future Test Test Name Order Date COLONOSCOPY 08/14/2013 COLONOSCOPY 02/06/2019 Next Appt Details Provider Name:Guanaco Mills , 05/16/2025 09:40:00 AM, [address] [place] [address], [address], [place], [address], Insurance Providers Payer Name Payer Address Payer Phone Subscriber Number Group Number Insured Name Patient Relationship to Insured Coverage Start Date Coverage End Date [facility] [address] [place], [place] [id number] GUANACO CHEEMA Self - patient is the insured Medical (General) History Medical History History ICD Code Colonoscopy in 1998, 2003, 10/2008, 4--all neg for adenomas Diverticulosis Hepatitis C--treated success fully in 2003 with 1 year of pegylaed IF and Ribavirin--liver bx in 1994 with some inflammation, but no sig fibrosis--- his hepatitis C viral load was negative in 2006 and 2018 Hypertension Denies [place],DM,CVA,Lung disease,renal dise ase Arthritis Colonoscopy 04/2019 2 tubular adenomas re moved Surgical History Surgery Date(Month/Year) knee replacements bilateral approx 2016 carpal tunnel on right wrist elbow finger surgery carpal tunnel left wrist surgery for an umbilical hernia
--- OUTSIDE RECORDS SUMMARY | 2025-02-08 10:53 | XMS_ITS ---
Author Organization [facility] Address [address] [place] [address] Care Team Providers Care Life Teacher Name Role Phone Janel Pitts Primary Care Provider [phone] Active Problems Problem Noted Date Diagnosed Date Advanced hepatic fibrosis 11/29/2024 Primary hypertension 11/29/2024 Hepatocellular carcinoma 11/15/2024 Nontraumatic complete tear of left rotator cuff 09/06/2024 Idiopathic osteoarthritis 03/09/2016 Overview (11/29/2024): Problem Code: M17.12; Problem Code Type: ICD-10; Status: 'A'; Current Treatment and Therapy Plans No current plan information found. Past Treatment and Therapy Plans No past plan information found. Lifetime Dose Tracking * Chemical Lifetime Dose Automatic Entry Manual Entr y Fluoro Time 78.5 minutes 0 minutes 78.5 minutes TotalDLP 402 mGy 402 mGy 0 mGy [id number] 4.1 mSv 4.1 mSv 0 mSv CTDIvol Max 11.5 mGy 11.5 mGy 0 mGy CTDIvol Min 11.5 mGy 11.5 mGy 0 mGy Radiation - mGy 4,660 mGy 0 mGy 4,660 mGy
== END 2025-02-08 10:27 | disposition home or self-care (01) ==
LOC: HO.HMCH 09:43
PROVIDERS: PCP Internal Medicine; Visit Provider Internal Medicine
DX: R73.01 Impaired fasting glucose (principal); C22.0 Liver cell carcinoma; E66.9 Obesity, unspecified; Z68.31 Body mass index [BMI] 31.0-31.9, adult; I10 Essential (primary) hypertension; M89.49 Other hypertrophic osteoarthropathy, multiple sites; Z23 Encounter for immunization

== ENCOUNTER → 2025-02-08 09:42 | Outpatient (BNVA) | payer MEDICARE, SELFPAY | PROVIDERS: PCP Internal Medicine; Visit Provider Internal Medicine | DX: C22.0 Liver cell carcinoma (principal); R73.01 Impaired fasting glucose; E66.9 Obesity, unspecified; I10 Essential (primary) hypertension; M89.49 Other hypertrophic osteoarthropathy, multiple sites; Z23 Encounter for immunization | CPT/HCPCS: 90471; 90656; 96127; 99212 ==

== ENCOUNTER 2025-04-09 10:10 | Outpatient (REF) | payer MEDICARE, SELFPAY ==
--- OUTSIDE RECORDS SUMMARY | 2024-11-12 02:30 | XMS_ITS ---
Author Organization [facility] Address [address] [place] [address] Care Team Providers Care Upholstery Handler Name Role Phone Janel Pitts MD Primary Care Provider Guanaco Bansal Unavailable [phone] REASON FOR VISIT screening,hx polyps,fam hx colon ca Encounters Encounter Location Date Provider Diagnosis [facility] Outpatient [address] [place] [id number] 11/12/2024 Guanaco Mills Plan Of Treatment Next Appt Details Provider Name:Guanaco Mills , 05/16/2025 09:40:00 AM, [address], [address], [place], [address], Progress Notes * DENI GUANACODOB:1945 (79 yo M)Acc No.[id number]:11/12/2024 COLON WITH MAC Patient: Marco GRUBERReedGUANACO Provider: Bruno Mills MD :1945 A ge:79 Y S ex:Male Date:11/12/2024 Address:[address] [place], [place] [phone] Pcp:Janel Pitts MD Subjective: * Chief Complaints: * S creening,hx polyps,fam hx colon ca Billing Information: * Procedure Codes: * The named appointment provid er may or may not be the originator of this progress note, and it is not deemed complete until electronically signed by the appointment provider. Sign off status: Pending * Provider: Bruno Mills MD Date: 0 11/12/2024 Generated for Shelley danielle/Dc/Niya on: 1 01:29 PM EST
[2025-04-09 10:35] LABS: MANUAL DIFF FLAG NO
[2025-04-09 10:50] LABS: Hematocrit 41.5 % (42.0-52.0); Hemoglobin 14.0 g/dl (14.0-18.0); Imm Gran Abs Auto 0.02 X10*3/uL (0.00-0.03); Imm Gran Pct Auto 0.4 % (0.0-0.4); Lymphocytes Absolute Auto 0.6 X10*3/uL (1.2-4.9); Mean Corpuscular HGB Conc 33.7 g/dl (31.0-36.0); Mean Corpuscular Hemoglobin 29.5 pg (27.0-33.0); Mean Corpuscular Volume 87.4 fL (80.0-98.0); NRBC Abs Auto 0.000 X10*3/uL (0.0-0.012); NRBC Pct Auto 0.0 /100WBC (0.0-0.2); Platelet Count 150 X10*3/uL (160-400); Red Blood Count 4.75 X10*6/uL (4.60-5.80); White Blood Count 4.5 X10*3/uL (4.8-10.8)
[2025-04-09 10:59] LABS: INTERNATIONAL NORM RATIO 1.0 (0.9-1.1); Prothrombin Time 12.2 SEC (11.2-13.5)
[2025-04-09 11:43] LABS: Alanine Aminotransferase 36 U/L (0-40); Albumin Level 4.1 g/dL (3.5-5.0); Alkaline Phosphatase 102 U/L (39-117); Anion Gap 10 (12-20); Aspartate Amino Transferase 33 U/L (5-37); Blood Urea Nitrogen 19 mg/dL (9-16); Calcium 9.1 mg/dL (8.4-10.2); Carbon Dioxide 26 mmol/L (22-29); Chloride 110 mmol/L (96-108); Estimated Glomerular Filt Rate > 60; Potassium 4.2 mmol/L (3.3-5.1); Sodium 142 mmol/L (135-145); Total Protein 7.5 g/dL (6.5-8.0)
--- OUTSIDE RECORDS SUMMARY | 2025-04-09 13:29 | XMS_ITS | Clinical Summary ---
Author Organization [facility] Address [address] [place] [address] Care Team Providers Care Transportation Supervisor Name Role Phone Janel Pitts Primary Care Provider [phone] Allergies No known active allergies Medications sertraline [...] Encounters Date Type Department Care Team Description 02/14/2025 Telephone [facility] Transplant Department [address] [place] [address] Virginia Cm NP 02/01/2025 Telephone [facility] Interventional Radiology [address] [place] [address] Juliana Overton LPN 01/23/2025 7:57 AM EDT - 01/23/2025 11:59 PM EDT Hospital Encounter [facility] Nuclear Medicine [address] [place] [id number] Hepatocellular carcinoma Discharge Disposition: Home or Self Care () 01/23/2025 7:56 AM EDT Hospital Encounter [facility] Nuclear Medicine [address] [place] [phone] Hepatocellular carcinoma Discharge Disposition: Home or Self Care () 01/23/2025 7:55 AM EDT Hospital Encounter [facility] Interventional Radiology [address] [place] [address] Yuriy Nguyen MD Hepatocellular carcinoma Discharge Disposition: Home or Self Care () 01/23/2025 7:55 AM EDT Hospital Encounter [facility] 2 Rad Act 2 [address] [place] [address] Discharge Disposition: Home or Self Care () 01/16/2025 9:03 AM EDT - 01/16/2025 11:59 PM EDT Hospital Encounter [facility] Nuclear Medicine [address] [place] [id number] Hepatocellular carcinoma Discharge Disposition: Home or Self Care () 01/16/2025 9:03 AM EDT - 01/16/2025 11:59 PM EDT Hospital Encounter [facility] Interventional Radiology [address] [place] [address] Yuriy Nguyen MD Rodriguez, Elizabeth J, RN Hepatocellular carcinoma Discharge Disposition: Home or Self Care () 01/16/2025 9:01 AM EDT - 01/16/2025 9:02 AM EDT Hospital Encounter [facility] 2 Rad Act 2 [address] [place] [address] Discharge Disposition: Home or Self Care (01) 01/15/2025 Telephone [facility] Interventional Radiology [address] [place] [address] Lyn Hanks RN 01/08/2025 Orders Only [facility] Interventional Radiology [address] [place] [address] Madison Zuniga PA Hepatocellular carcinoma (HCC) (Primary Dx) 01/08/2025 Orders Only [facility] Nuclear Medicine [address] [place] [address] Regino Gamez MD from Last 3 Months Immunizations Immunization Administration Dates Next Due COVID-19, Pfizer, mRNA, Biva lent Booster, PF, 30 mcg/0.3 mL dose (for age 12 y and up) 03/30/2022 Covid-19, Pfizer, mRNA, Malheur valent, PF 30 mcg/0.3 mL dose (for ages 12 and older) 01/24/2021,07/23/2020,07/01/2020 Covid-19, Pfizer, mRNA, Malheur valent, PF, 30 mcg/0.3 mL dose, poncho-sucrose [...] ne, 13 Valent 08/22/2016 Pneumococcal conjugate PCV20,polysaccharide [id number] conjugate, adjuvant, PF (Prevnar 20) 12/08/2021 RSV [...] Years Used Date Smoking Tobacco: Former Cigarettes 0 Q uit: 1997 Smokeless Tobacco: Never Tobacco [...] 01/23/2025 8:30 AM EDT Plan of Treatment Upcoming Encounters Date Type Department Care Team (Late st Contact Info) Description 05/09/2025 3:30 PM EST Follow-Up [facility] [address], [place] [phone] Alysia Otero MD [address] [place], [place] [phone] Health Maintenance Due Date Last Done Comments Hepatitis C Screening 1945 DTaP,Tdap,and Td Vaccines (1 - Tdap) 02/07/2018 02/06/2018 Alcohol/Substance Use Screening 04/11/2024 Depression Screening and Follow-Up 04/11/2024 Health Care Proxy Review 04/11/2024 Social Drivers of Health Annual Screening 04/11/2024 Zoster Vaccines (2 of 2) 05/04/2025 03/09/2025 COVID-19 Vaccine (9 - Pfizer risk season) 2025 03/09/2025, 01/07/2024, 01/15/2023, Additional history exists Basic Metabolic Panel 01/16/2026 01/16/2025, 025 Fall Risk Screening 01/23/2026 01/23/2025 Pneumococcal Vaccine: 50+ Years Completed 12/08/2021, 08/22/2016 RSV Vaccine (60+ years old and patients) Completed 01/15/2023 Influenza Vaccine Completed 02/08/2025, , 01/15/2023, Additional history exists Hepatitis B Vaccines Aged Out No long er eligible based on patient's age to complete this topic Medical Devices Implanted Type Area Coil Taper Device Identifier Shelf Expiration Date Model / Serial / Lot Vascular Occluder [id number] Briceno - [id number] Implanted:Qty: 1 on 01/16/2025 at [facility] Implant [employer] [id number] 05/22/2026 BRICENO-3 / / [id number] Vascular Occluder 1.6gsi5su Briceno - [id number] Implanted:Qty: 1 on 01/16/2025 at [facility] Implant [employer] [id number] 09/18/2025 BRICENO-3 / / [id number] Coil Packing Randi J-Soft 5cm Pod - [id number] Implanted:Qty: 1 on 01/23/2025 at [facility] Implant [employer] [id number] 09/14/2030 RBYPODJ5 / / [id number] Coil Packing Randi J-Soft 5cm Pod - [id number] Implanted:Qty: 1 on 01/23/2025 at [facility] Implant [employer] [id number] 10/13/2030 RBYPODJ5 / / [id number] Explanted Type Area Coil Taper Device Identifier Shelf Expiration Date Model / Serial / Lot Handpiece Single Pack Briceno - [id number] Explanted:Qty: 1 on 01/16/2025 at [facility] Implant [employer] [id number] 05/23/2026 BRICENO-HP -1 / / [id number] Guidewire Hydrophilic Coated Standard Flexible Double Angle Tip Sterile 90/60 Degree [id number] Glidewire Gt - [id number] Explanted:2024 at [facility] (Quantity not on file) Implant [employer] [id number] 04/10/2025 [id number] / / [id number] Procedures * Due to [place] Curate[employer] law, this organization might not be sharing negative HIV tests. Procedure Name Priority Date/Time Associated Diagnosis Comments NM Y90 DOSIMETRY BASIC STAT 01/23/2025 4:01 PM EDT Hepatocellular carcinoma NM Y90 SIRSPHERES THERAPY STAT 01/23/2025 4:00 PM EDT Hepatocellular carcinoma IR Y90 SIRSPHERES EMBOLIZATION STAT 01/23/2025 2:41 PM EDT Hepatocellular carcinoma NM LIVER LUNG SHUNT MAPPING SPECT-CT STAT 01/16/2025 4:07 PM EDT Hepatocellular carcinoma IR PRE-Y90 MAPPING STAT 01/16/2025 3: 15 PM EDT Hepatocellular carcinoma AFP TUMOR MARKER STAT 01/16/2025 8:57 AM EDT Hepatocellular carcinoma (HCC) PROTIME-INR STAT 01/16/2025 8:57 AM EDT Hepatocellular carcinoma (HCC) HEPATIC FUNCTION PANEL STAT 01/16/2025 8:57 AM EDT Hepatocellular carcinoma (HCC) BASIC METABOLIC PANEL STAT 01/16/2025 8:57 AM EDT Hepatocellular carcinoma (HCC) CBC STAT 01/16/2025 8:57 AM EDT Hepatocellular carcinoma (HCC) from Last 3 Months Results * Due to [place] [employer] law, this organization might not be sharing [...] to obtain the completed interpretation. Workstation ID: [id number] Resulting Agency Comment [id number] Procedure Note Yuriy Nguyen MD - 01/29/2025 [...] possible to obtain thecompleted interpretation. Workstation ID: [id number] Yuriy Moser MD [facility] NM PROCEDU RES Final Result * NM [...] to obtain the completed interpretation. Workstation ID: [id number] Resulting Agency Comment [id number] Procedure Note Risa Rizo MD - 01/24/2025 [...] possible to obtain thecompleted interpretation. Workstation ID: [id number] us Yuriy Moser MD IM NM PROCEDU RES Final Result * IR Y90 Sirspheres Embolization (01/23/2025 2:41 PM EDT) Anatomical Region Laterality Modality Body X-Ray Angiograph y 02/13/2025 4:24 PM EST Impressions 02/13/2025 4:44 PM EST Hepatic angiography demonstrates . OR IF APPLICABLE Tumor located in VIII, LI-RADS category 5 from the diagnostic imaging report dated 11/27/2024, was treated with radioembolization. Plan: Follow-up in IR clinic with new sectional imaging in 3 months. PROCEDURE SUMMARY: - Arterial access with ultrasound guidance - Aortography: Not performed - Visceral angiography: Celiac angiography - Selective hepatic angiography: Right hepatic artery - Superselective hepatic angiography: Segment 7 branch, segment 5 branch, segment 8 branch. - Radioisotope administration using a TriNav anti-reflux microcatheter as described below - Additional procedure(s): None PROCEDURE DETAILS: Pre-procedure Consent: Informed consent for [...] physiologic status Total intra-service sedation time (minutes): 200 Access Local anesthesia was administered. The vessel was sonographically evaluated and judged to be patent. Real time ultrasound was used to visualize needle entry into the vessel and a permanent image was stored. A 5 Bengali slender sheath was placed. Laterality: Left Vessel accessed: Radial artery-Barbeau B Access technique: Micropuncture set with 21 gauge needle Access cocktail: Radial access cocktail consisting of Verapamil dose mg verapamil, Nitroglycerin dose mcg nitroglycerin, and Heparin dose units of heparin, homogenized with patient's blood in a Mixture volume mL syringe, was administered slowly via the access sheath. Selective angiography The hepatic arterial system was catheterized using an MG 1 catheter. Indication for angiography: Non-diagnostic angiography - Angiography was performed for roadmapping, fluoroscopic guidance, or vessel measurement. Variant anatomy: None Vessel catheterized: Celiac artery Findings: Type I anatomy. Vessel catheterized: Right hepatic artery Findings: Tumoral blush is seen with feeders arising from the segment 8 artery Vessel catheterized: Segment 7 artery Findings: No tumor blush is seen Vessel catheterized: Segment 5 artery Findings: No tumor blush is seen Vessel catheterized: Segment 8 artery Findings: Tumoral blush is seen arising from the trifurcation of this vessel. Preparatory vessel embolization Catheter position for embolization: Segment 5 vessel Embolization intent: Prevention of non-target embolization Embolic(s): Microcoils Angiographic endpoint: Complete stasis (static contrast column for at least 5 heartbeats) Radioisotope Radioisotope: Yttrium-90 resin microspheres Dosimetry method: Medical Internal Radiation Dosimetry (MIRD) Lung shunt fraction (%): 6 Radioembolization Catheter position: Segment 8 branch Level of embolization: Segmental Administration endpoint: Complete delivery of dose Prescribed dose (Gy): 340 Activity administered (mCi): 38.2 Closure Access site angiography performed: Yes Findings: Patent vessel with appropriate access level Arterial closure technique: Radial compression device Hemostasis achieved from closure technique: Yes Duration of manual compression (minutes): n/a Contrast Contrast agent: Omnipaque 350 Contrast volume (mL): 50 Radiation Dose Fluoroscopy time (minutes): 57.1 Reference air kerma (mGy): 2890 Kerma area product (Gy-cm2): 404 Additional Details Additional description of procedure: None Registry event: Z/3/f Device used: None Equipment details: None Unique Device Identifiers: Not available Specimens removed: None Estimated blood loss (mL): Less than 10 Standardized report: [email or web address] Attestation Signer name: Yuriy Moser I attest that I was present for the entire procedure. I reviewed the stored images and agree with the report as written. If this radiology report contains a blank impression section, it is an incomplete radiology report. Please contact the interpreting radiologist or applicable radiology division as soon as possible to obtain the completed interpretation. Workstation ID: [id number] Narrative 02/13/2025 4:44 PM EST PROCEDURE: Hepatic radioembolization - Radioisotope administration Procedural Personnel Attending physician(s): Yuriy Moser Fellow physician(s): None Resident physician(s): Louis Tinsley Advanced practice provider(s): None Authorized user: Yuriy Moser Pre-procedure diagnosis: Hepatocellular carcinoma Post-procedure diagnosis: Same Indication: Curative intent Additional clinical history: None relevant Vascular invasion: None Complications: No immediate complications. Resulting Agency Comment [id number] Procedure Note Yuriy Nguyen MD - 02/13/2025 PROCEDURE: Hepatic radioembolization - Radioisotope administration Procedural Personnel Attending physician(s): Yuriy Moser Fellow physician(s): None Resident physician(s): Louis Tinsley Advanced practice provider(s): None Authorized user: Yuriy Moser Pre-procedure diagnosis: Hepatocellular carcinoma Post-procedure diagnosis: Same Indication: Curative intent Additional clinical history: None relevant Vascular invasion: None Complications: No immediate complications. IMPRESSION: Hepatic angiography demonstrates . OR IF APPLICABLE Tumor located in VIII, LI-RADS category 5 from the diagnostic imagingreport dated 11/27/2024, was treated with radioembolization. Plan: Follow-up in IR clinic with new sectional imaging in 3 months. PROCEDURE SUMMARY: - Arterial access with ultrasound guidance - Aortography: Not performed - Visceral angiography: Celiac angiography - Selective hepatic angiography: Right hepatic artery - Superselective hepatic angiography: Segment 7 branch, segment 5 branch,segment 8 branch. - Radioisotope administration using a TriNav anti-reflux microcatheter asdescribed below - Additional procedure(s): None PROCEDURE DETAILS: Pre-procedure Consent: Informed consent for [...] and physiologicstatus Total intra-service sedation time (minutes): 200 Access Local anesthesia was administered. The vessel was sonographicallyevaluated and judged to be patent. Real time ultrasound was used tovisualize needle entry into the vessel and a permanent image was stored. A5 Bengali slender sheath was placed. Laterality: Left Vessel accessed: Radial artery-Barbeau B Access technique: Micropuncture set with 21 gauge needle Access cocktail: Radial access cocktail consisting of Verapamil dose mgverapamil, Nitroglycerin dose mcg nitroglycerin, and Heparin dose units ofheparin, homogenized with patient's blood in a Mixture volume mL syringe,was administered slowly via the access sheath. Selective angiography The hepatic arterial system was catheterized using an MG 1 catheter. Indication for angiography: Non-diagnostic angiography - Angiography wasperformed for roadmapping, fluoroscopic guidance, or vessel measurement. Variant anatomy: None Vessel catheterized: Celiac artery Findings: Type I anatomy. Vessel catheterized: Right hepatic artery Findings: Tumoral blush is seen with feeders arising from the segment 8artery Vessel catheterized: Segment 7 artery Findings: No tumor blush is seen Vessel catheterized: Segment 5 artery Findings: No tumor blush is seen Vessel catheterized: Segment 8 artery Findings: Tumoral blush is seen arising from the trifurcation of thisvessel. Preparatory vessel embolization Catheter position for embolization: Segment 5 vessel Embolization intent: Prevention of non-target embolization Embolic(s): Microcoils Angiographic endpoint: Complete stasis (static contrast column for atleast 5 heartbeats) Radioisotope Radioisotope: Yttrium-90 resin microspheres Dosimetry method: Medical Internal Radiation Dosimetry (MIRD) Lung shunt fraction (%): 6 Radioembolization Catheter position: Segment 8 branch Level of embolization: Segmental Administration endpoint: Complete delivery of dose Prescribed dose (Gy): 340 Activity administered (mCi): 38.2 Closure Access site angiography performed: Yes Findings: Patent vessel with appropriate access level Arterial closure technique: Radial compression device Hemostasis achieved from closure technique: Yes Duration of manual compression (minutes): n/a Contrast Contrast agent: Omnipaque 350 Contrast volume (mL): 50 Radiation Dose Fluoroscopy time (minutes): 57.1 Reference air kerma (mGy): 2890 Kerma area product (Gy-cm2): 404 Additional Details Additional description of procedure: None Registry event: Z/3/f Device used: None Equipment details: None Unique Device Identifiers: Not available Specimens removed: None Estimated blood loss (mL): Less than 10 Standardized report: [email or web address] Attestation Signer name: Yuriy Moser I attest that I was present for the entire procedure. I reviewed thestored images and agree with the report as written. If this radiology report contains a blank impression section, it is anincomplete radiology report. Please contact the interpreting radiologistor applicable radiology division as soon as possible to obtain thecompleted interpretation. Workstation ID: [id number] us Virginia Cm NP IMG IR PROCEDURES Final Resu lt * NM Liver Lung Shunt Mapping SPECT [...] to obtain the completed interpretation. Workstation ID: [id number] Impressions 01/16/2025 4:23 PM EDT FINDINGS/IMPRESSION: Tracer [...] to obtain the completed interpretation. Workstation ID: [id number] Narrative 01/16/2025 4:23 PM EDT EXAM: MAA Mapping for Y90 Therasphere therapy INDICATION: History of hepatocellular carcinoma PHARMACEUTICAL: After hepatic arterial catheterization, the patient was administered for mCi of 99mTc-MAA through the arterial catheter. There were no immediate adverse effects. Planar imaging and SPECT-CT of the abdomen were obtained. Resulting Agency Comment [id number] Procedure Note Nilesh Cochran MD PhD - [...] possible to obtain thecompleted interpretation. Workstation ID: [id number] us Yuriy Moser MD IM NM PROCEDU RES Edited Result - Final * IR Pre-Y90 Mapping (01/16/2025 3:15 PM EDT) Anatomical Region Laterality Modality X-Ray Angiograph y 01/16/2025 3:12 PM EDT Impressions 01/17/2025 1:35 PM EDT Radioembolization preparatory angiography with administration of [id number]. Tumoral supply arising from three upgoing segment [...] a permanent image was stored. A 5 citizen of [place] sheath was placed. Laterality: Left Vessel accessed: [...] to obtain the completed interpretation. Workstation ID: [id number] Narrative 01/17/2025 1:35 PM EDT PROCEDURE: Hepatic radioembolization preparatory angiogram and Zl63u-SPE administration Procedural Personnel Attending physician(s): Yuriy Moser [...] Complications: No immediate complications. Resulting Agency Comment [id number] Procedure Note Yuriy Nguyen MD - 01/17/2025 PROCEDURE: Hepatic radioembolization preparatory angiogram and [id number] Procedural Personnel Attending physician(s): Yuriy Moser Fellow [...] complications. IMPRESSION: Radioembolization preparatory angiography with administration [id number]. Tumoral supply arising from three upgoing segment [...] and a permanent image was stored. A5 citizen of the [place] sheath was placed. Laterality: Left Vessel accessed: [...] possible to obtain thecompleted interpretation. Workstation ID: [id number] Virginia Cm NP IMG IR PROCEDURES Final Resu lt * AFP Tumor Marker (01/16/2025 8:57 AM EDT) [facility] Alpha Fetoprotein, Tumor Marker 2.0 <6.1 ng/mL 01/17/2025 9:30 AM EDT [employer] [facility] Comment: This test was performed using the Artur Ellijay chemiluminescent method. Values obtained from different assay methods cannot be used interchangeably. AFP levels, regardless of value, should not be interpreted as absolute evidence of the presence or absence of disease. Blood Structure of peripheral vein / Unknown Venipuncture / Unknown 01/16/2025 8:57 AM EDT 01/16/2025 9:13 AM EDT [facility] 01/17/2025 9:30 AM EDT [facility] Received Date: Madison ROMERO LAB BLOOD ORDERABLES Final Re sult [facility] [address], [place] [address], [place] [phone] [employer] [facility] [address], [place] [address], * Protime-INR (01/16/2025 8:57 AM EDT) Pathologist [facility] PT 10.7 9.6 - 12.4 Seconds 01/16/2025 9:32 AM EDT [facility] INR 1.0 0.9 - 1.1 01/16/2025 9:32 AM EDT [facility] Comment:The optimal therapeu tic INR range for patients treated with Vitamin K antagonists (VKAS, e.g., Warfarin) is 2.0 to 3.5. Discuss the desired range with your doctor/care team. Blood Structure of peripheral vein / Unknown Venipuncture / Unknown 01/16/2025 8:57 AM EDT 01/16/2025 9:13 AM EDT us Madison ROMERO LAB BLOOD ORDERABLES Final Re sult [facility] [address] [place] [address], * CBC (01/16/2025 8:57 AM EDT) WBC 6.6 3.8 - 10.8 10*3/uL 01/16/2025 9:20 AM EDT [facility] RBC 5.02 4.20 - 5.80 10*6/uL 01/16/2025 9:20 AM EDT [facility] Hemoglobin 14.8 13.2 - 17.1 g/dL 01/16/2025 9:20 AM EDT [facility] Hematocrit 45.7 38.5 - 50.0 % 01/16/2025 9:20 AM EDT [facility] MCV 91.0 80.0 - 100.0 fL 01/16/2025 9:20 AM EDT [facility] MCH 29.5 27.0 - 33.0 pg 01/16/2025 9:20 AM EDT [facility] MCHC 32.4 32.0 - 36.0 g/dL 01/16/2025 9:20 AM EDT [facility] RDW 13.2 11.0 - 15.0 % 01/16/2025 9:20 AM EDT [employer] [facility] Platelets 198 140 - 400 10*3/uL 01/16/2025 9:20 AM EDT [facility] [employer] [facility] MPV 9.7 7.5 - 12.5 fL 01/16/2025 9:20 AM EDT [facility] [employer] [facility] Blood Structure of peripheral vein / Unknown Venipuncture / Unknown 01/16/2025 8:57 AM EDT 01/16/2025 9:13 AM EDT us Madison ROMERO LAB BLOOD ORDERABLES Final Re sult [facility] [employer] [facility] [address] [place] [address], * (ABNORMAL) Hepatic Function Panel (01/16/2025 8:57 AM EDT) Total Protein 7.7 6.0 - 8.0 g/dL 01/16/2025 9:43 AM EDT [email or web address] [facility] Albumin 4.3 3.5 - 5.2 g/dL 01/16/2025 9:43 AM EDT [facility] [email or web address] [facility] Globulin, Total 3.4 2.1 - 4.2 g/dL 01/16/2025 9:43 AM EDT [facility] [employer] [facility] Bilirubin, Total 0.8 0.2 - 1.2 mg/dL 01/16/2025 9:43 AM EDT [employer] [facility] [email or web address] [facility] Bilirubin, Direct 0.3 <=0.4 mg/dL 01/16/2025 9:43 AM EDT [email or web address] [facility] Alkaline Phosphatase 190(H) 35 - 129 U/L 01/16/2025 9:43 AM EDT [facility] [email or web address] [facility] AST 54(H) 10 - 40 U/L 01/16/2025 9:43 AM EDT [facility] [email or web address] [facility] ALT 58(H) 10 - 40 U/L 01/16/2025 9:43 AM EDT [facility] Bilirubin, Indirect 0.50 <=0.70 mg/dL 01/16/2025 9:43 AM EDT [employer] [facility] A/G Ratio 1.3(L) 1.5 - 3.0 01/16/2025 9:43 AM EDT [facility] Blood Structure of peripheral vein / Unknown Venipuncture / Unknown 01/16/2025 8:57 AM EDT 01/16/2025 9:13 AM EDT us Madison ROMERO LAB BLOOD ORDERABLES Final Re sult [facility] [address] [place] [address], * (ABNORMAL) Basic Metabolic Panel (01/16/2025 8:57 AM EDT) NA 144 135 - 145 mmol/L 01/16/2025 9:43 AM EDT [facility] K 4.5 3.5 - 5.3 mmol/L 01/16/2025 9:43 AM EDT [facility] Cl 108 97 - 110 mmol/L 01/16/2025 9:43 AM EDT [facility] CO2 24 22 - 32 mmol/L 01/16/2025 9:43 AM EDT [facility] BUN 25(H) 7 - 23 mg/dL 01/16/2025 9:43 AM EDT [facility] Creatinine 1.24 0.60 - 1.30 mg/dL 01/16/2025 9:43 AM EDT [facility] Glucose 117(H) 65 - 99 mg/dL 01/16/2025 9:43 AM EDT [facility] Calcium 9.6 8.6 - 10.5 mg/dL 01/16/2025 9:43 AM EDT [facility] [employer] [facility] Anion Gap 12 5 - 15 01/16/2025 9:43 AM EDT [facility] eGFR 60 >=60 mL/min/1. 73m2 01/16/2025 9:43 AM EDT [facility] Comment:The estimated glomer ular [...] [facility] BLOOD ORDERABLES Final Re sult [facility] [employer] [facility] [address] [place] [address], [place] from Last 3 Months Insurance BCBS MCR REPLACE PPO Advance Directives * Presumed Full Code (Latest Code Status on File) Date Activated Date Inactivated Comments 01/23/2025 2:49 PM 01/24/2025 2:46 AM * Full Code Date Activated Date Inactivated Comments 12/11/2024 12:45 PM 12/12/2024 2:56 AM Care Teams Transportation Supervisor Relationship Specialty Start Date End Date Janel Pitts [address] [place] [address] [place] [address] PCP - General Internal Medicine 11/13/24
--- OUTSIDE RECORDS SUMMARY | 2025-04-09 13:29 | XMS_ITS | Encounter Summary ---
Author Organization [facility] Address [address] [place] [address] Care Team Providers Care Wheelman Name Role Phone Janel Pitts Primary Care Provider [phone] Encounter Details Date Type Department Care Team (Late st Contact Info) Description 11/15/2024 Orders Only [facility] Interventional Radiology [address] [place] [address] Marco Paul DO [address] [place] [address] Social History Tobacco Use Types Packs/Day Years Used Date Smoking Tobacco: Never Assessed Sex and Gender Information Value Date Recorded Sex Assigned at Male 11/09/2024 11:59 AM EDT Legal Sex Male 11:58 AM EDT Gender Identity Male 11/13/2024 9:46 AM EDT Sexual Orientation Straight 12/05/2024 2: 22 PM EDT documented as of this encounter Plan of Treatment Upcoming Encounters Date Type Department Care Team (Late st Contact Info) Description 05/09/2025 3:30 PM EST Follow-Up [facility] Liver Transplant Services [address] [place], [place] [phone] Alysia Otero MD [address] [place] [address] documented as of this encounter Visit Diagnoses Not on filedocumented in this encounter Care Teams Wheelman Relationship Specialty Start Date End Date Janel Pitts [address] [facility] [address] [place]imo [place], [place] [address] PCP - General Internal Medicine 11/13/24 documented as of this encounter
--- OUTSIDE RECORDS SUMMARY | 2025-04-09 13:29 | XMS_ITS | Patient Health Record ---
Author Organization [facility] Address [address] [place] [address] Care Team Providers Care Coremaking Machine Setter Name Role Phone Janel Pitts MD Primary Care Provider Guanaco Bansal Unavailable [phone] Allergies No Known Allergies Results Component Value Reference Range Flag Notes Complete Blood Count Auto Di ff Reviewed date:09/27/2024 11:18:00 PM Interpretation: Performing Lab:[facility], [address] [place] [id number] Notes/Report: White Blood Count 6.4 4.8-10.8 X10*3/uL N Red Blood Count 5.20 4.60-5.80 X10*6/uL N Hemoglobin 15.3 14.0-18.0 g/dl N Hematocrit 46.8 42.0-52.0 % N Mean Corpuscular Volume 90.0 80.0-98.0 fL N Mean Corpuscular Hemoglobin 29.4 27.0-33.0 pg N Mean Corpuscular HGB Conc 32.7 31.0-36.0 g/dl N Red Cell Distribution Width 13.0 11.0-16.0 % N Platelet Count 165 160-400 X10*3/uL N Mean Platelet Volume 9.9 9.4-12.4 fL N Neutrophils Percent Auto 75.8 45-73 % H Imm Gran Pct Auto 0.3 0.0-0.4 % N Lymphocytes Percent Auto 14.0 20-40 % L Monocytes Percent Auto 7.9 2-11 % N Eosinophils Percent Auto 1.4 0-4 % N Basophils Percent Auto 0.6 0-2 % N NRBC Pct Auto 0.0 0.0-0.2 /100WBC N Neutrophils Absolute Auto 4.9 2.0-8.3 x10*3/uL N Imm Gran Abs Auto 0.02 0.00-0.03 X10*3/uL N Lymphocytes Absolute Auto 0.9 1.2-4.9 X10*3/uL L Monocytes Absolute Auto 0.5 0.1-1.2 X10*3/uL N Eosinophils Absolute Auto 0.1 0.0-0.4 X10*3/uL N Basophils Absolute Auto 0.0 0.0-0.2 X10*3/uL N NRBC Abs Auto 0.000 0.0-0.012 X10*3/uL N Prothrombin Time INR Reviewed date:09/27/2024 11:17:44 PM Interpretation: Performing Lab:[address] [phone] Notes/Report: Prothrombin Time 11.5 10.9-12.4 SEC N INTERNATIONAL NORM RATIO 1.0 0.9-1.1 N INTERNATIONAL NORMALIZED RATIO (INR) REFERENCE RANGES Reference [...] Panel Reviewed date:09/27/2024 11:17:35 PM Interpretation: Performing Lab:[address] [phone] Notes/Report: Bilirubin Total 0.9 0.0-1.0 mg/dL N Bilirubin Direct 0.3 0.0-0.5 mg/dL N Aspartate Amino Transferase 23 5-37 U/L N Alanine Aminotransferase 23 0-40 U/L N Total Protein 7.4 6.5-8.0 g/dL N Albumin Level 4.4 3.5-5.0 g/dL N Alkaline Phosphatase 88 39-117 U/L N Alpha Fetoprotein Reviewed date:10/09/2024 09:14:03 AM Interpretation: Performing Lab:[facility], [address] [place] [phone] Notes/Report: Alpha Fetoprotein 1.6 <6.1 ng/mL N This test was performed using the Artur Adrian chemiluminescent method. Values obtained from different assay methods cannot be used interchangeably. AFP levels, regardless of value, should not be interpreted as absolute evidence of the presence or absence of disease. THIS TEST WAS PERFORMED AT: [employer] [address] [place] [phone] VIKAS CONRAD MD Liver Fibrosis Pnl Reviewed date:10/09/2024 09:14:14 AM Interpretation: Performing Lab:[facility], [address] [place] [phone] Notes/Report: Liver Fibrosis Score 0.70 Liver Fibrosis [...] a>0.62 and a<=1.00 : A3 (severe activity) AJK-[id number]-9-Macroglobulin 288 106-279 mg/dL A FIB-Haptoglobin 83 43-212 mg/dL FIB-Apolipoprotein A1 149 94-176 mg/dL FIB-Total Bilirubin 0.6 0.2-1.2 mg/dL FIB-GGT 52 3-70 U/L FIB-ALT 16 9-46 U/L Reference ID [id number] Footnote SEE NOTE The reliability of results [...] The performance characteristics have been determined by [facility]. It has not been cleared or approved by the U.S. Food and Drug Administration. Performance characteristics refer to the analytical performance of the test. [employer], the associated logo, [employer] and all associated [employer] huizar are the registered trademarks of [employer]. All third republican huizar - (R) and (TM) - are the property of their respective owners. (C) 0650-8964 [employer]. All rights reserved. THIS TEST WAS PERFORMED AT: [employer] [facility] [address] [place] [address] ANAY NUNEZ MD,PHD,DIOR US abdomen comp w elastograp hy (Not yet reviewed by provider) Interpretation: Performing Lab: Notes/Report: [address] [address] Ultrasound Report Signed Patient: Guanaco Cheema MR#: [id number] [birth year] : 1945 Acct:[id number] Age/Sex: 79 / M ADM Date: 09/27/24 Loc: HO.US Attending Dr: Guanaco Mills MD Ordering Physician: Guanaco Mills MD Date of Service: 09/27/24 Procedure(s): US abdomen comp w elastography Accession Number(s): [id number] cc: Janel Pitts MD; Guanaco Mills MD [...] 09/27/24 1138 DD/ 1039 TD/TT: 09/27/24 1107 Order Editor: MR abdomen wo/w con Reviewed date:11/04/2024 08:35:38 PM Interpretation: Performing Lab: Notes/Report: [address] [address] Magnetic Resonance Report Signed with Addenda Patient: Guanaco Cheema MR#: [id number] [birth year] : 1945 Acct:[id number] Age/Sex: 79 / M ADM Date: 10/28/24 Loc: .MRI Attending Dr: Guanaco Mills MD Ordering Physician: Guanaco Mills MD Date of Service: 10/28/24 Procedure(s): MR abdomen wo/w con Accession Number(s): [id number] cc: Janel Pitts MD; Guanaco Mills MD ADDENDUM ADDENDUM #1 Text message acknowledged as received on 10/29/2024. Electronically signed by: Guanaco Storm MD 10/29/2024 09:22 AM EDT Addendum Dictated By: Guanaco Storm MD Addendum Signed By: <Electronically signed by Guanaco Storm MD in OV> 10/29/[address] Addendum Cosigned By: DD/ TD/TT: 10/28/24 EXAMINATION: [...] 10/29/24 0813 DD/ 1255 TD/TT: 10/28/24 1333 Order Editor: Pathology (Not yet reviewed by provider) Interpretation: Performing Lab:[facility], [address] [place] [phone] Notes/Report: Reason For Referral No Information Medications Medication SIG (Take, Route, Frequency, Duration) Notes Start Date End Date Status Vitamin D 25 MCG (1000 UT) Tablet 1 tablet Orally Once a day; Duration: 30 day(s) Active Percocet 5-325 MG Tablet 1 tablet as nee ded Orally every 6 hrs Active Vitamin B12 100 MCG Tablet as directed Orally Active Sertraline HCl 50 MG Tablet 1 tablet Orally Once a day 08/14/2013 A ctive CeleBREX 100 MG Capsule 1 capsule with f ood Orally Once a day; Duration: 30 day(s) Active Atenolol 100 MG Tablet 1 tablet Orally Once a day 08/14/2013 Active Lisinopril 40 MG Tablet 1 tablet Orally Once a day 08/14/2013 Active Immunizations Vaccine Route Administration Date Status Comme nts Influenza Unknown 02/05/2019 Administered Social History Social History Additional Details Category Social Info Options Details Miscellaneous: Marital status: Occupation: Retired Section Notes: Nonsmoker; no alcohol-sober for 16 years Nonsmoker; no alcohol-sober for 16 years Nonsmoker; no alcohol-sober for 16 years Problems Problem Type SNOMED Code ICD Code Onset Dates Problem Status W/U Status Risk Notes Problem Screening for malignant neoplasm of colon (836588172) Encounter for screening for malignant neoplasm of colon (Z12.11) Active confirmed Problem Family History of Cancer of Colon (Situation) (015695692) Family history of colon cancer (Z80.0) Active confirmed Problem Abnormal findings diagnostic imaging of liver and biliary tract (176759770) Abnormal liver ultrasound (R93.2) Active confirmed Problem Pre-procedure evaluation check (966842747) Pre-procedural examination (Z01.818) Active confirmed Problem History of hepatitis C (95651588653171) History of hepatitis C (Z86.19) Active confirmed Problem History of adenomatous polyp of colon (044940157) History of adenomatous polyp of colon (Z86.0101) Active confirmed Vital Signs Blood pressure diastolic 77 mm Hg 08/14/2024 Height 70 in 08/14/2024 Blood pressure systolic 111 mm Hg 08/14/2024 Weight 229 lbs 08/14/2024 BMI 32.85 kg/m2 08/14/2024 Procedures Procedure Date Ordered Date Performed Result Body Sit e COLONOSCOPY 08/14/2024 N/A Encounters Encounter Location Date Provider Diagnosis [facility] [address] [place], [place] [id number] 11/12/2024 Guanaco Lina [facility] [address] [place] [phone] 08/14/2024 Guanaco Mills Family history of colon cancer Z80.0 ; Pre-procedural examination Z01.818 ; Encounter for screening for malignant neoplasm of colon Z12.11 ; History of hepatitis C Z86.19 and History of adenomatous polyp of colon Z86.0101 [facility] [address] [place] [phone] 09/27/2024 Guanaco Mills Abnormal liver ultrasound R93.2 and History of hepatitis C Z86.19 [facility] [address] [place] [phone] 10/30/2024 Guanaco Mills [facility] [address] [place] [phone] 11/09/2024 Guanaco Mills [facility] [address] [place] [phone] 11/19/2024 Guanaco Mills Assessments Encounter Date Diagnosis [...] 08/14/2024 CBC w DIFF 08/14/2024 ALPHA-FETOPROTEIN,TUMOR MARKER 9 ALPHA-FETOPROTEIN,TUMOR MARKER 5 ALPHA-FETOPROTEIN,TUMOR MARKER 4 HEPATITIS C VIRAL LOAD 02/06/2019 MRI ABD W&WO CONTRAST 09/27/2024 Prothrombin Time INR 08/14/2024 Creatinine 09/27/2024 Liver Fibrosis Pnl 08/14/2024 Pathology 11/12/2024 US abdomen comp w elastography 5 US abdomen comp w elastography 5 Future Test Test Name Order Date COLONOSCOPY 08/14/2013 COLONOSCOPY 02/06/2019 Next Appt Details Provider Name:Guanaco Mills , 05/16/2025 09:40:00 AM, [address] [place] [address], [facility] [address], [place], [address], Insurance Providers Payer Name Payer Address Payer Phone Subscriber Number Group Number Insured Name Patient Relationship to Insured Coverage Start Date Coverage End Date [facility] [address] [place], [place] [id number] [phone] [id number] GUANACO CHEEMA Self - patient is the insured Medical (General) History Medical History History ICD Code Colonoscopy in 1998, 2003, 10/2008, 4--all neg for adenomas Diverticulosis Hepatitis C--treated success fully in 2003 with 1 year of pegylaed IF and Ribavirin--liver bx in 1994 with some inflammation, but no sig fibrosis--- his hepatitis C viral load was negative in 2006 and 2018 Hypertension Denies IN,DM,CVA,Lung disease,renal dise ase Arthritis Colonoscopy 04/2019 2 tubular adenomas re moved Surgical History Surgery Date(Month/Year) surgery for an umbilical hernia carpal tunnel left wrist finger surgery elbow carpal tunnel on right wrist knee replacements bilateral approx 2015
--- OUTSIDE RECORDS SUMMARY | 2025-04-09 13:30 | XMS_ITS | Encounter Summary ---
Author Organization [facility] Address [address] [place] [address] Care Team Providers Care Veneer Sheet Repairer Name Role Phone Janel Pitts Primary Care Provider [phone] Encounter Details Date Type Department Care Team (Late st Contact Info) Description 12/07/2024 Telephone [facility] Interventional Radiology [address] [place] [address] Milana Lee, ERIS Social History Tobacco Use Types Packs/Day Years Used Date Smoking Tobacco: Former Cigarettes 0 Q uit: 1997 Smokeless Tobacco: Never Alcohol [...] Info) Description 05/09/2025 3:30 PM EST Follow-Up [facility] Liver Transplant Services [address] [place] [address] Alysia Otero MD [address] [place] [address] documented as of this encounter Visit Diagnoses Not on filedocumented in this encounter Care Teams Veneer Sheet Repairer Relationship Specialty Start Date End Date Janel Pitts [address] [facility] [address] [place], [place] [address] PCP - General Internal Medicine 11/13/24 documented as of this encounter
--- OUTSIDE RECORDS SUMMARY | 2025-04-09 13:30 | XMS_ITS ---
Author Organization [facility] Address [address] [place] [address] Care Team Providers Care Help Desk Internship Name Role Phone Janel Pitts Primary Care Provider [phone] Active Problems Problem Noted Date Diagnosed Date [...] TotalDLP 402 mGy 402 mGy 0 mGy [id number] 4.1 mSv 4.1 mSv 0 mSv CTDIvol Max 11.5 mGy 11.5 mGy 0 mGy CTDIvol Min 11.5 mGy 11.5 mGy 0 mGy Radiation - mGy 4,660 mGy 0 mGy 4,660 mGy
--- OUTSIDE RECORDS SUMMARY | 2025-04-09 13:30 | XMS_ITS | Encounter Summary ---
Author Organization [facility] Address [address] [place] [address] Care Team Providers Care Grain Broker And Market Operator Name Role Phone Janel Pitts Primary Care Provider [phone] Encounter Details Date Type Department Care Team (Late st Contact Info) Description 12/19/2024 Orders Only [facility] Interventional Radiology [address] [place] [address] Madison Zuniga, PA [address] [place] [address] Social History Tobacco Use Types Packs/Day Years [...] Info) Description 05/09/2025 3:30 PM EST Follow-Up [facility] Liver Transplant Services [address] [place], [place] [phone] Alysia Otero MD [address] [place] [address] documented as of this encounter Visit Diagnoses Not on filedocumented in this encounter Care Teams Grain Broker And Market Operator Relationship Specialty Start Date End Date Janel Pitts [address] [place] [address] [place] [address] PCP - General Internal Medicine 11/13/24 documented as of this encounter
--- OUTSIDE RECORDS SUMMARY | 2025-04-09 13:30 | XMS_ITS | Encounter Summary ---
Author Organization [facility] Address [address] [place] [address] Care Team Providers Care Supply Teacher Name Role Phone Janel Pitts Primary Care Provider [phone] Encounter Details Date Type Department Care Team (Late st Contact Info) Description 01/08/2025 Orders Only [facility] Nuclear Medicine [address] [place] [address] Regino Gamez MD [address] [place] [phone] Social History Tobacco Use Types Packs/Day Years [...] Info) Description 05/09/2025 3:30 PM EST Follow-Up [facility] Liver Transplant Services [address] [place], [place] [phone] Alysia Otero MD [address] [place], [place] [phone] documented as of this encounter Visit Diagnoses Not on filedocumented in this encounter Care Teams Supply Teacher Relationship Specialty Start Date End Date Janel Pitts [address] [place] [address] [place] [address] PCP - General Internal Medicine 11/13/24 documented as of this encounter
--- OUTSIDE RECORDS SUMMARY | 2025-04-09 13:30 | XMS_ITS | Encounter Summary ---
Author Organization [facility] Address [address] [place] [address] Care Team Providers Care Shale Processing Technician Name Role Phone Janel Pitts Primary Care Provider [phone] Encounter Details Date Type Department Care Team (Late st Contact Info) Description 01/15/[address] [facility] Interventional Radiology [address] [place] [address] Lyn Hanks RN Social History Tobacco Use [...] Info) Description 05/09/2025 3:30 PM EST Follow-Up [facility]- [facility] Liver Transplant Services [address] [place] [address] Alysia Otero MD [address] [place] [address] documented as of this encounter Visit Diagnoses Not on filedocumented in this encounter Care Teams Shale Processing Technician Relationship Specialty Start Date End Date Janel Pitts [address] [facility] [place] [address] PCP - General Internal Medicine 11/13/24 documented as of this encounter
== END 2025-04-09 10:11 ==
LOC: HO.LAB 10:10
PROVIDERS: PCP Internal Medicine; Visit Provider Nurse Practitioner
DX: C22.0 Liver cell carcinoma (principal)
CPT/HCPCS: 36415; 80053; 82105; 85025; 85610